=== PATIENT | female | born 1960 | race Caucasian/White ===

== ENCOUNTER 2016-08-04 17:02 | Emergency (ER) | payer MEDICARE ==
--- NOTE | 2016-08-04 18:10 | ED ---
Complex/Multi-Sys Presentation - HPI Summary HPI Summary: Pt PERRI for fall from height. Was standing on a short step ladder painting her [employer] &[employer] when she lost her balance trying to overreach and fell over the side of the railing. The railing is 2' high and deck base is 3' high - she hit the railing on the way down and hurt her Rt arm trying to catch herself - believes her face hit the deck floor and she then landed on her head in gravel beneath the deck, avoiding the concrete. 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 Has facial soreness and Rt sided ear discomfort. Had nausea during ride over but receivd medication and this has dissipated. Posterior neck pain which radiates into her shoulders - wearing a cervical collar. She has Rt wrist pain as well - worse w/ palpation and movement although she is in an UE splint. She denies chest pain at rest, with palpation or w/ UE movements and deep breathes. Also denies ab pain, pelvic pain. She was able to stand and ambulate after the injury and is moving her LE' s well now w/o pain or difficulty. She had a Lt hip replacement which seems to be okay despite this fall. Denies numbness, tingling, weakness into extremities. Took an ibuprofen around 16:30 prior to coming here in an effort to stay ahead of the inflammation. She has RA and takes enbril, ibuprofen and 1/2 of 5/325mg of norco only on really bad days to take the edge off. Also takes something for hypertension. Former smoker. No known osteoporosis. No reported ETOH abuse. - History Of Current Complaint Chief Complaint: EDTraumaMultiple Time Seen by Provider: 08/04/16 17:40 Hx Obtained From: Patient - Allergies/Home Medications Allergies/Adverse Reactions: Allergies Allergy/AdvReac Type Severity Reaction Status Date / Time No Known Allergies Allergy Verified 12/18/14 12:19 PMH/Surg Hx/FS Hx/Imm Hx Previously Healthy: Yes Endocrine/Hematology History: Reports: Autoimmune Disease - RA Denies: Hx Anticoagulant Therapy, Hx Blood Disorders Cardiovascular History: Reports: Hx Hypertension GI History: Reports: Hx Gall Bladder Disease - s/p cholecystectomy Musculoskeletal History: Reports: Hx Arthritis - RA, Other Musculoskeletal History - Lt THR - no complications Psychiatric History: Denies: Hx Substance Abuse - Cancer History Hx Chemotherapy: No Hx Radiation Therapy: No Infectious Disease History: No Infectious Disease History: Denies: Traveled Outside the [place] in Last 30 Days - Family History Known Family History: Positive: None - Social History 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 Negative: Dental Pain, Nasal Discharge Negative: Palpitations, Chest Pain Negative: Shortness Of Breath, Cough Positive: Nausea - see HPI. Negative: Abdominal Pain, Vomiting, Diarrhea Positive: no symptoms reported Musculoskeletal: Other - see HPI Skin: Other - facial abrasions - last tetanus vaccine in 2012 Positive: Headache - see HPI. Negative: Weakness, Paresthesia, Numbness, Slurred Speech Psychological: Normal All Other Systems Reviewed And Are Negative: Yes Physical Exam Triage Information Reviewed: Yes Vital Signs On Initial Exam: Initial Vitals Temp Pulse Resp BP Pulse Ox 99.4 F 71 16 127/83 93 08/04/16 17:21 08/04/16 17:21 08/04/16 17:21 08/04/16 17:21 08/04/16 17:21 Vital Signs Reviewed: Yes Appearance: Positive: Well-Appearing, Well-Nourished, Pain Distress - mild to moderate Skin: Positive: Warm - superficial abrasion over bridge of nose and even more superficial areas over forehead, cheeks (Rt > Lt) Head/Face: Positive: Normal Head/Face Inspection Eyes: Positive: Normal, EOMI, JAVIER, Conjunctiva Clear. Negative: Conjunctiva Inflammed, Discharge ENT: Positive: Normal ENT inspection, Hearing grossly normal, Pharynx normal, TMs normal - no hemotympanum. Negative: Nasal congestion, Nasal drainage Dental: Positive: Other - maxillary region is edendutlous. Negative: Dental Fracture @ Neck: Positive: Other: - will evaluate after CT scan Respiratory/Lung Sounds: Positive: Clear to Auscultation, Breath Sounds Present. Negative: Rales, Rhonchi, Subcutaneous Emphysema, Stridor, Tracheal Deviation, Wheezes Cardiovascular: Positive: Normal, RRR, Pulses are Symmetrical in both Upper and Lower Extremities. Negative: Leg Edema Left, Leg Edema Right Abdomen Description: Positive: Nontender, No Organomegaly, Soft Bowel Sounds: Positive: Present Musculoskeletal: Positive: Strength/ROM Intact - B/L LE's and Lt UE; Rt shoulder w/ FROM and NTTP however elbow and wrist movments are limited w/ splint in place - moving fingers well but has pain in wrist w/ gripping, MC trigger wrist pain, forearm pain Neurological: Positive: Normal, Sensory/Motor Intact, Alert, Oriented to Person Place, Time, CN Intact II-III Psychiatric: Positive: Normal - Jyoti Coma Scale Coma Scale Total: 15 Procedures - Procedure Summary Procedure Summary: superficial wounds on face cleansed and triple antibiotic applied - pt tolerated well - Splinting Location: Rt wrist Hand-Made Type: fiberglass Splint: sugar-tong Pre-Proc Neuro Vasc Exam: normal Post-Proc Neuro Vasc Exam: normal Diagnostics - Vital Signs Vital Signs Temp Pulse Resp BP Pulse Ox 08/04/16 17:30 77 129/91 95 08/04/16 17:24 76 127/83 93 08/04/16 17:23 78 94 08/04/16 17:21 99.4 F 71 16 127/83 93 - Laboratory Lab Statement: Any lab studies that have been ordered have been reviewed, and results considered in the medical decision making process. Complex Multi-Symp Course/Dx - Diagnoses Provider Diagnoses: Cervical strain, acute, Concussion, Closed fracture of distal end of right radius, Facial abrasion Discharge - Discharge Plan Condition: Stable Disposition: HOME Patient Education Materials: Cervical Strain (ED), Wrist Fracture in Adults (ED ), Concussion (ED), Splint Care (ED), Abrasion (ED) Referrals: Josh Khalil MD [Primary Care Provider] - Jair Simental MD [Medical Doctor] - Additional Instructions: You have a concussion. It is important that you rest both cognitively and physically until cleared by your PCP to do so. Follow-up this Wednesday for a neurological recheck. Call tomorrow to schedule an appointment. You also have a right wrist fracture. You may rest, ice and elevate this arm while in splint. You may take ibuprofen and acetaminophen as needed for pain. A short course of muscle relaxers (flexeril) have been provided for home use as needed for muscle spasm - take 1 tab by mouth every 8 hours as needed but do not take if you have neurological deficits (see below). Keep splint in place until seen by orthopedic surgeon. Call tomorrow to schedule an appointment for follow-up. Contact information provided below (Dr. Simental). *If you develop severe headache, vomiting, confusion, syncope, weakness, return to ED
--- NOTE | 2016-08-04 18:54 | RAD ---
indication: Loss of consciousness and neck pain after falling off a ladder. COMPARISON: None A CT scan of the brain and c-spine was performed without intravenous contrast enhancement. Contiguous axial sections were obtained from the lung apices through the vertex. BRAIN: The ventricles, cisterns and sulci are within normal limits. No significant focal abnormality or mass effect is seen. The singh-white differentiation is adequately maintained. There is no evidence for intracranial hemorrhage. No significant bony abnormality is present. The mastoid air cells are appropriately aerated. The visualized paranasal sinuses are clear. C-SPINE: On the sagittal view images the vertebral bodies and bilateral facet joints are correctly aligned. The dens is intact and the atlantoaxial interval is not widened. The intervertebral body heights are maintained. Mild degenerative changes include loss of intervertebral disc height. There is no hyperdense material in the cervical canal to indicate hemorrhage. The visualized musculature and soft tissues are normal. There is no gross lymphadenopathy visualized. The visualized portion of the lung apices are clear. IMPRESSION: 1. No calvarial fracture or acute intracranial hemorrhage. 2. No fracture or dislocation of the cervical spine.
[2016-08-04] MEDS ORDERED: Ketorolac INJ* 30 MG/ML 1 ML VIAL IV PUSH ONE (19:25)
[2016-08-04] MEDS ORDERED: Acetaminophen TAB* 325 MG PO ONE (19:26)
--- NOTE | 2016-08-04 19:26 | RAD ---
INDICATION: Right wrist pain after a fall from 6 feet. COMPARISON: Right hand radiograph dated February 19, 2016 TECHNIQUE: 4 views right wrist. REPORT: There is a nondisplaced fracture through the radial aspect distal right radius with the fracture line communicating with the articulating surface of the distal radius. The remaining visualized bones are intact and properly aligned. There is no pathologic right elbow effusion. IMPRESSION: Nondisplaced fracture involving the distal lateral aspect right radius.
[2016-08-04] MEDS ORDERED: Cyclobenzaprine TAB* 10 MG PO ONE (20:03)
[2016-08-04 21:29] VITALS: BP 126/73
== END 2016-08-04 21:29 | disposition home or self-care (01) ==
LOC: ED 17:02
DX: S52.501A Unspecified fracture of the lower end of right radius, initial encounter for closed fracture (principal); S16.1XXA Strain of muscle, fascia and tendon at neck level, initial encounter; S06.0X9A Concussion with loss of consciousness of unspecified duration, initial encounter; S00.81XA Abrasion of other part of head, initial encounter; W11.XXXA Fall on and from ladder, initial encounter; Y93.H9 Activity, other involving exterior property and land maintenance, building and construction; Y92.9 Unspecified place or not applicable; M06.9 Rheumatoid arthritis, unspecified
CPT/HCPCS: 29125; 70450; 72125; 96374; 99282; A9270-GY; J1885

== ENCOUNTER 2018-04-28 08:16 | Inpatient (IN) | payer MEDICARE ==
--- NOTE | 2018-04-13 16:55 | HP ---
HISTORY AND PHYSICAL: DATE OF ADMISSION/SURGERY: 04/28/18 DATE OF OFFICE VISIT: 04/13/18 SURGEON: Kirstin Blum MD * (DICTATED BY SHANE BERUMEN) PROCEDURE: Right total knee arthroplasty. CHIEF COMPLAINT: Right knee pain. HISTORY OF PRESENT ILLNESS: Ms. Kimble is a 57-year-old female with end- stage osteoarthritis of the right knee. She has failed conservative treatment and elected to proceed with a right total knee arthroplasty. PAST MEDICAL HISTORY: Rheumatoid arthritis, asthma, hypertension, and high cholesterol. PAST SURGICAL HISTORY: Left total hip arthroplasty, tonsillectomy, cholecystectomy, and left shoulder rotator cuff repair. CURRENT MEDICATIONS: 1. Lisinopril 2.5 mg daily. 2. Methotrexate 2.5 mg 3 tabs every week. 3. ProAir HFA. 4. Omeprazole 20 mg daily. 5. Atorvastatin calcium 20 mg daily. 6. Cyclobenzaprine 5 mg. 7. Ibuprofen 600 as needed. 8. [place]. 9. Folic acid. 10. Enbrel SureClick. 11. Aspirin 81 mg daily. ALLERGIES: No known drug allergies. FAMILY HISTORY: Diabetes and cancer. 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 She does not smoke. She quit this past December. She denies use of drugs. Uses occasional alcohol. REVIEW OF SYSTEMS: A complete 14-point review of systems was reviewed with the patient. Positive for history of a DVT in the right lower extremity approximately 15 to 20 years ago, also positive for asthma. She denies history of hepatitis, HIV, or anesthesia problems. PHYSICAL EXAMINATION GENERAL: She is well developed, well nourished, in no acute distress. VITAL SIGNS: She stands 5 feet tall, weighs 138 pounds. Her blood pressure is 129/82 and her heart rate is 80. HEENT: Normocephalic, atraumatic. NECK: Supple. No palpable lymph nodes. PULMONARY: The lungs are clear to auscultation bilaterally. CARDIO: Regular rate and rhythm. Strong S1, S2. ABDOMEN: Soft, nontender, nondistended. MUSCULOSKELETAL: Right lower extremity: The skin is intact. There are no open wounds or abrasions. There is a moderate joint effusion of the right knee. Range of motion is 10 to 120 degrees of flexion. She has varus deformity of the knee, 2+ dorsalis pedis pulse, and intact sensation. ASSESSMENT AND PLAN: Ms. Kimble is a 57-year-old female with end-stage osteoarthritis of the right knee. She has failed conservative treatment and elected to proceed with a right total knee arthroplasty. Her surgery is scheduled for 04/28/[address] Blum discussed the risks and benefits of the surgery at today's visit and all of her questions were answered. She will follow up with Dr. Blum 2 weeks after the surgery. No TXA will be used on this patient. She will be placed on Eliquis twice daily for DVT prophylaxis postoperatively. SHANE BERUMEN [id number]/[facility] #: [id number] MTDD
[~2018-04-28 08:16] MED LIST: Acetaminophen IV 1GM/100ML * 1,000 MG/100 ML VIAL IVPB ONE; Dexamethasone IV* 4 MG/ML 1 ML (4 MG) IV SLOW PU ONE; Gabapentin CAP(*) 300 MG PO ONE; Lactated Ringers 1000 ML Bag* 1,000 ML IV SCH; Tranexamic Acid 1,000 MG in NS 0.9% 50 ML* (outpatient use) IV SCH; celeCOXIB CAP* 200 MG PO ONE
--- OUTSIDE RECORDS SUMMARY | 2018-04-28 08:20 | XMS REPORT | Continuity of Care Document ---
:1960 External Reference #:[id number] Author Name Nury Adams Care Team Providers Name Role Phone Alexys Hernandez MD Primary Care Physician Unavailable Payers Type Date Identification Numbers Payment Provider Subscriber Policy Number: [id number] Medicare Ayse Kimble PayID: [id number] [address] [place] [address] Expires: 2015 Policy Number: [id number] Medicaid Ayse Kimble Group Name: 1 1 [address] PayID: [id number] [place] [address] Expires: 2008 Policy Number: [id number] Medicaid Ayse Kimble Group Name: 1 1 [address] PayID: [id number] [place] [address] Advance Directives Description No Information Available Problems Date Description Provider Status Onset: 11/26/2009 Lymphadenopathy Chasity Mack PA Active Onset: 11/26/2009 Extrinsic asthma without status Chasity Mack PA Active asthmaticus Onset: 11/26/2009 Gastroesophageal reflux disease Chasity Mack PA Active Onset: 11/26/2009 Insomnia Rolo Kang M.D.,FACP Onset: 11/26/2009 Gastrointestinal hemorrhage Chasity Mack PA Active Onset: 11/26/2009 Mixed hyperlipidemia Alexys Hernandez M.D. Active Onset: 03/04/2017 Adult health examination Alexys Hernandez M.D. Active Onset: 03/04/2017 Essential hypertension Alexys Hernandez M.D. Active Onset: 02/04/2018 Rheumatoid arthritis Kirstin Blum M.D. Active Onset: 02/04/2018 Localized, primary osteoarthritis Kirstin Blum M.D. 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 - My Note Cigarette Use Pack Years - 25 Tobacco Use Start: Unknown End: Former Cigarette Smoker Smoking Status Reviewed: 04/13/18 Former Cigarette Smoker ETOH Use consumes 1-2 glasses of wine per week ETOH Use Occasionally consumes alcohol Recreational Drug Use Denies Drug Use Tobacco Use Start: Unknown End: Patient is a former Unknown smoker Exercise Type/Frequency Exercises regularly Allergies, Adverse Reactions, Alerts Description No Known Drug Allergies Medications Medication Date Status Form Strength Qnty SIG Indications Ordering Provider Lisinopril 08/04/19 Active Tablets 2.5mg 90tabs 1 by I10 Zsofia 18 mouth Moises, PHOTOGRAPH EDITOR every day Methotrexate 05/04/19 Active Tablets 2.5mg 36tabs 3 tbs by M06.09 Zsofia 18 mouth Moises, PHOTOGRAPH EDITOR every week Z79.899 Proair HFA 01/26/2017 Active Aerosol 108(90Base) 8.5units 2 puffs Zsofia mcg/Act by mouth Moises, every 4 PHOTOGRAPH EDITOR hours as needed Atorvastatin 01/26/2017 Active Tablets 20mg 90tabs take one E Zsofia Calcium tablet by 7 Moises, mouth 8 PHOTOGRAPH EDITOR every day . 5 Omeprazole 01/26/2017 Active Capsules 20mg 90caps Take One K Zsofia DR Capsule 2 Moises, By Mouth 1 PHOTOGRAPH EDITOR Every Day . 9 Cyclobenzaprine 12/15/2016 Active Tablets 5mg 30tabs take one [place] HCL tablet by Ignacio mathis at a, M.D. bedtime as needed for back pain Ibu 06/30/2016 Active Tablets 600mg 60tabs take one M Zsofia tablet by 0 Moises, mouth 6 PHOTOGRAPH EDITOR twice a . day as 0 needed 9 only Hydrocodone-Aceta 11/20/2015 Active Tablets 5-325mg 30tabs take one Z Zsofia minophen tablet by 7 Moises, mouth 9 PHOTOGRAPH EDITOR daily as . needed 8 for pain 9 1 M54.5 Folic Acid 10/23/2015 Active Tablets 1mg 90tabs take one M06.09 Zsofia capsule/tablet Moises, PHOTOGRAPH EDITOR daily by mouth Z79.899 Enbrel 10/16/2015 Active Solution 50mg/ml 3.92units Inject Z79.899 James Judie Auto-Inject 50MG John, Under M.D. The Skin Every Week M06.09 Aspir-Low Active Tablets DR 81mg 1 by mouth Unknown every day Mucinex 01/27/2018 - Hx Tablets ER 600mg 14t 1 by mouth Zsofia 04/12/2018 12HR abs twice a day Moises, PHOTOGRAPH EDITOR Benzonatate 01/27/2018 - Hx Capsules 100mg 14c take 1 tab Zsofia 04/12/2018 aps by mouth two Moises, times a day PHOTOGRAPH EDITOR as needed for cough Azithromycin 12/21/2017 - Hx Tablets 250mg 6ta 2 tab today J02 [place] 04/12/2018 bs and then .8 David, 1tab daily M.DSandip Cipro 10/12/2017 - Hx Tablets 500mg 20t twice a day Alexys 10/22/2017 abs Gareth Hernandez Fluticasone 05/04/2017 - Hx Suspension 50mcg/A 16g 1 act each J30 Zsofia Propionate 04/12/2018 ct m nostril .9 Moises, twice daily PHOTOGRAPH EDITOR Lisinopril 07/02/2016 - Hx Tablets 5mg 90t take 1/2 I10 [place] 08/03/2017 abs tablet by delfina Hernandez every M.D. day Tizanidine HCL 05/12/2016 - Hx Tablets 2mg 30t take one tab Zsofia 03/04/2017 abs at bedtime Moises, every day, PHOTOGRAPH EDITOR may increase to 2 tabs at bedtime as needed Tizanidine HCL 05/08/2016 - Hx Capsules 2mg 30c take one tab Zsofia 05/12/2016 aps at bedtime Moises, every day, PHOTOGRAPH EDITOR may increase to 2 tabs at bedtime as needed Skelaxin 05/07/2016 - Hx Tablets 800mg 30t take 1 tab Zsofia 05/08/2016 abs by mouth tid Moises, as needed PHOTOGRAPH EDITOR for back pain Medrol 10/23/2015 - Hx TBPK 4mg 21u take as James 11/07/2015 nit directed ernst Lopez M.D. finished as a medrol dose pack Methotrexate 10/23/2015 - Hx Tablets 2.5mg 48t take 4 M06 Zsofia 05/04/2017 abs tablets by .09 Moises, mouth once PHOTOGRAPH EDITOR weekly on Z79.899 Hydrocodone 10/16/2015 Hx Tablets 5-300mg 60tabs take one M06.09 James Bitartrate/Acetaminophen - capsule/tablet John, 10/16/2015 by mouth twice M.D. daily as needed for pain Naproxen 10/16/2015 Hx Tablets 500mg 180tabs take one M06.09 Zsofia - capsule/tablet Moises, 06/30/2016 daily by mouth PHOTOGRAPH EDITOR as needed for severe pain, avoid with other nsaids (not taking) M17.0 Hydrocodone-Acetaminophen 10/16/2015 Hx Tablets 5-325mg 60tabs take one M06.09 James - capsule/tablet John, 10/17/2015 by mouth twice M.D. daily as needed for pain Naprosyn 01/09/2010 Hx Tablets 375mg 60tabs 1 po bid Alexys Pierre 10/16/2015 G[facility] g[facility]rola [facility] Omeprazole 11/26/2009 Hx Tablets 20mg 60tabs 1 cap bid 530.81 Alexys Pierre 10/16/2015 Gareth gurrola Tricor 11/26/2009 Hx Tablets 145mg 30tabs once at hs 272.2 Alexys Pierre 10/16/2015 Gareth gurrola Hydrocodone-Acetaminophen 11/26/2009 Hx Tablets 5/500mg 30tabs 1 tab po q 6h 714.0 Alexys Pierre 10/16/2015 Gareth gurrola Cephalexin 04/03/2008 Hx Capsules 500mg 30caps 1 tid Ran Lofton 10/09/2009 Gareth Lopez,FAC P Ambien 07/04/2007 Hx Tablets 10mg 30tabs take one half 780.52 [facility]2015 hs prn insomnia Gareth gurrola Omeprazole 06/27/2007 Hx CPDR 20mg 60units take 1 tablet 2 Blake-Ramila - times daily l D. 10/16/2015 Roz Lopez.,FAC P Albuterol Hx Aers 90mcg/Ac 1units inhale 2 puffs [place] - t by mouth four Pachikar 01/26/2017 times a day if Gareth gurrola needed Escitalopram Oxalate Hx Tablets 20mg 1 by mouth Unknown - every day 10/26/2016 Ibuprofen Hx Tablets 600mg 1 by mouth M06.09 Unknown - three times a 10/16/2015 day as needed Ibuprofen Hx Tablets 600mg 30tabs 1 tab by mouth Zsofia - every 4 to 6 Moises, 10/06/2016 hours as needed PHOTOGRAPH EDITOR for pain Brenda-Watson Plus Cold & Hx Capsules 5-2-10-3 Unknown Cough - 25mg 04/12/2018 Nyquil Severe Cold/Flu Hx Liquid 5-6.25-1 Unknown - 0-325mg/ 04/12/2018 15ML Immunizations CPT Code Status Date Vaccine Reaction Lot # [id number] Given 04/12/2018 Influenza Virus Vaccine, no immediate reaction [id number] Quadrivalent, Split, noted Preservative Free 30369 Given 01/04/2018 Pneumococcal Conjugate no immediate reaction [id number] Vaccine 13 Valent For noted Intramuscular Use 90010 Given 01/26/2017 Influenza Virus Vaccine, [id number] Quadrivalent, Split, Preservative Free 73514 Given 03/10/2016 Influenza Virus Vaccine, [id number] Quadrivalent, Split Virus, [place] Use [address] Given 10/16/2015 Pneumonia Vaccine No reaction noted [id number] 34909 Given 02/26/2009 Influenza Virus Vaccine, [id number] Pandemic Formulation Vital Signs Date Vital Result Comment 04/13/2018 8:21am Height 60 inches 5'0" Weight 138.00 lb Heart Rate 80 /min BP Systolic 120 mmHg BP Diastolic 82 mmHg BMI (Body Mass Index) 26.9 kg/m2 04/12/2018 9:57am Height 60 inches 5'0" Weight 135.00 lb Heart Rate 90 /min BP Systolic Sitting 128 mmHg BP Diastolic Sitting 80 mmHg Body Temperature 98.3 F O2 % BldC Oximetry 97 % BMI (Body Mass Index) 26.4 kg/m2 04/12/2018 9:07am Height 60 inches 5'0" Weight 135.25 lb Heart Rate 93 /min BP Systolic 118 mmHg BP Diastolic 84 mmHg Pain Level 7 O2 % BldC Oximetry 98 % BMI (Body Mass Index) 26.4 kg/m2 02/04/2018 11:01am Height 60 inches 5'0" Weight 126.00 lb Heart Rate 69 /min Respiratory Rate 16 /min Pain Level 8 BMI (Body Mass Index) 24.6 kg/m2 01/04/2018 12:53pm Height 60 inches 5'0" Weight 131.25 lb Heart Rate 85 /min BP Systolic Sitting 128 mmHg BP Diastolic Sitting 98 mmHg Pain Level 5 O2 % BldC Oximetry 97 % BMI (Body Mass Index) 25.6 kg/m2 12/21/2017 10:42am Height 60 inches 5'0" Weight 130.00 lb Heart Rate 100 /min BP Systolic 126 mmHg sitting right arm BP Diastolic 100 mmHg sitting right arm Body Temperature 98.5 F O2 % BldC Oximetry 97 % BMI (Body Mass Index) 25.4 kg/m2 08/03/2017 12:58pm Height 60 inches 5'0" Weight 136.50 lb Heart Rate 95 /min BP Systolic Sitting 118 mmHg BP Diastolic Sitting 80 mmHg Pain Level 6 O2 % BldC Oximetry 97 % BMI (Body Mass Index) 26.7 kg/m2 05/04/2017 1:05pm Height 60 inches 5'0" Weight 138.56 lb Heart Rate 88 /min BP Systolic Sitting 120 mmHg BP Diastolic Sitting 80 mmHg Respiratory Rate 14 /min Pain Level 5 BMI (Body Mass Index) 27.1 kg/m2 03/04/2017 2:27pm Height 60 inches 5'0" Weight 132.00 lb Heart Rate 87 /min BP Systolic Sitting 120 mmHg BP Diastolic Sitting 95 mmHg Body Temperature 96.7 F O2 % BldC Oximetry 96 % BMI (Body Mass Index) 25.8 kg/m2 01/26/2017 12:41pm Height 60 inches 5'0" Weight 131.00 lb w/ shoes Heart Rate 88 /min reg BP Systolic Sitting 144 mmHg Rue, reg cuff BP Diastolic Sitting 102 mmHg Rue, reg cuff Respiratory Rate 16 /min Pain Level 2 body BMI (Body Mass Index) 25.6 kg/m2 10/06/2016 12:45pm Height 60 inches 5'0" Weight 135.00 lb Heart Rate 84 /min BP Systolic Sitting 118 mmHg BP Diastolic Sitting 80 mmHg Respiratory Rate 14 /min Pain Level 5 BMI (Body Mass Index) 26.4 kg/m2 06/30/2016 1:48pm BP Systolic 180 mmHg BP Diastolic 116 mmHg 06/30/2016 1:00pm Height 60 inches 5'0" Weight 138.00 lb Heart Rate 92 /min BP Systolic Sitting 174 mmHg BP Diastolic Sitting 123 mmHg Respiratory Rate 14 /min Pain Level 7 BMI (Body Mass Index) 26.9 kg/m2 03/10/2016 12:48pm Height 60 inches 5'0" Weight 128.00 lb Heart Rate 84 /min BP Systolic Sitting 120 mmHg BP Diastolic Sitting 80 mmHg Body Temperature 97.9 F Pain Level 4 BMI (Body Mass Index) 25.0 kg/m2 01/06/2016 12:51pm Height 60 inches 5'0" Weight 123.00 lb Heart Rate 84 /min BP Systolic Sitting 160 mmHg BP Diastolic Sitting 100 mmHg Respiratory Rate 14 /min Body Temperature 98.9 F Pain Level 5 BMI (Body Mass Index) 24.0 kg/m2 11/07/2015 1:11pm Height 60 inches 5'0" Weight 130.38 lb Heart Rate 80 /min BP Systolic Sitting 128 mmHg BP Diastolic Sitting 84 mmHg Respiratory Rate 14 /min Body Temperature 98.2 F BMI (Body Mass Index) 25.5 kg/m2 11/07/2015 12:46pm Height 60 inches 5'0" Weight 130.38 lb Heart Rate 80 /min BP Systolic Sitting 126 mmHg BP Diastolic Sitting 88 mmHg Respiratory Rate 14 /min Body Temperature 98.3 F Pain Level 6 BMI (Body Mass Index) 25.5 kg/m2 10/16/2015 12:54pm Height 60 inches 5'0" Weight 130.00 lb Heart Rate 72 /min BP Systolic Sitting 150 mmHg BP Diastolic Sitting 80 mmHg Respiratory Rate 14 /min Body Temperature 99.1 F Pain Level 10 BMI (Body Mass Index) 25.4 kg/m2 11/26/2009 9:21am Weight 124.00 lb Heart Rate 72 /min BP Systolic Sitting 122 mmHg BP Diastolic Sitting 80 mmHg 04/02/2008 10:56am Height 59.5 inches 4'11.50" Weight 124.00 lb Heart Rate 56 /min BP Systolic Sitting 100 mmHg BP Diastolic Sitting 60 mmHg BMI (Body Mass Index) 24.6 kg/m2 03/21/2008 1:01pm Height 59.5 inches 4'11.50" Weight 124.00 lb Heart Rate 64 /min BP Systolic Sitting 118 mmHg BP Diastolic Sitting 62 mmHg BMI (Body Mass Index) 24.6 kg/m2 07/04/2007 2:36pm Height 59.5 inches 4'11.50" Weight 131.00 lb Heart Rate 78 /min BP Systolic Sitting 128 mmHg BP Diastolic Sitting 72 mmHg Respiratory Rate 20 /min Body Temperature 98.3 F BMI (Body Mass Index) 26.0 kg/m2 Results Test Date Facility Test Result H/L Range Note Laboratory test 04/13/2018 [facility] C Reactive 5.87 mg/L N < 8.01 1, [address] [place] [address] [phone] Erythrocyte Sed Rate 18 mm/Hr N 0-30 3 CBC Auto Diff 04/13/2018 [facility] White Blood 6.9 10^3/uL N 3.5-10.[address] [place] [address] [phone] Red Blood Count 4.10 10^6/uL N 4.00-5.40 Hemoglobin 13.2 g/dL N 12.0-16.0 Hematocrit 39 % N 35-47 Mean Corpuscular Volume 96 fL N 80-97 Mean Corpuscular Hemoglobin 32 pg High 27-31 Mean Corpuscular HGB Conc 34 g/dL N 31-36 Red Cell Distribution Width 14 % N 10.5-15 Platelet Count 292 10^3/uL N 150-450 Mean Platelet Volume 9.0 fL N 7.4-10.4 Abs Neutrophils 3.9 10^3/uL N 1.5-7.7 Abs Lymphocytes 2.4 10^3/uL N 1.0-4.8 Abs Monocytes 0.5 10^3/uL N 0-0.8 Abs Eosinophils 0.1 10^3/uL N 0-0.6 Abs Basophils 0 10^3/uL N 0-0.2 Abs Nucleated RBC 0 10^3/uL Granulocyte % 55.8 % Lymphocyte % 34.3 % Monocyte % 7.3 % Eosinophil % 1.9 % Basophil % 0.7 % Nucleated Red Blood Cells % 0 Inr/Protime 04/13/2018 [facility] Inr 0.98 N 0.77-1.[address] [place] [address] [phone] Laboratory test 04/13/2018 [facility] Partial 28.2 seconds N 26.0-36.3 4 finding 101 [facility] [place] [address] PTT [phone] Comp Metabolic 04/13/2018 [facility] Sodium 139 mmol/L N 135- 145 Panel [address] [place] [address] [phone] Potassium 4.6 mmol/L N 3.5-5.0 Chloride 106 mmol/L N 101-111 Co2 Carbon Dioxide 23 mmol/L N 22-32 Anion Gap 10 mmol/L N 2-11 Glucose 99 mg/dL N 70-100 Blood Urea Nitrogen 15 mg/dL N 6-24 Creatinine 0.51 mg/dL N 0.51-0.95 BUN/Creatinine Ratio 29.4 High 8-20 Calcium 9.8 mg/dL N 8.6-10.3 Total Protein 7.3 g/dL N 6.4-8.9 Albumin 4.4 g/dL N 3.2-5.2 Globulin 2.9 g/dL N 2-4 Albumin/Globulin Ratio 1.5 N 1-3 Total Bilirubin 0.50 mg/dL N 0.2-1.0 Alkaline Phosphatase 78 U/L N 34-104 Alt 20 U/L N 7-52 Ast 19 U/L N 13-39 Egfr Non- 124.7 >60 Egfr 150.9 >60 5 Type & Screen 04/13/2018 [facility] Patient Blood Type A Positive [address] [place] [address] [phone] Antibody Screen NEGATIVE Urinalysis Profile 04/13/2018 [facility] Urine Color Straw [address] [place] [address] [phone] Urine Appearance Clear Urine Specific [place] 1.005 Low 1.010-1.030 Urine pH 6.0 N 5-9 Urine Urobilinogen Negative Negative Urine Ketones Negative Negative Urine Protein Negative Negative Urine Leukocytes Negative Negative Urine Blood 1+ Abnormal Negative Urine Nitrite Negative Negative Urine Bilirubin Negative Negative Urine Glucose Negative Negative Urine White Blood Cell Trace(0-5/hpf) Absent Urine Red Blood Cell Trace(0-2/hpf) Absent Urine Bacteria Absent Absent Urine Squamous Epithelial Cell Present Abnormal Absent Laboratory 01/04/2018 [facility] TSH (Thyroid Stim 1.96 N 0.34 -5.[address] Horm) mcIU/[place] [address] [phone] Lipid Profile 01/04/2018 [facility] Triglycerides 311 mg/dL 6 (Trig/Chol/HDL DRIVE ) [place] [address] [phone] Cholesterol 207 mg/dL 7 HDL Cholesterol 43.4 mg/dL 8 LDL Cholesterol 101 mg/dL 9 Comp Metabolic Panel 01/04/2018 [facility] Sodium 137 mmol/L N 135-[address] [place] [address] [phone] Potassium 4.8 mmol/L N 3.5-5.0 Chloride 107 mmol/L N 101-111 Co2 Carbon Dioxide 23 mmol/L N 22-32 Anion Gap 7 mmol/L N 2-11 Glucose 103 mg/dL High 70-100 Blood Urea Nitrogen 17 mg/dL N 6-24 Creatinine 0.53 mg/dL N 0.51-0.95 BUN/Creatinine Ratio 32.1 High 8-20 Calcium 9.8 mg/dL N 8.6-10.3 Total Protein 7.7 g/dL N 6.4-8.9 Albumin 4.5 g/dL N 3.2-5.2 Globulin 3.2 g/dL N 2-4 Albumin/Globulin Ratio 1.4 N 1-3 Total Bilirubin 0.50 mg/dL N 0.2-1.0 Alkaline Phosphatase 96 U/L N 34-104 Alt 20 U/L N 7-52 Ast 20 U/L N 13-39 Egfr Non- 119.3 >60 Egfr 144.4 >60 10 Laboratory test 01/04/2018 [facility] C Reactive 8.64 mg/L High <8.[address] [place] [address] [phone] CBC Auto Diff 01/04/2018 [facility] White Blood 7.4 N 3.5- 10.8 DRIVE Count 10^3/[place] [address] [phone] Red Blood Count 4.09 10^6/uL N 4.00-5.40 Hemoglobin 13.4 g/dL N 12.0-16.0 Hematocrit 40 % N 35-47 Mean Corpuscular Volume 97 fL N 80-97 Mean Corpuscular Hemoglobin 33 pg High 27-31 Mean Corpuscular HGB Conc 34 g/dL N 31-36 Red Cell Distribution Width 14 % N 10.5-15 Platelet Count 297 10^3/uL N 150-450 Mean Platelet Volume 9.0 um3 N 7.4-10.4 Abs Neutrophils 4.7 10^3/uL N 1.5-7.7 Abs Lymphocytes 2.0 10^3/uL N 1.0-4.8 Abs Monocytes 0.5 10^3/uL N 0-0.8 Abs Eosinophils 0.2 10^3/uL N 0-0.6 Abs Basophils 0 10^3/uL N 0-0.2 Abs Nucleated RBC 0 10^3/uL Granulocyte % 63.7 % N 38-83 Lymphocyte % 26.4 % N 25-47 Monocyte % 7.0 % N 0-7 Eosinophil % 2.4 % N 0-6 Basophil % 0.5 % N 0-2 Nucleated Red Blood Cells % 0.1 Laboratory test 01/04/2018 [facility] Erythrocyte Sed 31 mm/Hr High 0-[address] [place] [address] [phone] Basic Metabolic 10/12/2017 [facility] Sodium 139 N 135-[address] mmol/[place] [address] [phone] Potassium 4.3 mmol/L N 3.5-5.0 Chloride 104 mmol/L N 101-111 Co2 Carbon Dioxide 24 mmol/L N 22-32 Anion Gap 11 mmol/L N 2-11 Glucose 85 mg/dL N 70-100 Blood Urea Nitrogen 11 mg/dL N 6-24 Creatinine 0.57 mg/dL N 0.51-0.95 BUN/Creatinine Ratio 19.3 N 8-20 Calcium 9.7 mg/dL N 8.6-10.3 Egfr Non- 109.7 >60 Egfr 141.1 >60 11 CBC Auto Diff 10/07/2017 [facility] White Blood 7.2 10^3/uL N 3.5-10.[address] [place] [address] [phone] Red Blood Count 4.21 10^6/uL N 4.00-5.40 Hemoglobin 13.8 g/dL N 12.0-16.0 Hematocrit 40 % N 35-47 Mean Corpuscular Volume 95 fL N 80-97 Mean Corpuscular Hemoglobin 33 pg High 27-31 Mean Corpuscular HGB Conc 35 g/dL N 31-36 Red Cell Distribution Width 15 % N 10.5-15 Platelet Count 278 10^3/uL N 150-450 Mean Platelet Volume 8.9 um3 N 7.4-10.4 Abs Neutrophils 4.5 10^3/uL N 1.5-7.7 Abs Lymphocytes 1.8 10^3/uL N 1.0-4.8 Abs Monocytes 0.7 10^3/uL N 0-0.8 Abs Eosinophils 0.2 10^3/uL N 0-0.6 Abs Basophils 0 10^3/uL N 0-0.2 Abs Nucleated RBC 0 10^3/uL Granulocyte % 61.8 % N 38-83 Lymphocyte % 24.8 % Low 25-47 Monocyte % 10.2 % High 0-7 Eosinophil % 2.8 % N 0-6 Basophil % 0.4 % N 0-2 Nucleated Red Blood Cells % 0.1 Comp Metabolic Panel 10/07/2017 [facility] Sodium 136 mmol/L Low 139-[address] [place] [address] [phone] Potassium 4.1 mmol/L N 3.5-5.0 Chloride 103 mmol/L N 101-111 Co2 Carbon Dioxide 23 mmol/L N 22-32 Anion Gap 10 mmol/L N 2-11 Glucose 102 mg/dL High 70-100 Blood Urea Nitrogen 15 mg/dL N 6-24 Creatinine 0.58 mg/dL N 0.51-0.95 BUN/Creatinine Ratio 25.9 High 8-20 Calcium 9.7 mg/dL N 8.6-10.3 Total Protein 7.5 g/dL N 6.4-8.9 Albumin 4.4 g/dL N 3.2-5.2 Globulin 3.1 g/dL N 2-4 Albumin/Globulin Ratio 1.4 N 1-3 Total Bilirubin 0.40 mg/dL N 0.2-1.0 Alkaline Phosphatase 102 U/L N 34-104 Alt 22 U/L N 7-52 Ast 22 U/L N 13-39 Egfr Non- 107.5 >60 Egfr 138.3 >60 13 Laboratory test 10/07/2017 [facility] C Reactive 30.96 mg/L High < 5.00 [address] [place] [address] [phone] Erythrocyte Sed Rate 34 mm/Hr High 0-30 15 Laboratory test 10/07/2017 [facility] Stool Culture SEE RESULT 16, [address] [place] [address] [phone] Salmonella Confirmation [facility] SEE RESULT BELOW 18 Lipid Profile 07/31/2017 [facility] Triglycerides 213 mg/dL 19, 20 (Trig/Chol/HDL) [address] [place] [address] [phone] Cholesterol 180 mg/dL 21 HDL Cholesterol 50.7 mg/dL 22 LDL Cholesterol 87 mg/dL 23 Comp Metabolic Panel 07/31/2017 [facility] Sodium 138 mmol/L Low 139-[address] [place] [address] [phone] Potassium 4.2 mmol/L N 3.5-5.0 Chloride 105 mmol/L N 101-111 Co2 Carbon Dioxide 18 mmol/L Low 22-32 Anion Gap 15 mmol/L High 2-11 Glucose 94 mg/dL N 70-100 Blood Urea Nitrogen 18 mg/dL N 6-24 Creatinine 0.58 mg/dL N 0.51-0.95 BUN/Creatinine Ratio 31.0 High 8-20 Calcium 9.9 mg/dL N 8.6-10.3 Total Protein 7.9 g/dL N 6.4-8.9 Albumin 4.8 g/dL N 3.2-5.2 Globulin 3.1 g/dL N 2-4 Albumin/Globulin Ratio 1.5 N 1-3 Total Bilirubin 0.60 mg/dL N 0.2-1.0 Alkaline Phosphatase 91 U/L N 34-104 Alt 20 U/L N 7-52 Ast 20 U/L N 13-39 Egfr Non- 107.5 >60 Egfr 138.3 >60 24 Laboratory test 07/31/2017 [facility] C Reactive 2.19 mg/L N < 5.00 [address] [place] [address] [phone] TSH (Thyroid Stim Horm) 2.09 mcIU/mL N 0.34-5.60 26 CBC Auto Diff 05/04/2017 [facility] White Blood 8.0 10^3/uL N 3.5-10.[address] [place] [address] [phone] Red Blood Count 4.01 10^6/uL N 4.0-5.4 Hemoglobin 13.5 g/dL N 12.0-16.0 Hematocrit 39 % N 35-47 Mean Corpuscular Volume 98 fL High 80-97 Mean Corpuscular Hemoglobin 34 pg High 27-31 Mean Corpuscular HGB Conc 35 g/dL N 31-36 Red Cell Distribution Width 14 % N 10.5-15 Platelet Count 302 10^3/uL N 150-450 Mean Platelet Volume 9 um3 N 7.4-10.4 Abs Neutrophils 5.4 10^3/uL N 1.5-7.7 Abs Lymphocytes 1.8 10^3/uL N 1.0-4.8 Abs Monocytes 0.6 10^3/uL N 0-0.8 Abs Eosinophils 0.2 10^3/uL N 0-0.6 Abs Basophils 0 10^3/uL N 0-0.2 Abs Nucleated RBC 0 10^3/uL Granulocyte % 66.8 % N 38-83 Lymphocyte % 23.0 % Low 25-47 Monocyte % 7.5 % N 1-9 Eosinophil % 2.3 % N 0-6 Basophil % 0.4 % N 0-2 Nucleated Red Blood Cells % 0.1 Comp Metabolic Panel 05/04/2017 [facility] Sodium 135 mmol/L N 133-[address] [place] [address] [phone] Potassium 4.3 mmol/L N 3.5-5.0 Chloride 103 mmol/L N 101-111 Co2 Carbon Dioxide 24 mmol/L N 22-32 Anion Gap 8 mmol/L N 2-11 Glucose 96 mg/dL N 70-100 Blood Urea Nitrogen 18 mg/dL N 6-24 Creatinine 0.53 mg/dL N 0.51-0.95 BUN/Creatinine Ratio 34.0 High 8-20 Calcium 9.4 mg/dL N 8.6-10.3 Total Protein 7.6 g/dL N 6.4-8.9 Albumin 4.4 g/dL N 3.2-5.2 Globulin 3.2 g/dL N 2-4 Albumin/Globulin Ratio 1.4 N 1-3 Total Bilirubin 0.50 mg/dL N 0.2-1.0 Alkaline Phosphatase 86 U/L N 34-104 Alt 16 U/L N 7-52 Ast 16 U/L N 13-39 Egfr Non- 119.3 >60 Egfr 153.5 >60 27 Laboratory test 05/04/2017 [facility] C Reactive 12.39 mg/L High < 5.00 28 finding [address] [place] [address] [phone] Erythrocyte Sed Rate 29 mm/Hr N 0-30 29 Comp Metabolic Panel 01/26/2017 [facility] Sodium 136 mmol/L N 133-[address] [place] [address] [phone] Potassium 4.0 mmol/L N 3.5-5.0 Chloride 104 mmol/L N 101-111 Co2 Carbon Dioxide 21 mmol/L Low 22-32 Anion Gap 11 mmol/L N 2-11 Glucose 107 mg/dL High 70-100 Blood Urea Nitrogen 16 mg/dL N 6-24 Creatinine 0.59 mg/dL N 0.51-0.95 BUN/Creatinine Ratio 27.1 High 8-20 Calcium 9.9 mg/dL N 8.6-10.3 Total Protein 8.1 g/dL N 6.4-8.9 Albumin 4.8 g/dL N 3.2-5.2 Globulin 3.3 g/dL N 2-4 Albumin/Globulin Ratio 1.5 N 1-3 Total Bilirubin 0.50 mg/dL N 0.2-1.0 Alkaline Phosphatase 75 U/L N 34-104 Alt 20 U/L N 7-52 Ast 20 U/L N 13-39 Egfr Non- 105.8 N >60 Egfr 136.1 N >60 30 Laboratory test 01/26/2017 [facility] C Reactive 3.24 mg/L N < 5.00 31 finding [address] [place] [address] [phone] CBC Auto Diff 01/26/2017 [facility] White Blood 8.3 N 3.5- 10.[address] Count 10^3/[place] [address] [phone] Red Blood Count 4.29 10^6/uL N 4.0-5.4 Hemoglobin 14.7 g/dL N 12.0-16.0 Hematocrit 43 % N 35-47 Mean Corpuscular Volume 100 fL High 80-97 Mean Corpuscular Hemoglobin 34 pg High 27-31 Mean Corpuscular HGB Conc 34 g/dL N 31-36 Red Cell Distribution Width 15 % N 10.5-15 Platelet Count 314 10^3/uL N 150-450 Mean Platelet Volume 9 um3 N 7.4-10.4 Abs Neutrophils 4.7 10^3/uL N 1.5-7.7 Abs Lymphocytes 2.9 10^3/uL N 1.0-4.8 Abs Monocytes 0.5 10^3/uL N 0-0.8 Abs Eosinophils 0.1 10^3/uL N 0-0.6 Abs Basophils 0 10^3/uL N 0-0.2 Abs Nucleated RBC 0.01 10^3/uL N Granulocyte % 56.7 % N 38-83 Lymphocyte % 35.0 % N 25-47 Monocyte % 6.3 % N 1-9 Eosinophil % 1.5 % N 0-6 Basophil % 0.5 % N 0-2 Nucleated Red Blood Cells % 0.1 N Laboratory test 01/26/2017 [facility] Erythrocyte Sed 19 mm/Hr N 0-[address] [place] [address] [phone] CBC Auto Diff 11/16/2016 [facility] White Blood 6.1 N 3.5- 10.[address] Count 10^3/[place] [address] [phone] Red Blood Count 4.33 10^6/uL N 4.0-5.4 Hemoglobin 14.6 g/dL N 12.0-16.0 Hematocrit 44 % N 35-47 Mean Corpuscular Volume 100 fL High 80-97 Mean Corpuscular Hemoglobin 34 pg High 27-31 Mean Corpuscular HGB Conc 34 g/dL N 31-36 Red Cell Distribution Width 14 % N 10.5-15 Platelet Count 279 10^3/uL N 150-450 Mean Platelet Volume 10 um3 N 7.4-10.4 Abs Neutrophils 3.2 10^3/uL N 1.5-7.7 Abs Lymphocytes 2.4 10^3/uL N 1.0-4.8 Abs Monocytes 0.3 10^3/uL N 0-0.8 Abs Eosinophils 0.2 10^3/uL N 0-0.6 Abs Basophils 0 10^3/uL N 0-0.2 Abs Nucleated RBC 0 10^3/uL N Granulocyte % 52.8 % N 38-83 Lymphocyte % 38.7 % N 25-47 Monocyte % 5.6 % N 1-9 Eosinophil % 2.5 % N 0-6 Basophil % 0.4 % N 0-2 Nucleated Red Blood Cells % 0 N Comp Metabolic Panel 11/16/2016 [facility] Sodium 135 mmol/L N 133-[address] [place] [address] [phone] Potassium 4.3 mmol/L N 3.5-5.0 Chloride 105 mmol/L N 101-111 Co2 Carbon Dioxide 23 mmol/L N 22-32 Anion Gap 7 mmol/L N 2-11 Glucose 90 mg/dL N 70-100 Blood Urea Nitrogen 14 mg/dL N 6-24 Creatinine 0.53 mg/dL N 0.51-0.95 BUN/Creatinine Ratio 26.4 High 8-20 Calcium 9.2 mg/dL N 8.6-10.3 Total Protein 7.4 g/dL N 6.4-8.9 Albumin 4.3 g/dL N 3.2-5.2 Globulin 3.1 g/dL N 2-4 Albumin/Globulin Ratio 1.4 N 1-3 Total Bilirubin 0.50 mg/dL N 0.2-1.0 Alkaline Phosphatase 75 U/L N 34-104 Alt 34 U/L N 7-52 Ast 28 U/L N 13-39 Egfr Non- 119.8 N >60 Egfr 154.0 N >60 32 Laboratory test 11/16/2016 [facility] C Reactive 4.63 mg/L N < 5.00 [address] [place] [address] [phone] Erythrocyte Sed Rate 17 mm/Hr N 0-30 Lipid Profile 11/16/2016 [facility] Triglycerides 370 mg/dL N 34 (Trig/Chol/HDL) [address] [place] [address] [phone] Cholesterol 253 mg/dL N 35 HDL Cholesterol 41.7 mg/dL N 36 LDL Cholesterol 137 mg/dL N 37 CBC Auto Diff 06/23/2016 [facility] White Blood 8.4 10^3/uL N 3.5-10.[address] [place] [address] [phone] Red Blood Count 4.49 10^6/uL N 4.0-5.4 Hemoglobin 14.1 g/dL N 12.0-16.0 Hematocrit 43 % N 35-47 Mean Corpuscular Volume 95 fL N 80-97 Mean Corpuscular Hemoglobin 32 pg High 27-31 Mean Corpuscular HGB Conc 33 g/dL N 31-36 Red Cell Distribution Width 14 % N 10.5-15 Platelet Count 264 10^3/uL N 150-450 Mean Platelet Volume 10 um3 N 7.4-10.4 Abs Neutrophils 4.5 10^3/uL N 1.5-7.7 Abs Lymphocytes 3.1 10^3/uL N 1.0-4.8 Abs Monocytes 0.5 10^3/uL N 0-0.8 Abs Eosinophils 0.2 10^3/uL N 0-0.6 Abs Basophils 0.1 10^3/uL N 0-0.2 Abs Nucleated RBC 0 10^3/uL N Granulocyte % 53.0 % N 38-83 Lymphocyte % 36.9 % N 25-47 Monocyte % 6.5 % N 1-9 Eosinophil % 2.7 % N 0-6 Basophil % 0.9 % N 0-2 Nucleated Red Blood Cells % 0 N Laboratory test 06/23/2016 [facility] Erythrocyte Sed 15 mm/Hr N 0-30 [address] [place] [address] [phone] Comp Metabolic 06/23/2016 [facility] Sodium 137 mmol/L N 133- [address] [place] [address] [phone] Chloride 104 mmol/L N 101-111 Co2 Carbon Dioxide 24 mmol/L N 22-32 Glucose 99 mg/dL N 70-100 Blood Urea Nitrogen 15 mg/dL N 6-24 Creatinine 0.65 mg/dL N 0.51-0.95 BUN/Creatinine Ratio 23.1 High 8-20 Calcium 10.0 mg/dL N 8.6-10.3 Total Protein 7.6 g/dL N 6.4-8.9 Albumin 4.4 g/dL N 3.2-5.2 Globulin 3.2 g/dL N 2-4 Albumin/Globulin Ratio 1.4 N 1-3 Total Bilirubin 0.40 mg/dL N 0.2-1.0 Alkaline Phosphatase 68 U/L N 34-104 Alt 27 U/L N 7-52 Egfr Non- 94.6 N >60 Egfr 121.7 N >60 39 Potassium 5.0 mmol/L N 3.5-5.0 Anion Gap 9 mmol/L N 2-11 Ast 24 U/L N 13-39 Laboratory test 06/23/2016 [facility] C Reactive 2.55 mg/L N < 5.00 [address] [place] [address] [phone] Laboratory test 02/19/2016 [facility] C Reactive 2.91 mg/L N < 5.00 [address] [place] [address] [phone] Erythrocyte Sed Rate 14 mm/Hr N 0-30 42 Comp Metabolic Panel 02/19/2016 [facility] Sodium 137 mmol/L N 133-[address] [place] [address] [phone] Potassium 4.3 mmol/L N 3.5-5.0 Chloride 103 mmol/L N 101-111 Co2 Carbon Dioxide 23 mmol/L N 22-32 Anion Gap 11 mmol/L N 2-11 Glucose 90 mg/dL N 70-100 Blood Urea Nitrogen 16 mg/dL N 6-24 Creatinine 0.50 mg/dL Low 0.51-0.95 BUN/Creatinine Ratio 32.0 High 8-20 Calcium 10.4 mg/dL High 8.6-10.3 Total Protein 8.2 g/dL N 6.4-8.9 Albumin 4.8 g/dL N 3.2-5.2 Globulin 3.4 g/dL N 2-4 Albumin/Globulin Ratio 1.4 N 1-3 Total Bilirubin 0.40 mg/dL N 0.2-1.0 Alkaline Phosphatase 82 U/L N 34-104 Alt 19 U/L N 7-52 Ast 21 U/L N 13-39 Egfr Non- 128.6 N >60 Egfr 165.4 N >60 43 CBC Auto Diff 02/19/2016 [facility] White Blood 8.3 10^3/uL N 3.5-10.[address] [place] [address] [phone] Red Blood Count 4.37 10^6/uL N 4.0-5.4 Hemoglobin 14.7 g/dL N 12.0-16.0 Hematocrit 44 % N 35-47 Mean Corpuscular Volume 100 fL High 80-97 Mean Corpuscular Hemoglobin 34 pg High 27-31 Mean Corpuscular HGB Conc 34 g/dL N 31-36 Red Cell Distribution Width 15 % N 10.5-15 Platelet Count 299 10^3/uL N 150-450 Mean Platelet Volume 10 um3 N 7.4-10.4 Abs Neutrophils 4.3 10^3/uL N 1.5-7.7 Abs Lymphocytes 3.2 10^3/uL N 1.0-4.8 Abs Monocytes 0.5 10^3/uL N 0-0.8 Abs Eosinophils 0.2 10^3/uL N 0-0.6 Abs Basophils 0.1 10^3/uL N 0-0.2 Abs Nucleated RBC 0.01 10^3/uL N Granulocyte % 52.4 % N 38-83 Lymphocyte % 39.0 % N 25-47 Monocyte % 5.5 % N 1-9 Eosinophil % 2.0 % N 0-6 Basophil % 1.1 % N 0-2 Nucleated Red Blood Cells % 0.1 N Comp Metabolic Panel 11/20/2015 [facility] Sodium 136 mmol/L N 133-[address] [place] [address] [phone] Potassium 4.3 mmol/L N 3.5-5.0 Chloride 105 mmol/L N 101-111 Co2 Carbon Dioxide 22 mmol/L N 22-32 Anion Gap 9 mmol/L N 2-11 Glucose 97 mg/dL N 70-100 Blood Urea Nitrogen 18 mg/dL N 6-24 Creatinine 0.53 mg/dL N 0.51-0.95 BUN/Creatinine Ratio 34.0 High 8-20 Calcium 9.2 mg/dL N 8.6-10.3 Total Protein 6.7 g/dL N 6.4-8.9 Albumin 4.0 g/dL N 3.2-5.2 Globulin 2.7 g/dL N 2-4 Albumin/Globulin Ratio 1.5 N 1-3 Total Bilirubin 0.30 mg/dL N 0.2-1.0 Alkaline Phosphatase 89 U/L N 34-104 Alt 11 U/L N 7-52 Ast 14 U/L N 13-39 Egfr Non- 120.2 N >60 Egfr 154.6 N >60 44 CBC Auto Diff 11/20/2015 [facility] White Blood 7.8 10^3/uL N 3.5-10.[address] [place] [address] [phone] Red Blood Count 4.02 10^6/uL N 4.0-5.4 Hemoglobin 13.2 g/dL N 12.0-16.0 Hematocrit 39 % N 35-47 Mean Corpuscular Volume 98 fL High 80-97 Mean Corpuscular Hemoglobin 33 pg High 27-31 Mean Corpuscular HGB Conc 34 g/dL N 31-36 Red Cell Distribution Width 16 % High 10.5-15 Platelet Count 282 10^3/uL N 150-450 Mean Platelet Volume 10 um3 N 7.4-10.4 Abs Neutrophils 4.3 10^3/uL N 1.5-7.7 Abs Lymphocytes 2.7 10^3/uL N 1.0-4.8 Abs Monocytes 0.5 10^3/uL N 0-0.8 Abs Eosinophils 0.2 10^3/uL N 0-0.6 Abs Basophils 0 10^3/uL N 0-0.2 Abs Nucleated RBC 0 10^3/uL N Granulocyte % 55.9 % N 38-83 Lymphocyte % 34.2 % N 25-47 Monocyte % 6.7 % N 1-9 Eosinophil % 2.6 % N 0-6 Basophil % 0.6 % N 0-2 Nucleated Red Blood Cells % 0.1 N Laboratory test 11/20/2015 [facility] C Reactive 5.22 mg/L High < 5.00 [address] [place] [address] [phone] Erythrocyte Sed Rate 17 mm/Hr N 0-30 46 Quantiferon Gold 11/20/2015 [facility] M tuberculosis Negative N Negative [address] [place] [place] [address] [phone] TB Ag minus Nil Result 0 IU/mL N TB Mitogen minus Nil Result > 10.00 IU/mL N TB Nil Result 0.04 IU/mL N 48 Liver Function 11/20/2015 [facility] Total Protein 6.7 g/dL N 6.4-8.[address] [place] [address] [phone] Albumin 3.9 g/dL N 3.2-5.2 Globulin 2.8 g/dL N 2-4 Albumin/Globulin Ratio 1.4 N 1-3 Total Bilirubin 0.30 mg/dL N 0.2-1.0 Direct Bilirubin 0.10 mg/dL N 0.03-0.18 Indirect Bilirubin 0.2 mg/dL Low 0.3-1.0 Alkaline Phosphatase 84 U/L N 34-104 Alt 11 U/L N 7-52 Ast 15 U/L N 13-39 CMP Panel 10/25/2015 [facility] Sodium 140 mmol/L N 133-[address] [place] [address] [phone] Potassium 4.8 mmol/L N 3.5-5.0 Chloride 103 mmol/L N 101-111 Co2 Carbon Dioxide 26 mmol/L N 22-32 Anion Gap 11 mmol/L N 2-11 Glucose 87 mg/dL N 70-100 Blood Urea Nitrogen 10 mg/dL N 6-24 Creatinine 0.67 mg/dL N 0.51-0.95 BUN/Creatinine Ratio 14.9 N 8-20 Calcium 10.0 mg/dL N 8.6-10.3 Total Protein 7.4 g/dL N 6.4-8.9 Albumin 4.3 g/dL N 3.2-5.2 Globulin 3.1 g/dL N 2-4 Albumin/Globulin Ratio 1.4 N 1-3 Total Bilirubin 0.60 mg/dL N 0.2-1.0 Alkaline Phosphatase 87 U/L N 34-104 Alt 14 U/L N 7-52 Ast 21 U/L N 13-39 Egfr Non- 91.7 N >60 Egfr 118.0 N >60 50 Quantiferon Gold 10/22/2015 [facility] M tuberculosis Positive N Negative [address] [place] [address] [phone] TB Ag minus Nil Result 0.65 IU/mL N TB Mitogen minus Nil Result 13.27 IU/mL N TB Nil Result 0.04 IU/mL N 52 Laboratory test 10/22/2015 [facility] C Reactive 8.51 mg/L High < 5.00 [address] [place] [address] [phone] Cyclic Citrullinated Pep Igg <15.6 U N 54 Erythrocyte Sed Rate 18 mm/Hr N 0-30 55 Rheumatoid Factor <15 IU/mL N <15 56 CBC Auto Diff 10/22/2015 [facility] White Blood 8.5 10^3/uL N 3.5-10.[address] [place] [address] [phone] Red Blood Count 4.22 10^6/uL N 4.0-5.4 Hemoglobin 13.4 g/dL N 12.0-16.0 Hematocrit 40 % N 35-47 Mean Corpuscular Volume 95 fL N 80-97 Mean Corpuscular Hemoglobin 32 pg High 27-31 Mean Corpuscular HGB Conc 33 g/dL N 31-36 Red Cell Distribution Width 15 % N 10.5-15 Platelet Count 368 10^3/uL N 150-450 Mean Platelet Volume 9 um3 N 7.4-10.4 Abs Neutrophils 5.4 10^3/uL N 1.5-7.7 Abs Lymphocytes 2.2 10^3/uL N 1.0-4.8 Abs Monocytes 0.5 10^3/uL N 0-0.8 Abs Eosinophils 0.3 10^3/uL N 0-0.6 Abs Basophils 0.1 10^3/uL N 0-0.2 Abs Nucleated RBC 0.01 10^3/uL N Granulocyte % 63.3 % N 38-83 Lymphocyte % 26.4 % N 25-47 Monocyte % 6.1 % N 1-9 Eosinophil % 3.1 % N 0-6 Basophil % 1.1 % N 0-2 Nucleated Red Blood Cells % 0.1 N Laboratory test 10/22/2015 [facility] Anti Nuclear 0.9 U N [address] [place] [address] [phone] Laboratory test 11/26/2009 [facility] [employer] [facility] Hemoglobin A1c 5.7 5-7 finding Lipid Profile 11/22/2009 [facility] Triglyceride 426 High 40- 20 (Trig/Chol/HDL) [address] mg/dL 0 [place] [address] [phone] Cholesterol 251 mg/dL High Less Than 200 58 High Density Lipoprotein 36 mg/dL Low 40-60 59 Cholesterol/HDL Ratio 6.97 AVERAGE High 1-4.44 Low Density Lipoprotein (SEE NOTE) mg/dL Less Than 100 60 Basic Metabolic Panel 11/22/2009 [facility] Sodium 139 mmol/L 135-[address] [place] [address] [phone] Potassium 4.5 mmol/L 3.5-5.0 Chloride 106 mmol/L 101-111 Co2 (Carbon Dioxide) 25.0 mmol/L 22-32 Anion Gap 8.0 mmol/L 2-11 61 Glucose 106 mg/dL High 70-100 62 BUN 9 mg/dL 6-24 Creatinine 0.60 mg/dL 0.50-1.40 One Over Creatinine 1.60 BUN/Creatinine Ratio 15.0 8-20 Calcium 9.4 mg/dL 8.1-9.9 63 eGFR Non- 113.4 > 60 eGFR 137.2 > 60 64 Laboratory test 11/16/2007 [facility] Erythrocyte Sed 1 MM/HR 0-[address] [place] [address] [phone] CBC With 11/16/2007 [facility] White Blood 9.1 CUMM 4.8-10.8 Electronic Diff [address] [place] [address] [phone] Red Cell Count 3.82 CUMM Low 4.2-5.4 Hemoglobin 13.1 g/dL 12.0-16.0 Hematocrit 37 % 35-47 Mean Corpuscular Volume 97 um3 79-97 Mean Corpuscular Hemoglob 34 pg High 27-31 Mean Corpuscular HGB Cone 35 g/dL 32-36 Redcell Distribution WDTH 15 % 10.5-15 Platelet Count 350 CUMM 150-450 Mean Platelet Volume 8.4 um3 7.4-10.4 Gran % 58.2 % 38-83 Lymph % 35.4 % 20-45 Mononuclear % 4.3 % 1-9 Eosinophil % 1.9 % 0-6 Basophil % 0.2 % 0-2 Abs Lymphs 3.2 1.0-4.8 Abs Mononuclear 0.4 0-0.8 Absolute Neutrophil Count 5.3 1.5-7.7 Abs Eosinophils 0.2 0-0.6 Abs Basophils 0 0-0.2 Laboratory test 10/10/2007 [facility] Erythrocyte Sed 10 MM/HR 0-[address] [place] [address] [phone] CBC With 10/10/2007 [facility] White Blood 8.3 CUMM 4.8-10.8 Electronic Diff [address] [place] [address] [phone] Red Cell Count 3.87 CUMM Low 4.2-5.4 Hemoglobin 13.1 g/dL 12.0-16.0 Hematocrit 38 % 35-47 Mean Corpuscular Volume 97 um3 79-97 Mean Corpuscular Hemoglob 34 pg High 27-31 Mean Corpuscular HGB Cone 35 g/dL 32-36 Redcell Distribution WDTH 15 % 10.5-15 Platelet Count 326 CUMM 150-450 Mean Platelet Volume 9.2 um3 7.4-10.4 Gran % 53.7 % 38-83 Lymph % 36.0 % 20-45 Mononuclear % 8.2 % 1-9 Eosinophil % 1.8 % 0-6 Basophil % 0.3 % 0-2 Abs Lymphs 3.0 1.0-4.8 Abs Mononuclear 0.7 0-0.8 Absolute Neutrophil Count 4.4 1.5-7.7 Abs Eosinophils 0.2 0-0.6 Abs Basophils 0 0-0.2 Laboratory test 10/10/2007 [facility] C Reactive < 0.5 mg/dL Less Than finding [address] Protein 0.5 [place] [address] [phone] Liver Function 10/10/2007 [facility] Total Protein 7.2 GM/DL 6.2-8.[address] [place] [address] [phone] Albumin 4.2 GM/DL 3.6-5.4 Globulin 3.0 GM/DL 2-4 Albumin/Globulin Ratio 1.4 1-3 Bilirubin Total 0.5 mg/dL 0.4-1.5 Bilirubin Direct 0.1 mg/dL 0.1-0.5 Indirect Bilirubin 0.4 mg/dL 0.1-0.75 Alkaline Phosphatase 55 U/L 30-110 Alt (SGPT) 25 U/L 14-54 Ast (Sgot) 25 U/L 12-42 Basic Metabolic Panel 10/10/2007 [facility] Sodium 139 mmol/L 135-145 [address] [place] [address] [phone] Potassium 4.1 mmol/L 3.5-5.0 Chloride 108 mmol/L 101-111 Co2 (Carbon Dioxide) 26.0 mmol/L 22-32 Anion Gap 5.0 mmol/L 2-11 65 Glucose 105 mg/dL 70-105 BUN 14 mg/dL 6-24 Creatinine 0.7 mg/dL 0.5-1.4 One Over Creatinine 1.42 BUN/Creatinine Ratio 20.0 8-20 Calcium 9.6 mg/dL 8.1-9.9 66 Basic Metabolic Panel 09/09/2007 [facility] Sodium 141 mmol/L 135-145 [address] [place] [address] [phone] Potassium 3.8 mmol/L 3.5-5.0 Chloride 108 mmol/L 101-111 Co2 (Carbon Dioxide) 25.0 mmol/L 22-32 Anion Gap 8.0 mmol/L 2-11 67 Glucose 107 mg/dL High 70-105 BUN 10 mg/dL 6-24 Creatinine 0.7 mg/dL 0.5-1.4 One Over Creatinine 1.42 BUN/Creatinine Ratio 14.3 8-20 Calcium 9.4 mg/dL 8.7-10.2 Liver Function 09/09/2007 [facility] Total Protein 7.1 GM/DL 6.2-8.1 Panel [address] [place] [address] [phone] Albumin 4.2 GM/DL 3.6-5.4 Globulin 2.9 GM/DL 2-4 Albumin/Globulin Ratio 1.4 1-3 Bilirubin Total 0.5 mg/dL 0.4-1.5 Bilirubin Direct < 0.1 mg/dL Low 0.1-0.5 Alkaline Phosphatase 61 U/L 30-110 Alt (SGPT) 17 U/L 14-54 Ast (Sgot) 20 U/L 12-42 Laboratory test 09/09/2007 [facility] C Reactive < 0.5 Less Than finding [address] Protein mg/dL 0.5 [place] [address] [phone] CBC With 09/09/2007 [facility] White Blood 11.6 CUMM High 4.8- 10.8 Electronic Diff [address] [place] [address] [phone] Red Cell Count 4.00 CUMM Low 4.2-5.4 Hemoglobin 13.6 g/dL 12.0-16.0 Hematocrit 39 % 35-47 Mean Corpuscular Volume 98 um3 High 79-97 Mean Corpuscular Hemoglob 34 pg High 27-31 Mean Corpuscular HGB Cone 35 g/dL 32-36 Redcell Distribution WDTH 15 % 10.5-15 Platelet Count 309 CUMM 150-450 Mean Platelet Volume 9.5 um3 7.4-10.4 Gran % 63.8 % 38-83 Lymph % 30.0 % 20-45 Mononuclear % 4.9 % 1-9 Eosinophil % 1.1 % 0-6 Basophil % 0.2 % 0-2 Abs Lymphs 3.5 1.0-4.8 Abs Mononuclear 0.6 0-0.8 Absolute Neutrophil Count 7.4 1.5-7.7 Abs Eosinophils 0.1 0-0.6 Abs Basophils 0 0-0.2 Laboratory test 09/09/2007 [facility] Erythrocyte Sed 8 MM/HR 0-[address] [place] [address] [phone] Laboratory test 07/25/2007 [facility] TSH 1.88 0.34-5.[address] MIU/[place] [address] [phone] Free Thyroxine 1.01 NG/ML 0.61-1.24 68 Lipid Profile 07/25/2007 [facility] Cholesterol/HDL 5.56 High 1-4.44 (Trig/Chol/HDL) [address] [address] [phone] Cholesterol 228 mg/dL High Less Than 200 69 Triglyceride 307 mg/dL High 40-200 High Density Lipoprotein 41 mg/dL 40-60 70 Low Density Lipoprotein 126 mg/dL High Less Than 100 71 Laboratory test 07/25/2007 [facility] C Reactive < 0.5 Less Than finding [address] Protein mg/dL 0.5 [place] [address] [phone] Comp Metabolic 07/25/2007 [facility] One Over 1.[address] [address] [phone] Anion Gap 5.0 mmol/L 2-11 72 Albumin/Globulin Ratio 1.3 1-3 Albumin 4.1 GM/DL 3.6-5.4 Alkaline Phosphatase 62 U/L 30-110 Alt (SGPT) 20 U/L 14-54 Ast (Sgot) 22 U/L 12-42 BUN 10 mg/dL 6-24 Calcium 9.1 mg/dL 8.7-10.2 Chloride 105 mmol/L 101-111 Co2 (Carbon Dioxide) 25.0 mmol/L 22-32 Globulin 3.2 GM/DL 2-4 Glucose 96 mg/dL 70-105 Potassium 4.8 mmol/L 3.5-5.0 Sodium 135 mmol/L 135-145 Bilirubin Total 0.8 mg/dL 0.4-1.5 Total Protein 7.3 GM/DL 6.2-8.1 BUN/Creatinine Ratio 14.3 8-20 Creatinine 0.7 mg/dL 0.5-1.4 Liver Function 07/25/2007 [facility] Bilirubin Direct 0.1 mg/dL 0.1-0.[address] [place] [address] [phone] Indirect Bilirubin 0.7 mg/dL 0.1-0.75 CBC With Manual Diff 07/25/2007 [facility] RBC Morphology NORMAL [address] [place] [address] [phone] White Blood Count 7.8 CUMM 4.8-10.8 Absolute Neutrophil Count 4.2 Atypical Lymph 3 % 0-6 Band Neutrophil 1 % 0-8 Hematocrit 41 % 35-47 Hemoglobin 14.4 g/dL 12.0-16.0 Lymphocyte 36 % 5-47 Mean Corpuscular HGB Cone 35 g/dL 32-36 Mean Corpuscular Hemoglob 34 pg High 27-31 Mean Corpuscular Volume 96 um3 79-97 Monocyte 7 % 0-13 Mean Platelet Volume 9.2 um3 7.4-10.4 Platelet Count 321 CUMM 150-450 Polysegmented Neutrophil 53 % 38-83 Red Cell Count 4.28 CUMM 4.2-5.4 Redcell Distribution WDTH 15 % 10.5-15 Iron & Iron Binding 07/25/2007 [facility] Iron Total 91 g/dL 28-[address] [place] [address] [phone] Unsaturated Iron Binding 312 g/dL Total Iron Binding Capacity 403 g/dL 250-450 % Iron Saturation 23 % 15-55 Laboratory test 07/25/2007 [facility] Ferritin 53 NG/ML 11.0- [address] [place] [address] [phone] Erythrocyte Sed Rate 12 MM/HR 0-15 Vitamin B12 And 07/25/2007 [facility] Vitamin B12 604 pg/mL 180-[address] [place] [address] [phone] Folic Acid 9.2 NG/ML 2-16 Laboratory 07/04/2007 [facility] Cytology [address] <SEE NOTE> [place] [address] [phone] Stool For 07/04/2007 [employer] [facility] Misc Negative Blood Laboratory 06/17/2007 [facility] Erythrocyte Sed 15 MM/HR 0- [address] 5 [place] [address] [phone] CBC With 06/17/2007 [facility] White Blood 7.5 CUMM 4.[address] Count -10 [place] [address] .8 [phone] Abs Basophils 0 0-0.2 Abs Eosinophils 0.2 0-0.6 Absolute Neutrophil Count 4.3 1.5-7.7 Abs Lymphs 2.6 1.0-4.8 Abs Mononuclear 0.4 0-0.8 Basophil % 0.4 % 0-2 Hematocrit 40 % 35-47 Hemoglobin 13.7 g/dL 12.0-16.0 Eosinophil % 2.6 % 0-6 Gran % 56.7 % 38-83 Lymph % 35.0 % 20-45 Mean Corpuscular HGB Cone 34 g/dL 32-36 Mean Corpuscular Hemoglob 33 pg High 27-31 Mean Corpuscular Volume 96 um3 79-97 Mean Platelet Volume 9.1 um3 7.4-10.4 Mononuclear % 5.3 % 1-9 Platelet Count 365 CUMM 150-450 Red Cell Count 4.16 CUMM Low 4.2-5.4 Redcell Distribution WDTH 15 % 10.5-15 Liver Function 06/17/2007 [facility] Albumin/Globulin Ratio 1.3 1-[address] [place] [address] [phone] Albumin 4.0 GM/DL 3.6-5.4 Alkaline Phosphatase 59 U/L 30-110 Alt (SGPT) 14 U/L 14-54 Ast (Sgot) 20 U/L 12-42 Bilirubin Direct < 0.1 mg/dL Low 0.1-0.5 Globulin 3.2 GM/DL 2-4 Bilirubin Total 0.6 mg/dL 0.4-1.5 Total Protein 7.2 GM/DL 6.2-8.1 Basic Metabolic 06/17/2007 [facility] One Over Creatinine 1.[address] [place] [address] [phone] Anion Gap 5.0 mmol/L 2-11 74 BUN 8 mg/dL 6-24 Calcium 9.4 mg/dL 8.7-10.2 Chloride 108 mmol/L 101-111 Co2 (Carbon Dioxide) 26.0 mmol/L 22-32 Glucose 91 mg/dL 70-105 Potassium 4.8 mmol/L 3.5-5.0 Sodium 139 mmol/L 135-145 BUN/Creatinine Ratio 13.3 8-20 Creatinine 0.6 mg/dL 0.5-1.4 Laboratory test 06/17/2007 [facility] C Reactive < 0.5 mg/dL Less Than finding [address] Protein 0.5 [place] [address] [phone] 1 AA 05/25 2 AA 05/25 3 AA 05/25 4 AA 05/25 5 Because ethnic data is not always readily available, this report includes an eGFR for both -Americans and non- Americans. The National Kidney Disease Education Program (NKDEP) does not endorse the use of the MDRD equation for patients that are not between the ages of 18 and 70, are , have extremes of body size, muscle mass, or nutritional status, or are non- or non-. According to the [employer], irrespective of diagnosis, the stage of the disease is based on the level of kidney function: Stage Description GFR(mL/min/1.73 m(2)) 1 Kidney damage with normal or decreased GFR 90 2 Kidney damage with mild decrease in GFR 60-89 3 Moderate decrease in GFR 30-59 4 Severe decrease in GFR 15-29 5 Kidney failure <15 (or dialysis) 6 Desirable: <150 Borderline High: 150-199 High: 200-499 Very High: >500 7 Desirable: <200 Borderline High: 200-239 High: >239 8 Low: <40 Desirable: 40-60 High: >60 9 Desirable: <100 Near Optimal: 100-129 Borderline High: 130-159 High: 160-189 Very High: >189 10 Because ethnic data is not always readily available, this report includes an eGFR for both -Americans and non- Americans. The National Kidney Disease Education Program (NKDEP) does not endorse the use of the MDRD equation for patients that are not between the ages of 18 and 70, are , have extremes of body size, muscle mass, or nutritional status, or are non- or non-. According to the National Kid[employer], irrespective of diagnosis, the stage of the disease is based on the level of kidney function: Stage Description GFR(mL/min/1.73 m(2)) 1 Kidney damage with normal or decreased GFR 90 2 Kidney damage with mild decrease in GFR 60-89 3 Moderate decrease in GFR 30-59 4 Severe decrease in GFR 15-29 5 Kidney failure <15 (or dialysis) 11 Because ethnic data is not always readily available, this report includes an eGFR for both -Americans and non- Americans. The National Kidney Disease Education Program (NKDEP) does not endorse the use of the MDRD equation for patients that are not between the ages of 18 and 70, are , have extremes of body size, muscle mass, or nutritional status, or are non- or non-. According to the National [employer], irrespective of diagnosis, the stage of the disease is based on the level of kidney function: Stage Description GFR(mL/min/1.73 m(2)) 1 Kidney damage with normal or decreased GFR 90 2 Kidney damage with mild decrease in GFR 60-89 3 Moderate decrease in GFR 30-59 4 Severe decrease in GFR 15-29 5 Kidney failure <15 (or dialysis) 12 positive stool culture for Salmonella 13 Because ethnic data is not always readily available, this report includes an eGFR for both -Americans and non- Americans. The National Kidney Disease Education Program (NKDEP) does not endorse the use of the MDRD equation for patients that are not between the ages of 18 and 70, are , have extremes of body size, muscle mass, or nutritional status, or are non- or non-. According to the National Kidney Foundation, irrespective of diagnosis, the stage of the disease is based on the level of kidney function: Stage Description GFR(mL/min/1.73 m(2)) 1 Kidney damage with normal or decreased GFR 90 2 Kidney damage with mild decrease in GFR 60-89 3 Moderate decrease in GFR 30-59 4 Severe decrease in GFR 15-29 5 Kidney failure <15 (or dialysis) 14 Acute inflammation: >10.00 15 standing order 16 NO PLAIN CUP 17 SEE RESULT BELOW Name: AYSE KIMBLE : [address]: Nehemiah De Leon NP Acct: [id number] Unit: [id number] AGE: 57 Location: LAB Re10/07/17 SEX: F Status: REG REF SPEC: [id number] SPENCER: 10/07/17-1249 [facility] DR: Alexys Hernandez MD REQ: [id number] RECD: 10/07/17 STATUS: COMP _ SOURCE: STOOL SPDESC: ORDERED: Stool Culture COMMENTS: NO PLAIN CUP Verbal to FLORENTIN Noriega by [id number] at 1400 on 10/08/17. Results read back accurately. Submitted to [facility] via [employer] system by [id number] at 1457 on 10/08/17. Procedure Result Reported Site Stool Culture Final 10/09/17- 1418 ML Organism 1 SALMONELLA SPECIES Result No additional pathogens isolated Testing for Salmonella, Shigella, Aeromonas, Plesiomonas, Yersinia and Campylobacter are included in a Stool Culture. Vibrio spp not routinely tested for in a stool culture. If testing is desired, please request specifically when placing test order. Sensitivities not routinely performed on stool isolates, as antibiotics may prolong the carriage rate of bacteria. Please contact the microbiology lab if sensitivities are required. Shiga Toxin 1 2 Final 10/08/17- 1100 ML Organism 1 Negative Shiga Toxin 1 2 CONTINUED ON NEXT PAGE DEPARTMENT OF PATHOLOGY, [address] [place] [address] Sergio Flores M.D. Director [facility] # [id number] Patient: AYSE KIMBLE [id number] (Continued) Specimen: [id number] Collected: 10/07/17-1249 Received: 10/07/17-1255 (Continued) Procedure Result Reported Site Shiga Toxin 1 2 Final (continued) 10/08/17- 1100 Immunochromatographic Assay * - Main Lab . END OF REPORT DEPARTMENT OF PATHOLOGY, [address] [place] [address] eSrgio Flores M.D. Director [facility] # [id number] 18 SEE RESULT BELOW Name: AYSE KIMBLE : [address]: Nehemiah De Leon NP Acct: [id number] Unit: [id number] AGE: 57 Location: LAB Re10/07/17 SEX: F Status: REG REF SPEC: [id number] SPENCER: 10/07/17-[address]: Alexys Hernandez MD REQ: [id number] RECD: 10/07/17-1255 STATUS: COMP _ SOURCE: STOOL SPDESC: ORDERED: Salmonella [place] Procedure Result Reported Site Salmonella Confirmation [facility] Final 10/22/17- 927 ML FINAL IDENTIFICATION Salmonella Non-Typhi 10/21/2017 Major Tests Performed Culture and biochemical analysis: Salmonella Non-Typhi Please continue to submit isolates as required by Laboratory Reporting of Communicable Diseases guidelines. Test Performed by: [address] [address] * ML - Main Lab . END OF REPORT DEPARTMENT OF PATHOLOGY, [address] [place] [address] Sergio Flores M.D. Director [facility] # [id number] 19 FASTING 20 Desirable: <150 Borderline High: 150-199 High: 200-499 Very High: >500 21 Desirable: <200 Borderline High: 200-239 High: >239 22 Low: <40 Desirable: 40-60 High: >60 23 Desirable: <100 Near Optimal: 100-129 Borderline High: 130-159 High: 160-189 Very High: >189 24 Because ethnic data is not always readily available, this report includes an eGFR for both -Americans and non- Americans. The National Kidney Disease Education Program (NKDEP) does not endorse the use of the MDRD equation for patients that are not between the ages of 18 and 70, are , have extremes of body size, muscle mass, or nutritional status, or are non- or non-. According to the National Kidney Foundation, irrespective of diagnosis, the stage of the disease is based on the level of kidney function: Stage Description GFR(mL/min/1.73 m(2)) 1 Kidney damage with normal or decreased GFR 90 2 Kidney damage with mild decrease in GFR 60-89 3 Moderate decrease in GFR 30-59 4 Severe decrease in GFR 15-29 5 Kidney failure <15 (or dialysis) 25 Acute inflammation: >10.00 26 FASTING 27 Because ethnic data is not always readily available, this report includes an eGFR for both -Americans and non- Americans. The National Kidney Disease Education Program (NKDEP) does not endorse the use of the MDRD equation for patients that are not between the ages of 18 and 70, are , have extremes of body size, muscle mass, or nutritional status, or are non- or non-. According to the National Kidney Foundation, irrespective of diagnosis, the stage of the disease is based on the level of kidney function: Stage Description GFR(mL/min/1.73 m(2)) 1 Kidney damage with normal or decreased GFR 90 2 Kidney damage with mild decrease in GFR 60-89 3 Moderate decrease in GFR 30-59 4 Severe decrease in GFR 15-29 5 Kidney failure <15 (or dialysis) 28 Acute inflammation: >10.00 29 STANDING ORDER ENTERED 02/04/17 EXPIRES 07/27/17 NON-FASTING Q 8 WEEKS OR DIRECTED 30 Because ethnic data is not always readily available, this report includes an eGFR for both -Americans and non- Americans. The National Kidney Disease Education Program (NKDEP) does not endorse the use of the MDRD equation for patients that are not between the ages of 18 and 70, are , have extremes of body size, muscle mass, or nutritional status, or are non- or non-. According to the National Kidney Foundation, irrespective of diagnosis, the stage of the disease is based on the level of kidney function: Stage Description GFR(mL/min/1.73 m(2)) 1 Kidney damage with normal or decreased GFR 90 2 Kidney damage with mild decrease in GFR 60-89 3 Moderate decrease in GFR 30-59 4 Severe decrease in GFR 15-29 5 Kidney failure <15 (or dialysis) 31 Acute inflammation: >10.00 32 Because ethnic data is not always readily available, this report includes an eGFR for both -Americans and non- Americans. The National Kidney Disease Education Program (NKDEP) does not endorse the use of the MDRD equation for patients that are not between the ages of 18 and 70, are , have extremes of body size, muscle mass, or nutritional status, or are non- or non-. According to the National Kidney Foundation, irrespective of diagnosis, the stage of the disease is based on the level of kidney function: Stage Description GFR(mL/min/1.73 m(2)) 1 Kidney damage with normal or decreased GFR 90 2 Kidney damage with mild decrease in GFR 60-89 3 Moderate decrease in GFR 30-59 4 Severe decrease in GFR 15-29 5 Kidney failure <15 (or dialysis) 33 Acute inflammation: >10.00 34 Desirable <150 Borderline high 150-199 High 200-499 Very High >500 35 Desirable <200 Borderline high 200-239 High >239 36 Low <40 Desirable: 40-60 High: >60 37 Desirable: <100 mg/dL Near Optimal: 100-129 mg/dL Borderline High: 130-159 mg/dL High: 160-189 mg/dL Very High: >189 mg/dL 38 S/O ENTERED ON 02/20/2016 EXPIRES 08/20/2016 39 Because ethnic data is not always readily available, this report includes an eGFR for both -Americans and non- Americans. The National Kidney Disease Education Program (NKDEP) does not endorse the use of the MDRD equation for patients that are not between the ages of 18 and 70, are , have extremes of body size, muscle mass, or nutritional status, or are non- or non-. According to the National Kidney Foundation, irrespective of diagnosis, the stage of the disease is based on the level of kidney function: Stage Description GFR(mL/min/1.73 m(2)) 1 Kidney damage with normal or decreased GFR 90 2 Kidney damage with mild decrease in GFR 60-89 3 Moderate decrease in GFR 30-59 4 Severe decrease in GFR 15-29 5 Kidney failure <15 (or dialysis) 40 Acute inflammation: >10.00 41 Acute inflammation: >10.00 42 Standing labs every 2 months 43 Because ethnic data is not always readily available, this report includes an eGFR for both -Americans and non- Americans. The National Kidney Disease Education Program (NKDEP) does not endorse the use of the MDRD equation for patients that are not between the ages of 18 and 70, are , have extremes of body size, muscle mass, or nutritional status, or are non- or non-. According to the National Kidney Foundation, irrespective of diagnosis, the stage of the disease is based on the level of kidney function: Stage Description GFR(mL/min/1.73 m(2)) 1 Kidney damage with normal or decreased GFR 90 2 Kidney damage with mild decrease in GFR 60-89 3 Moderate decrease in GFR 30-59 4 Severe decrease in GFR 15-29 5 Kidney failure <15 (or dialysis) 44 Because ethnic data is not always readily available, this report includes an eGFR for both -Americans and non- Americans. The National Kidney Disease Education Program (NKDEP) does not endorse the use of the MDRD equation for patients that are not between the ages of 18 and 70, are , have extremes of body size, muscle mass, or nutritional status, or are non- or non-. According to the National Kidney Foundation, irrespective of diagnosis, the stage of the disease is based on the level of kidney function: Stage Description GFR(mL/min/1.73 m(2)) 1 Kidney damage with normal or decreased GFR 90 2 Kidney damage with mild decrease in GFR 60-89 3 Moderate decrease in GFR 30-59 4 Severe decrease in GFR 15-29 5 Kidney failure <15 (or dialysis) 45 Acute inflammation: >10.00 46 Please check this week 47 No interferon-gamma response to M. tuberculosis antigens was detected. Infection with M. tuberculosis is unlikely. A negative result alone does not exclude infection with M. tuberculosis. For detailed information regarding test interpretation see: www.[employer]/test-catalog/ Clinical+and+Interpretive/10303 48 Test Performed by: [facility] [address] [address] Glazing Superintendent: Claus Morrow II, M.D., Ph.D. 49 [facility] [id number] 50 Because ethnic data is not always readily available, this report includes an eGFR for both -Americans and non- Americans. The National Kidney Disease Education Program (NKDEP) does not endorse the use of the MDRD equation for patients that are not between the ages of 18 and 70, are , have extremes of body size, muscle mass, or nutritional status, or are non- or non-. According to the National Kidney Foundation, irrespective of diagnosis, the stage of the disease is based on the level of kidney function: Stage Description GFR(mL/min/1.73 m(2)) 1 Kidney damage with normal or decreased GFR 90 2 Kidney damage with mild decrease in GFR 60-89 3 Moderate decrease in GFR 30-59 4 Severe decrease in GFR 15-29 5 Kidney failure <15 (or dialysis) 51 Interferon-gamma response to M. tuberculosis antigens detected, suggesting infection with M. tuberculosis. TB Ag minus Nil results between 0.35 and 1.11 IU/mL in patients at low-risk for tuberculosis should be interpreted with caution and repeat testing on a new sample should be considered. False positive results may occur in patients with prior infection with M. marinum, M. szulgai or M. kansasii. For detailed information regarding test interpretation see: www.[employer]/test-catalog/ Clinical+and+Interpretive/42385 52 Test Performed by: [facility] [employer] - [address] [address] Glazing Superintendent: Claus Morrow II, M.D., Ph.D. 53 Acute inflammation: >10.00 54 REFERENCE VALUE <20.0 (Negative) Test Performed by: [place] [address] Glazing Superintendent: Claus Morrow II, M.D., Ph.D. 55 Please check this week please 56 Test Performed by: [place] [address] Glazing Superintendent: Claus Morrow II, M.D., Ph.D. 57 REFERENCE VALUE <=1.0 (Negative) Test Performed by: [place] [address] Glazing Superintendent: Claus Morrow II, M.D., Ph.D. 58 CHOLESTEROL INTERPRETATION: Desirable: Less than 200 MG/DL Borderline-High Risk: 200-239 MG/DL High-Risk: 240 MG/DL and over 59 HDL INTERPRETATION: Undesirable: High Risk: Less than 40 MG/DL Desirable: Low Risk: Greater than 60 MG/DL 60 UNABLE TO CALCULATE LDL TRIGLYCERIDE IS > 400 61 Anion gap measurement may be of limited value in the presence of any alkalosis, especially in a combined acid base disorder. . 62 Note change in reference range as of 12/15/07. The change was based on recommendations from the [place] [employer]. 63 Please note change in reference range effective 07 . 64 Because ethnic data is not always readily available, this report includes an eGFR for both -Americans and non- Americans. The National Kidney Disease Education Program (NKDEP) does not endorse the use of the MDRD equation for patients that are not between the ages of 18 and 70, are , have extremes of body size, muscle mass, or nutritional status, or are non- or non-. According to the National Kidney Foundation, irrespective of diagnosis, the stage of the disease is based on the level of kidney function: Stage Description GFR(mL/min/1.73 m(2)) 1 Kidney damage with normal or decreased GFR 90 2 Kidney damage with mild decrease in GFR 60-89 3 Moderate decrease in GFR 30-59 4 Severe decrease in GFR 15-29 5 Kidney failure <15 (or dialysis) 65 Anion gap measurement may be of limited value in the presence of any alkalosis, especially in a combined acid base disorder. . 66 Please note change in reference range effective 07 . 67 Anion gap measurement may be of limited value in the presence of any alkalosis, especially in a combined acid base disorder. . 68 PLEASE NOTE NEW REFERENCE RANGES. 69 CHOLESTEROL INTERPRETATION: Desirable: Less than 200 MG/DL Borderline-High Risk: 200-239 MG/DL High-Risk: 240 MG/DL and over 70 HDL INTERPRETATION: Undesirable: High Risk: Less than 40 MG/DL Desirable: Low Risk: Greater than 60 MG/DL 71 LDL INTERPRETATION: Low Risk Optimal Level: LDL Less than 100 MG/DL Near or Above Optimal: LDL 100-129 MG/DL Borderline High Risk: LDL 130-159 MG/DL High Risk: LDL 160-189 MG/DL Very High Risk: LDL Greater than 189 MG/DL 72 Anion gap measurement may be of limited value in the presence of any alkalosis, especially in a combined acid base disorder. . 73 ---- RUN DATE: 07/07/07 [facility] NMI LIVE PAGE 1 RUN TIME: 1253 Specimen Inquiry RUN USER: INTERFACE [id number] AYSE KIMBLE 47/F <REG REF 07/03> ([id number]) RSP Chasity Frederick -- Specimen: [id number] SOUT Spec Date: 07/04/[address]: Chasity LYNN Spec Type: CYTOLOGY Received: 07/06/07-1129 Copies to: SOURCE ECTOCERVICAL/ENDOCERVICAL Thin Prep with Reflex HPV Test PATIENT INFORMATION ACTUAL COLLECTION DATE: 07/04/07 ADEQUACY OF SPECIMEN Satisfactory for evaluation * Transformation zone component identified * DIAGNOSIS NEGATIVE FOR INTRAEPITHELIAL LESION OR MALIGNANCY * This Pap test was evaluated with the assistance of the ThinPrep Pap Test Imaging System. However, due to technical or cytologic issues, the imaging could not be completed. Comprehensive manual rescreening by a Land Acquisition Analyst was performed. The Pap Smear is a screening test designed to aid in the detection of premalign ant and malignant conditions of the uterine cervix. It is not a diagnostic procedure a nd should not be used as the sole means of detecting cervical cancer. Both false- positive and false-negative reports do occur. Depending on your risk status, a Pap smear thania uld be obtained and evaluated every one to three years. Final Interpretation electronically signed by: Becky HOSKINS(ASCP) 07/07/07 1253 -- -- DEPARTMENT OF PATHOLOGY, [address] [place] [id number] [facility] Permit #[id number] Sergio Flores M.D. Director of Laboratories -- 74 Anion gap measurement may be of limited value in the presence of any alkalosis, especially in a combined acid base disorder. . 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 due to other [address] specified organisms E78.2 Mixed hyperlipidemia Z12.31 Encntr screen mammogram for malignant neoplasm of breast K21.9 Gastro-esophageal reflux disease without esophagitis Office Visit 08/03/2017 1:30p Rheumatology Zsofia M06.09 [facility] arthritis w/o rheumatoid factor, multiple sites I10 Essential (primary) hypertension E78.2 Mixed hyperlipidemia F17.210 Nicotine dependence, cigarettes, uncomplicated Z79.899 Other termite control representative (current) drug therapy K21.9 Gastro-esophageal reflux disease without esophagitis Z79.891 terminal clerk (current) use of opiate analgesic Office Visit 05/04/2017 1:00p Rheumatology Zsofia M06.09 [facility] arthritis w/o rheumatoid factor, multiple sites J30.9 Allergic rhinitis, unspecified F17.210 Nicotine dependence, cigarettes, uncomplicated Z79.899 Other termite control representative (current) drug therapy H02.826 Cysts of left eye, unspecified eyelid H92.03 Otalgia, bilateral Office Visit 03/04/2017 [facility] Alexys E78.2 Mixed hyperlipidemia 2:00p Hugo Hernandez M.D. [address] Z00.01 Encounter for general adult medical exam w abnormal findings I10 Essential (primary) hypertension M54.2 Cervicalgia Office Visit 01/26/2017 1:00p Rheumatology Zsofia M06.09 [facility] arthritis w/o rheumatoid factor, multiple sites I10 Essential (primary) hypertension E78.5 Hyperlipidemia, unspecified F17.210 Nicotine dependence, cigarettes, uncomplicated K21.9 Gastro-esophageal reflux disease without esophagitis Z79.899 Other assisted (current) drug therapy Z23 Encounter for immunization Office Visit 10/06/2016 1:00p Rheumatology Zsofia M06.09 [facility] arthritis w/o rheumatoid factor, multiple sites F17.210 Nicotine dependence, cigarettes, uncomplicated I10 Essential (primary) hypertension Z13.220 Encounter for screening for lipoid disorders M54.2 Cervicalgia F11.90 Opioid use, unspecified, uncomplicated Z79.899 Other termite control representative (current) drug therapy Office Visit 06/30/2016 1:00p Rheumatology Zsofia M06.09 [facility] arthritis w/o rheumatoid factor, multiple sites M54.2 Cervicalgia Z79.899 Other assisted (current) drug therapy F17.210 Nicotine dependence, cigarettes, uncomplicated R03.0 Elevated blood-pressure reading, w/o diagnosis of htn Office Visit 03/10/2016 1:00p Rheumatology Zsofiizabela M06.09 Rheumatoid [facility] Of MALI[facility] Mcneil arthritis w/o rheumatoid factor, multiple sites Z79.899 Other termite control representative (current) drug therapy F17.210 Nicotine dependence, cigarettes, uncomplicated Z23 Encounter for immunization M17.0 Bilateral primary osteoarthritis of knee Office Visit 01/06/2016 1:00p Rheumatology James M06.09 Rheumatoid Services Of Faiza Lopez M.D. arthritis w/o rheumatoid factor, multiple sites Z79.899 Other assisted (current) drug therapy M25.561 Pain in right knee M25.562 Pain in left knee M25.571 Pain in right ankle and joints of right foot M25.572 Pain in left ankle and joints of left foot F17.210 Nicotine dependence, cigarettes, uncomplicated M79.1 Myalgia M17.0 Bilateral primary osteoarthritis of knee Z78.0 Asymptomatic menopausal state Office Visit 11/07/2015 [facility] Tk Lofton R76.12 Nonspec reaction 1:20p Infectious Gareth Olivares to gamma intrfrn Diseases respns w/o actv tubrclosis Office Visit 11/07/2015 Rheumatology James Lopez M06.09 Rheumatoid 1:00p Services Of Faiza Servin arthritis w/o rheumatoid factor, multiple sites Z79.899 Other termite control representative (current) drug therapy M79.1 Myalgia M17.0 Bilateral primary osteoarthritis of knee Z78.0 Asymptomatic menopausal state F17.210 Nicotine dependence, cigarettes, uncomplicated M25.551 Pain in right hip Office Visit 10/16/2015 1:00p Rheumatology James M06.Jordan Rheumatoid [facility] Of Faiza Lopez M.D. arthritis w/o rheumatoid factor, multiple sites Z79.899 Other termite control representative (current) drug therapy M79.1 Myalgia M17.0 Bilateral primary osteoarthritis of knee Z23 Encounter for immunization F17.210 Nicotine dependence, cigarettes, uncomplicated Office Visit 11/26/2009 DO Not Use Operator [employer] Alexys 272.2 Hyperlipidemia Mixed 9:00a AT Ermelinda Hernandez M.D. V70.0 Examination General Medical Routine AT [facility] Care [facility] 493.00 Asthma Extrinsic Unspecified 530.81 Esophageal Reflux 780.52 Insomnia Unspecified 790.6 Abnormal Blood Chemistry Other V76.9 Screening Malignant Neoplasm Unspec 555.2 Enteritis Small Intestine W/ Large Intestine 305.1 Tobacco Use Disorder 714.0 Rheumatoid Arthritis Office Visit 04/02/2008 11:00a DO Not Use Operator [employer] Chasity Mack PA 785.6 Lymph Nodes AT [facility] Enlargement Office Visit 03/21/2008 1:00p DO Not Use Operator [employer] Chasity Mack PA 959.5 Injury Finger AT [facility] Other & Unspec 719.45 Pain Joint Pelvic Region & Thigh 493.00 Asthma Extrinsic Unspecified 530.81 Esophageal Reflux 309.0 Adjustment Disorder With Depression Office Visit 07/04/2007 3:00p DO Not Use Operator [employer] Chasity Mack PA 780.52 Insomnia AT [facility] Unspecified 578.9 Hemorrhage Gastrointestinal Tract Unspec 780.79 Malaise And Fatigue Other V78.1 Screening Deficiency Anemia Other & Unspec V77.91 Screening For Lipoid Disorders 620.2 Ovarian Cyst Other & Unspec 493.00 Asthma Extrinsic Unspecified V76.2 Screening Malignant Neoplasm Cervix 787.91 Diarrhea Plan of Treatment Future Appointment(s):05/13/2018 1:15 pm - Kirstin Blum M.D. at [facility]07/12/2018 1:00 pm - MALIHA Araujo at [facility]umatology [facility]04/28/2018 11:30 am - Kirstin Blum M.D. at [facility].A.06/14/2018 1:00 pm - MALIHA Araujo at [facility]04/13/2018 - Kirstin Blum M.D.M25.561 Pain in right kneeFollow up:Follow up : 2 weeks after lcrlwgyK60.461 Effusion, right kneeM17.11 Unilateral primary osteoarthritis, right knee
--- OUTSIDE RECORDS SUMMARY | 2018-04-28 08:21 | XMS REPORT | Continuity of Care Document ---
:1960 External Reference #:[id number] Author Name Jannie Thapa Care Team Providers Name Role Phone Alexys Hernandez MD Primary Care Physician Unavailable Payers Type Date Identification Numbers Payment Provider Subscriber Policy Number: [id number] Medicare Ayse Kimble PayID: [id number] [address] [place] [address] Expires: 2015 Policy Number: [id number] Medicaid Ayse Kimble Group Name: 1 1 [address] PayID: [id number] [place] [address] Expires: 2008 Policy Number: [id number] Medicaid Ayse Kimble Group Name: 1 1 [address] PayID: [id number] [place] [address] Advance Directives Description No Information Available Problems [...] Date Description Comments Sex Unknown 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 - My Note Cigarette Use Pack Years [...] 1 by I10 Zsofia 18 mouth Moises, [employer]IST every day Methotrexate 05/04/19 Active Tablets 2.5mg 36tabs 3 tbs by M06.09 Zsofia 18 mouth Moises, [employer]IST every week Z79.899 Proair HFA 01/26/2017 Active Aerosol 108(90Base) 8.5units 2 puffs Zsofia mcg/Act by mouth Moises, every 4 [employer]IST hours as needed Atorvastatin 01/26/2017 Active Tablets 20mg 90tabs take one E Zsofia Calcium tablet by 7 Moises, mouth 8 [employer] every day . 5 Omeprazole 01/26/2017 Active Capsules 20mg 90caps Take One K Zsofia DR Capsule 2 Moises, By Mouth 1 [employer]IST Every Day . 9 Cyclobenzaprine 12/15/2016 Active Tablets 5mg 30tabs take one [place] HCL tablet by Pacharmin mouth at a, M.D. bedtime as needed for back pain Ibu 06/30/2016 Active Tablets 600mg 60tabs take one M Zsofia tablet by 0 Moises, mouth 6 [employer] twice a . day as 0 needed 9 only Hydrocodone-Aceta 11/20/2015 Active Tablets 5-325mg 30tabs take one Z Zsofia minophen tablet by 7 Moises, mouth 9 [employer] daily as . needed 8 for pain 9 1 M54.5 Folic Acid 10/23/2015 Active Tablets 1mg 90tabs take one M06.09 Zsofia capsule/tablet Moises, [employer]IST daily by mouth Z79.899 Enbrel 10/16/2015 Active Solution 50mg/ml 3.92units Inject Z79.899 James Judie Auto-Inject 50MG John, Under M.D. The Skin Every Week M06.09 Aspir-Low Active Tablets DR 81mg 1 by mouth Unknown every day Mucinex 01/27/2018 - Hx Tablets ER 600mg 14t 1 by mouth Zsofia 04/12/2018 12HR abs twice a day Moises, [employer]IST Benzonatate 01/27/2018 - Hx Capsules 100mg 14c take 1 tab Zsofia 04/12/2018 aps by mouth two Moises, times a day [employer] as needed for cough Azithromycin 12/21/2017 - Hx Tablets 250mg 6ta 2 tab today J02 Alexys 04/12/2018 bs and then .8 David, 1tab daily M.DSandip Cipro 10/12/2017 - Hx Tablets 500mg 20t twice a day Alexys 10/22/2017 abs Gareth Hernandez Fluticasone 05/04/2017 - Hx Suspension 50mcg/A 16g 1 act each J30 Zsofia Propionate 04/12/2018 ct m nostril .9 Moises, twice daily [employer] Lisinopril 07/02/2016 - Hx Tablets 5mg 90t take 1/2 I10 [place] 08/03/2017 abs tablet by delfina Hernandez every M.D. day Tizanidine HCL 05/12/2016 - Hx Tablets 2mg 30t take one tab Zsofia 03/04/2017 abs at bedtime Moises, every day, [employer]IST may increase to 2 tabs at bedtime as needed Tizanidine HCL 05/08/2016 - Hx Capsules 2mg 30c take one tab Zsofia 05/12/2016 aps at bedtime Moises, every day, [employer]IST may increase to 2 tabs at bedtime as needed Skelaxin 05/07/2016 - Hx Tablets 800mg 30t take 1 tab Zsofia 05/08/2016 abs by mouth tid Moises, as needed [employer] for back pain Medrol 10/23/2015 - Hx TBPK 4mg 21u take as James 11/07/2015 nit directed ernst Lopez M.D. finished as a medrol dose pack Methotrexate 10/23/2015 - Hx Tablets 2.5mg 48t take 4 M06 Zsofia 05/04/2017 abs tablets by .09 Moises, mouth once [employer]IST weekly on Z79.899 Hydrocodone 10/16/2015 Hx Tablets 5-300mg 60tabs take one M06.09 James Bitartrate/Acetaminophen - capsule/tablet John, 10/16/2015 by mouth twice M.D. daily as needed for pain Naproxen 10/16/2015 Hx Tablets 500mg 180tabs take one M06.09 Zsofia - capsule/tablet Moises, 06/30/2016 daily by mouth [employer]IST as needed for severe pain, avoid with [...] 780.52 [facility]ys [facility]/16/2015 hs prn insomnia Gareth gurrola Omeprazole 06/27/2007 Hx CPDR 20mg 60units take 1 tablet 2 Blake-Ramila - times daily l D. 10/16/2015 Roz Lopez.,FAC P Albuterol Hx Aers 90mcg/Ac 1units inhale 2 puffs [place] - t by mouth four Pachikar 01/26/2017 times a day if Roz gurrola. needed Escitalopram Oxalate Hx Tablets 20mg 1 by mouth Unknown - every day 10/26/2016 Ibuprofen Hx Tablets 600mg 1 by mouth M06.09 Unknown - three times a 10/16/2015 day as needed Ibuprofen Hx Tablets 600mg 30tabs 1 tab by mouth Zsofia - every 4 to 6 Moises, 10/06/2016 hours as needed [employer]IST for pain Brenda-Chelsea Plus Cold & Hx Capsules 5-2-10-3 Unknown Cough - 25mg 04/12/2018 Nyquil Severe Cold/Flu Hx Liquid 5-6.25-1 Unknown - 0-325mg/ 04/12/2018 15ML Immunizations CPT Code Status Date Vaccine Reaction Lot # [id number] Given 04/12/2018 Influenza Virus Vaccine, no immediate reaction [id number] Quadrivalent, Split, noted Preservative Free [id number] Given 01/04/2018 Pneumococcal Conjugate no immediate reaction [id number] Vaccine 13 Valent For noted Intramuscular Use 33932 Given 01/26/2017 Influenza Virus Vaccine, [id number] Quadrivalent, Split, Preservative Free 76325 Given 03/10/2016 Influenza Virus Vaccine, [id number] Quadrivalent, Split Virus, Im Use 79312 Given 10/16/2015 Pneumonia Vaccine No reaction noted [id number] 58245 Given 02/26/2009 Influenza Virus Vaccine, [id number] Pandemic Formulation Vital Signs Date Vital Result [...] Test Result H/L Range Note Laboratory test [facility] TSH (Thyroid Stim 1.96 N 0.34-5.[address] Horm) mcIU/[place] [address] [phone] Lipid Profile [facility] Triglycerides 311 mg/dL 1 (Trig/Chol/HDL) [address] [place] [address] [phone] Cholesterol 207 mg/dL 2 HDL Cholesterol 43.4 mg/dL 3 LDL Cholesterol 101 mg/dL 4 Comp Metabolic Panel 01/04/2018 [facility] Sodium 137 mmol/L N 135-[address] [place] [address] [phone] Potassium 4.8 mmol/L N 3.5-5.0 Chloride 107 [...] Egfr Non- 119.3 >60 Egfr 144.4 >60 5 Laboratory test 01/04/2018 [facility] C Reactive 8.64 mg/L High <8.[address] [place] [address] [phone] CBC Auto Diff 01/04/2018 [facility] White Blood 7.4 N 3.5- 10.[address] Count 10^3/[place] [address] [phone] Red Blood Count 4.09 10^6/uL N 4.00-5.40 [...] Blood Cells % 0.1 Laboratory test 01/04/2018 [facility] Erythrocyte Sed 31 mm/Hr High 0-[address] [place] [address] [phone] Basic Metabolic 10/12/2017 [facility] Sodium 139 N 135-[address] mmol/[place] [address] [phone] Potassium 4.3 mmol/L N 3.5-5.0 Chloride 104 mmol/L N 101-111 Co2 Carbon Dioxide 24 mmol/L N 22-32 Anion Gap 11 mmol/L N 2-11 Glucose 85 mg/dL N 70-100 Blood Urea Nitrogen 11 mg/dL N 6-24 Creatinine 0.57 mg/dL N 0.51-0.95 BUN/Creatinine Ratio 19.3 N 8-20 Calcium 9.7 mg/dL N 8.6-10.3 Egfr Non- 109.7 >60 Egfr 141.1 >60 6 CBC Auto Diff 10/07/2017 [facility] White Blood 7.2 10^3/uL N 3.5-10.[address] [place] [address] [phone] Red Blood Count 4.21 10^6/uL N 4.00-5.40 [...] Cells % 0.1 Comp Metabolic Panel 10/07/2017 [facility] Sodium 136 mmol/L Low 139-[address] [place] [address] [phone] Potassium 4.1 mmol/L N 3.5-5.0 Chloride 103 [...] Egfr Non- 107.5 >60 Egfr 138.3 >60 8 Laboratory test 10/07/2017 [facility] C Reactive 30.96 mg/L High < 5.00 [address] [place] [address] [phone] Erythrocyte Sed Rate 34 mm/Hr High 0-30 10 Laboratory test 10/07/2017 [facility] Stool Culture SEE RESULT 11, [address] [place] [address] [phone] Sal[facility] Confirmation [facility] SEE RESULT BELOW 13 Lipid Profile 07/31/2017 [facility] Triglycerides 213 mg/dL 14, 15 (Trig/Chol/HDL) [address] [place], [place] [phone] Cholesterol 180 mg/dL 16 HDL Cholesterol 50.7 mg/dL 17 LDL Cholesterol 87 mg/dL 18 Comp Metabolic Panel 07/31/2017 [facility] Sodium 138 mmol/L Low 139-[address] [place] [address] [phone] Potassium 4.2 mmol/L N 3.5-5.0 Chloride 105 [...] Egfr Non- 107.5 >60 Egfr 138.3 >60 19 Laboratory test 07/31/2017 [facility] C Reactive 2.19 mg/L N < 5.00 [address] [place] [address] [phone] TSH (Thyroid Stim Horm) 2.09 mcIU/mL N 0.34-5.60 21 CBC Auto Diff 05/04/2017 [facility] White Blood 8.0 10^3/uL N 3.5-10.[address] [place] [address] [phone] Red Blood Count 4.01 10^6/uL N 4.0-5.4 [...] Cells % 0.1 Comp Metabolic Panel 05/04/2017 [facility] Sodium 135 mmol/L N 133-145 [address] [place] [address] [phone] Potassium 4.3 mmol/L N 3.5-5.0 Chloride 103 [...] Egfr Non- 119.3 >60 Egfr 153.5 >60 22 Laboratory test 05/04/2017 [facility] C Reactive 12.39 mg/L High < 5.00 23 finding [address] [place] [address] [phone] Erythrocyte Sed Rate 29 mm/Hr N 0-30 24 Comp Metabolic Panel 01/26/2017 [facility] Sodium 136 mmol/L N 133-145 [address] [place] [address] [phone] Potassium 4.0 mmol/L N 3.5-5.0 Chloride 104 [...] 105.8 N >60 Egfr 136.1 N >60 25 Laboratory test 01/26/2017 [facility] C Reactive 3.24 mg/L N < 5.00 [address] [place] [address] [phone] CBC Auto Diff 01/26/2017 [facility] White Blood 8.3 N 3.5- 10.[address] Count 10^3/[place] [address] [phone] Red Blood Count 4.29 10^6/uL N 4.0-5.4 [...] Cells % 0.1 N Laboratory test 01/26/2017 [facility] Erythrocyte Sed 19 mm/Hr N 0-[address] [place] [address] [phone] CBC Auto Diff 11/16/2016 [facility] White Blood 6.1 N 3.5- 10.[address] Count 10^3/[place] [address] [phone] Red Blood Count 4.33 10^6/uL N 4.0-5.4 [...] % 0 N Comp Metabolic Panel 11/16/2016 [facility] Sodium 135 mmol/L N 133-[address] [place] [address] [phone] Potassium 4.3 mmol/L N 3.5-5.0 Chloride 105 [...] 119.8 N >60 Egfr 154.0 N >60 27 Laboratory test 11/16/2016 [facility] C Reactive 4.63 mg/L N < 5.00 [address] [place] [address] [phone] Erythrocyte Sed Rate 17 mm/Hr N 0-30 Lipid Profile 11/16/2016 [facility] Triglycerides 370 mg/dL N 29 (Trig/Chol/HDL) [address] [place] [address] [phone] Cholesterol 253 mg/dL N 30 HDL Cholesterol 41.7 mg/dL N 31 LDL Cholesterol 137 mg/dL N 32 CBC Auto Diff 06/23/2016 [facility] White Blood 8.4 10^3/uL N 3.5-10.[address] [place] [address] [phone] Red Blood Count 4.49 10^6/uL N 4.0-5.4 [...] Cells % 0 N Laboratory test 06/23/2016 [facility] Erythrocyte Sed 15 mm/Hr N 0-[address] [place] [address] [phone] Comp Metabolic 06/23/2016 [facility] Sodium 137 mmol/L N 133- [address] [place] [address] [phone] Chloride 104 mmol/L N 101-111 Co2 Carbon [...] 94.6 N >60 Egfr 121.7 N >60 34 Potassium 5.0 mmol/L N 3.5-5.0 Anion Gap 9 mmol/L N 2-11 Ast 24 U/L N 13-39 Laboratory test 06/23/2016 [facility] C Reactive 2.55 mg/L N < 5.[address] [place] [address] [phone] Laboratory test 02/19/2016 [facility] C Reactive 2.91 mg/L N < 5.[address] [place] [address] [phone] Erythrocyte Sed Rate 14 mm/Hr N 0-30 37 Comp Metabolic Panel 02/19/2016 [facility] Sodium 137 mmol/L N 133-[address] [place] [address] [phone] Potassium 4.3 mmol/L N 3.5-5.0 Chloride 103 [...] 128.6 N >60 Egfr 165.4 N >60 38 CBC Auto Diff 02/19/2016 [facility] White Blood 8.3 10^3/uL N 3.5-10.[address] [place] [address] [phone] Red Blood Count 4.37 10^6/uL N 4.0-5.4 [...] Nucleated Red Blood Cells % 0.1 N Liver Function 11/20/2015 [facility] Total Protein 6.7 g/dL N 6.4-8.[address] [place] [address] [phone] Albumin 3.9 g/dL N 3.2-5.2 Globulin 2.8 g/dL N 2-4 Albumin/Globulin Ratio 1.4 N 1-3 Total Bilirubin 0.30 mg/dL N 0.2-1.0 Direct Bilirubin 0.10 mg/dL N 0.03-0.18 Indirect Bilirubin 0.2 mg/dL Low 0.3-1.0 Alkaline Phosphatase 84 U/L N 34-104 Alt 11 U/L N 7-52 Ast 15 U/L N 13-39 Quantiferon Gold 11/20/2015 [facility] M tuberculosis Negative N Negative [address] [place] [address] [phone] TB Ag minus Nil Result 0 IU/mL N TB Mitogen minus Nil Result > 10.00 IU/mL N TB Nil Result 0.04 IU/mL N 40 Laboratory test 11/20/2015 [facility] C Reactive 5.22 mg/L High < 5.00 [address] [place] [address] [phone] Erythrocyte Sed Rate 17 mm/Hr N 0-30 42 CBC Auto Diff 11/20/2015 [facility] White Blood 7.8 10^3/uL N 3.5-10.[address] [place] [address] [phone] Red Blood Count 4.02 10^6/uL N 4.0-5.4 [...] % 0.1 N Comp Metabolic Panel 11/20/2015 [facility] Sodium 136 mmol/L N 133-145 [address] [place] [address] [phone] Potassium 4.3 mmol/L N 3.5-5.0 Chloride 105 [...] 120.2 N >60 Egfr 154.6 N >60 43 CMP Panel 10/25/2015 [facility] Sodium 140 mmol/L N 133-[address] [place] [address] [phone] Potassium 4.8 mmol/L N 3.5-5.0 Chloride 103 [...] 91.7 N >60 Egfr 118.0 N >60 45 Quantiferon Gold 10/22/2015 [facility] M tuberculosis Positive N Negative [address] [place] [address] [phone] TB Ag minus Nil Result 0.65 IU/mL N TB Mitogen minus Nil Result 13.27 IU/mL N TB Nil Result 0.04 IU/mL N 47 Laboratory test 10/22/2015 [facility] C Reactive 8.51 mg/L High < 5.00 [address] [place] [address] [phone] Cyclic Citrullinated Pep Igg <15.6 U N 49 Erythrocyte Sed Rate 18 mm/Hr N 0-30 50 Rheumatoid Factor <15 IU/mL N <15 51 CBC Auto Diff 10/22/2015 [facility] White Blood 8.5 10^3/uL N 3.5-10.[address] [place] [address] [phone] Red Blood Count 4.22 10^6/uL N 4.0-5.4 [...] Cells % 0.1 N Laboratory test 10/22/2015 [facility] Anti Nuclear 0.9 U N [address] [place] [address] [phone] Laboratory test 11/26/2009 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 Hemoglobin A1c 5.7 5-7 finding Lipid Profile 11/22/2009 [facility] Triglyceride 426 High 40- 20 (Trig/Chol/HDL) [address] mg/dL 0 [place] [address] [phone] Cholesterol 251 mg/dL High Less Than 200 53 High Density Lipoprotein 36 mg/dL Low 40-60 54 Cholesterol/HDL Ratio 6.97 AVERAGE High 1-4.44 Low Density Lipoprotein (SEE NOTE) mg/dL Less Than 100 55 Basic Metabolic Panel 11/22/2009 [facility] Sodium 139 mmol/L 135-[address] [place] [address] [phone] Potassium 4.5 mmol/L 3.5-5.0 Chloride 106 mmol/L 101-111 Co2 (Carbon Dioxide) 25.0 mmol/L 22-32 Anion Gap 8.0 mmol/L 2-11 56 Glucose 106 mg/dL High 70-100 57 BUN 9 mg/dL 6-24 Creatinine 0.60 mg/dL 0.50-1.40 One Over Creatinine 1.60 BUN/Creatinine Ratio 15.0 8-20 Calcium 9.4 mg/dL 8.1-9.9 58 eGFR Non- 113.4 > 60 eGFR 137.2 > 60 59 Laboratory test 11/16/2007 [facility] Erythrocyte Sed 1 MM/HR 0-[address] [place] [address] [phone] CBC With 11/16/2007 [facility] White Blood 9.1 CUMM 4.8-10.8 Electronic Diff [address] [place] [address] [phone] Red Cell Count 3.82 CUMM Low 4.2-5.4 [...] Eosinophils 0.2 0-0.6 Abs Basophils 0 0-0.2 Basic Metabolic Panel 10/10/2007 [facility] Sodium 139 mmol/L 135-[address] [place] [address] [phone] Potassium 4.1 mmol/L 3.5-5.0 Chloride 108 mmol/L 101-111 Co2 (Carbon Dioxide) 26.0 mmol/L 22-32 Anion Gap 5.0 mmol/L 2-11 60 Glucose 105 mg/dL 70-105 BUN 14 mg/dL 6-24 Creatinine 0.7 mg/dL 0.5-1.4 One Over Creatinine 1.42 BUN/Creatinine Ratio 20.0 8-20 Calcium 9.6 mg/dL 8.1-9.9 61 Liver Function 10/10/2007 [facility] Total Protein 7.2 GM/DL 6.2-8.[address] [place] [address] [phone] Albumin 4.2 GM/DL 3.6-5.4 Globulin 3.0 GM/DL 2-4 Albumin/Globulin Ratio 1.4 1-3 Bilirubin Total 0.5 mg/dL 0.4-1.5 Bilirubin Direct 0.1 mg/dL 0.1-0.5 Indirect Bilirubin 0.4 mg/dL 0.1-0.75 Alkaline Phosphatase 55 U/L 30-110 Alt (SGPT) 25 U/L 14-54 Ast (Sgot) 25 U/L 12-42 Laboratory test 10/10/2007 [facility] C Reactive < 0.5 mg/dL Less Than finding [address] Protein 0.5 [place], [place] [phone] CBC With 10/10/2007 [facility] White Blood 8.3 CUMM 4.8-10.8 Electronic Diff [address] [place] [address] [phone] Red Cell Count 3.87 CUMM Low 4.2-5.4 [...] Abs Basophils 0 0-0.2 Laboratory test 10/10/2007 [facility] Erythrocyte Sed 10 MM/HR 0-[address] [place] [address] [phone] Basic Metabolic 09/09/2007 [facility] Sodium 141 mmol/L 135- [address] [place] [address] [phone] Potassium 3.8 mmol/L 3.5-5.0 Chloride 108 mmol/L 101-111 Co2 (Carbon Dioxide) 25.0 mmol/L 22-32 Anion Gap 8.0 mmol/L 2-11 62 Glucose 107 mg/dL High 70-105 BUN 10 mg/dL 6-24 Creatinine 0.7 mg/dL 0.5-1.4 One Over Creatinine 1.42 BUN/Creatinine Ratio 14.3 8-20 Calcium 9.4 mg/dL 8.7-10.2 Liver Function 09/09/2007 [facility] Total Protein 7.1 GM/DL 6.2-8.[address] [place] [address] [phone] Albumin 4.2 GM/DL 3.6-5.4 Globulin 2.9 GM/DL 2-4 Albumin/Globulin Ratio 1.4 1-3 Bilirubin Total 0.5 mg/dL 0.4-1.5 Bilirubin Direct < 0.1 mg/dL Low 0.1-0.5 Alkaline Phosphatase 61 U/L 30-110 Alt (SGPT) 17 U/L 14-54 Ast (Sgot) 20 U/L 12-42 Laboratory test 09/09/2007 [facility] C Reactive < 0.5 Less Than finding [address] Protein mg/dL 0.5 [place] [address] [phone] CBC With 09/09/2007 [facility] White Blood 11.6 CUMM High 4.8- 10.8 Electronic Diff [address] [place] [address] [phone] Red Cell Count 4.00 CUMM Low 4.2-5.4 [...] Abs Basophils 0 0-0.2 Laboratory test 09/09/2007 [facility] Erythrocyte Sed 8 MM/HR 0-[address] [place] [address] [phone] Iron & Iron 07/25/2007 [facility] Iron Total 91 g/dL 28- 170 Binding Capacity [address] [place] [address] [phone] Unsaturated Iron Binding 312 g/dL Total Iron Binding Capacity 403 g/dL 250-450 % Iron Saturation 23 % 15-55 CBC With Manual Diff 07/25/2007 [facility] RBC Morphology NORMAL [address] [place] [address] [phone] White Blood Count 7.8 CUMM 4.8-10.8 Absolute [...] 4.2-5.4 Redcell Distribution WDTH 15 % 10.5-15 Lipid Profile 07/25/2007 [facility] Cholesterol/HDL 5.56 High 1-4.44 (Trig/Chol/HDL) [address] [place] [address] [phone] Cholesterol 228 mg/dL High Less Than 200 63 Triglyceride 307 mg/dL High 40-200 High Density Lipoprotein 41 mg/dL 40-60 64 Low Density Lipoprotein 126 mg/dL High Less Than 100 65 Laboratory test 07/25/2007 [facility] C Reactive < 0.5 Less Than finding [address] Protein mg/dL 0.5 [place], [place] [phone] Comp Metabolic 07/25/2007 [facility] One Over 1.[address] [place] [address] [phone] Anion Gap 5.0 mmol/L 2-11 66 Albumin/Globulin Ratio 1.3 1-3 Albumin 4.1 GM/DL [...] Creatinine 0.7 mg/dL 0.5-1.4 Liver Function 07/25/2007 [facility] Bilirubin Direct 0.1 mg/dL 0.1-0.[address] [place] [address] [phone] Indirect Bilirubin 0.7 mg/dL 0.1-0.75 Laboratory test 07/25/2007 [facility] Ferritin 53 NG/ML 11.0- [address] [place] [address] [phone] Erythrocyte Sed Rate 12 MM/HR 0-15 Vitamin B12 And 07/25/2007 [facility] Vitamin B12 604 pg/mL 180-914 Folate Serum [address] [place] [address] [phone] Folic Acid 9.2 NG/ML 2-16 Laboratory test 07/25/2007 [facility] TSH 1.88 MIU/ML 0.34- 5.[address] [place] [phone] Free Thyroxine 1.01 NG/ML 0.61-1.24 67 Laboratory 07/04/2007 [facility] Cytology 68 test finding [address] [place] [address] <SEE NOTE> [place] [address] [phone] Stool For 07/04/2007 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 Misc Negative Blood Laboratory 06/17/2007 [facility] C Reactive < 0.5 mg/dL Less test finding [address] [place] [address] [place] [address] [phone] Basic 06/17/2007 [facility] One Over 1.[address] [place] [address] [phone] Anion Gap 5.0 mmol/L 2-11 69 BUN 8 mg/dL 6-24 Calcium 9.4 mg/dL 8.7-10.2 Chloride 108 mmol/L 101-111 Co2 (Carbon Dioxide) 26.0 mmol/L 22-32 Glucose 91 mg/dL 70-105 Potassium 4.8 mmol/L 3.5-5.0 Sodium 139 mmol/L 135-145 BUN/Creatinine Ratio 13.3 8-20 Creatinine 0.6 mg/dL 0.5-1.4 Liver Function 06/17/2007 [facility] Albumin/Globulin Ratio 1.3 1-[address] [place] [address] [phone] Albumin 4.0 GM/DL 3.6-5.4 Alkaline Phosphatase 59 U/L 30-110 Alt (SGPT) 14 U/L 14-54 Ast (Sgot) 20 U/L 12-42 Bilirubin Direct < 0.1 mg/dL Low 0.1-0.5 Globulin 3.2 GM/DL 2-4 Bilirubin Total 0.6 mg/dL 0.4-1.5 Total Protein 7.2 GM/DL 6.2-8.1 CBC With 06/17/2007 [facility] White Blood 7.5 CUMM 4.8-10.8 Electronic Diff [address] [place] [address] [phone] Abs Basophils 0 0-0.2 Abs Eosinophils 0.2 [...] 4.2-5.4 Redcell Distribution WDTH 15 % 10.5-15 Laboratory test 06/17/2007 [facility] Erythrocyte Sed 15 MM/HR 0-[address] [place] [address] [phone] Desirable: <150 Borderline High: 150-199 High: 200-499 Very High: >500 2 Desirable: <200 Borderline High: 200-239 High: >239 3 Low: <40 Desirable: 40-60 High: >60 4 Desirable: <100 Near Optimal: 100-129 Borderline High: 130-159 High: 160-189 Very High: >189 5 Because ethnic data is not always [...] 5 Kidney failure <15 (or dialysis) 6 Because ethnic data is not always readily [...] 15-29 5 Kidney failure <15 (or dialysis) 7 positive stool culture for Salmonella 8 Because ethnic data is not always readily [...] 15-29 5 Kidney failure <15 (or dialysis) 9 Acute inflammation: >10.00 10 standing order 11 NO PLAIN CUP 12 SEE RESULT BELOW Name: AYSE KIMBLE : [address]: Nehemiah De Leon NP Acct: [id number] Unit: [id number] AGE: 57 Location: LAB Re10/07/17 SEX: F Status: REG REF SPEC: [id number] SPENCER: 10/07/17-1249 [facility] DR: Alexys Hernandez MD REQ: [id number] RECD: 10/07/17 STATUS: COMP _ SOURCE: STOOL SPDESC: ORDERED: Stool Culture COMMENTS: NO PLAIN CUP Verbal to FLORENTIN Noriega by [email or web address] at 1400 on 10/08/17. Results read back accurately. Submitted to [facility] via [employer] system by [id number] at 1457 on 10/08/17. Procedure Result Reported [...] CONTINUED ON NEXT PAGE DEPARTMENT OF PATHOLOGY, [address] [place] [address] Sergio Flores M.D. Director [facility] # [id number] Patient: AYSE KIMBLE [id number] (Continued) Specimen: [id number] Collected: 10/07/17-1250 Received: 10/07/17-1256 (Continued) Procedure Result Reported Site Shiga Toxin 1 2 Final (continued) 10/08/17- 1099 Immunochromatographic Assay * ML - Main Lab . END OF REPORT DEPARTMENT OF PATHOLOGY, [address] [place] [address] Sergio Flores M.D. Director [facility] # [id number] SEE RESULT BELOW Name: AYSE KIMBLE : [address]: Nehemiah De eLon NP Acct: [id number] Unit: [id number] AGE: 57 Location: LAB Re10/07/17 SEX: F Status: REG REF SPEC: [id number] SPENCER: 10/07/17-[address]: Alexys Hernandez MD REQ: [id number] RECD: 10/07/17-1255 STATUS: COMP _ SOURCE: STOOL SPDESC: ORDERED: Salmonella [place] Procedure Result Reported Site Salmonella Confirmation [facility] Final 10/22/17- 0928 ML FINAL IDENTIFICATION Salmonella Non-Typhi 10/21/2017 Major Tests Performed Culture and biochemical analysis: Salmonella Non-Typhi Please continue to submit isolates as required by Laboratory Reporting of Communicable Diseases guidelines. Test Performed by: [facility] [address] [place] [address] * ML - Main Lab . END OF REPORT DEPARTMENT OF PATHOLOGY, [address] [place] [address] Sergio Flores M.D. Director [facility] # [id number] 14 FASTING 15 Desirable: <150 Borderline High: 150-199 High: 200-499 Very High: >500 16 Desirable: <200 Borderline High: 200-239 High: >239 17 Low: <40 Desirable: 40-60 High: >60 18 Desirable: <100 Near Optimal: 100-129 Borderline High: 130-159 High: 160-189 Very High: >189 19 Because ethnic data is not always readily [...] 15-29 5 Kidney failure <15 (or dialysis) 20 Acute inflammation: >10.00 21 FASTING 22 Because ethnic data is not always readily [...] 15-29 5 Kidney failure <15 (or dialysis) 23 Acute inflammation: >10.00 24 STANDING ORDER ENTERED 02/04/17 EXPIRES 07/27/17 NON-FASTING Q 8 WEEKS OR DIRECTED 25 Because ethnic data is not always readily [...] 15-29 5 Kidney failure <15 (or dialysis) 26 Acute inflammation: >10.00 27 Because ethnic data is not always [...] (or dialysis) 28 Acute inflammation: >10.00 29 Desirable <150 Borderline high 150-199 High 200-499 Very High >500 30 Desirable <200 Borderline high 200-239 High >239 31 Low <40 Desirable: 40-60 High: >60 32 Desirable: <100 mg/dL Near Optimal: 100-129 mg/dL Borderline High: 130-159 mg/dL High: 160-189 mg/dL Very High: >189 mg/dL 33 S/O ENTERED ON 02/20/2016 EXPIRES 08/20/2016 34 Because ethnic data is not always readily [...] 15-29 5 Kidney failure <15 (or dialysis) 35 Acute inflammation: >10.00 36 Acute inflammation: >10.00 37 Standing labs every 2 months 38 Because ethnic data is not always readily [...] 15-29 5 Kidney failure <15 (or dialysis) 39 No interferon-gamma response to M. tuberculosis antigens was detected. Infection with M. tuberculosis is unlikely. A negative result alone does not exclude infection with M. tuberculosis. For detailed information regarding test interpretation see: [email or web address] Clinical+[email or web address] 40 Test Performed by: [place] [address] Lion Hunter: Claus Morrow II, M.D., Ph.D. 41 Acute inflammation: >10.00 42 Please check this week 43 Because ethnic data is not always [...] 5 Kidney failure <15 (or dialysis) 44 [facility] [place] [id number] 45 Because ethnic data is not always readily [...] 15-29 5 Kidney failure <15 (or dialysis) 46 Interferon-gamma response to M. tuberculosis antigens detected, [...] For detailed information regarding test interpretation see: [email or web address] Clinical+[email or web address]+[email or web address] 47 Test Performed by: [place] [address] Lion Hunter: Claus Morrow II, M.D., Ph.D. 48 Acute inflammation: >10.00 49 REFERENCE VALUE <20.0 (Negative) Test Performed by: [place] [address] Lion Hunter: Claus Morrow II, M.D., Ph.D. 50 Please check this week please 51 Test Performed by: [place] [address] [employer] Hunter: Claus Morrow II, M.D., Ph.D. 52 REFERENCE VALUE <=1.0 (Negative) Test Performed by: [address] [address] [employer] Hunter: Claus Morrow II, M.D., Ph.D. 53 CHOLESTEROL INTERPRETATION: Desirable: Less than 200 MG/DL Borderline-High Risk: 200-239 MG/DL High-Risk: 240 MG/DL and over 54 HDL INTERPRETATION: Undesirable: High Risk: Less than 40 MG/DL Desirable: Low Risk: Greater than 60 MG/DL 55 UNABLE TO CALCULATE LDL TRIGLYCERIDE IS > 400 56 Anion gap measurement may be of limited value in the presence of any alkalosis, especially in a combined acid base disorder. . 57 Note change in reference range as of 12/15/07. The change was based on recommendations from the [employer]. 58 Please note change in reference range effective 07 . 59 Because ethnic data is not always readily [...] 15-29 5 Kidney failure <15 (or dialysis) 60 Anion gap measurement may be of limited value in the presence of any alkalosis, especially in a combined acid base disorder. . 61 Please note change in reference range effective 07 . 62 Anion gap measurement may be of limited value in the presence of any alkalosis, especially in a combined acid base disorder. . 63 CHOLESTEROL INTERPRETATION: Desirable: Less than 200 MG/DL Borderline-High Risk: 200-239 MG/DL High-Risk: 240 MG/DL and over 64 HDL INTERPRETATION: Undesirable: High Risk: Less than 40 MG/DL Desirable: Low Risk: Greater than 60 MG/DL 65 LDL INTERPRETATION: Low Risk Optimal Level: LDL Less than 100 MG/DL Near or Above Optimal: LDL 100-129 MG/DL Borderline High Risk: LDL 130-159 MG/DL High Risk: LDL 160-189 MG/DL Very High Risk: LDL Greater than 189 MG/DL 66 Anion gap measurement may be of limited value in the presence of any alkalosis, especially in a combined acid base disorder. . 67 PLEASE NOTE NEW REFERENCE RANGES. 68 ---- RUN DATE: 07/07/07 [facility] NMI LIVE PAGE 1 RUN TIME: 1253 Specimen Inquiry RUN USER: INTERFACE [id number] AYSE KIMBLE 47/F <REG REF 07/03> ([id number]) Chasity Rothman -- Specimen: [id number] SOUT Spec Date: 07/04/[address]: Chasity LYNN Spec Type: CYTOLOGY Received: 07/06/07-1129 Copies to: SOURCE ECTOCERVICAL/ENDOCERVICAL Thin Prep with Reflex HPV Test PATIENT INFORMATION ACTUAL COLLECTION DATE: 07/04/07 ADEQUACY OF SPECIMEN Satisfactory for evaluation * Transformation zone component identified * DIAGNOSIS NEGATIVE FOR INTRAEPITHELIAL LESION OR MALIGNANCY * This Pap test was evaluated with the assistance of the [employer] Pap Test Imaging System. However, due to technical or cytologic issues, the imaging could not be completed. Comprehensive manual rescreening by a Detail Drafter was performed. The Pap Smear is a [...] 07/07/07 1253 -- -- DEPARTMENT OF PATHOLOGY, [address] [place] [address] [facility] Permit #[id number] Sergio Flores M.D. Director of Laboratories -- 69 Anion gap measurement may be of limited value in the presence of any alkalosis, especially in a combined acid base disorder. . 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 K21.9 Gastro-esophageal reflux disease without esophagitis 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 [address] Z00.01 Encounter for general adult medical exam w abnormal findings I10 Essential (primary) hypertension M54.2 Cervicalgia Office Visit 01/26/2017 1:00p Rheumatology Zsofia M06.09 [facility] arthritis w/o rheumatoid factor, multiple sites I10 Essential (primary) hypertension E78.5 Hyperlipidemia, unspecified F17.210 Nicotine dependence, cigarettes, uncomplicated K21.9 Gastro-esophageal reflux disease without esophagitis Z79.899 Other prison (current) drug therapy Z23 Encounter for immunization Office Visit 10/06/2016 1:00p Rheumatology Zsofia M06.09 [facility] arthritis w/o rheumatoid factor, multiple sites F17.210 Nicotine dependence, cigarettes, uncomplicated I10 Essential (primary) hypertension Z13.220 Encounter for screening for lipoid disorders M54.2 Cervicalgia F11.90 Opioid use, unspecified, uncomplicated Z79.899 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 Office Visit 06/30/2016 1:00p Rheumatology Oscarofia M06.09 [facility] arthritis w/o rheumatoid factor, multiple sites M54.2 Cervicalgia Z79.899 Other prison (current) drug therapy F17.210 Nicotine dependence, cigarettes, uncomplicated R03.0 Elevated blood-pressure reading, w/o diagnosis of htn Office Visit 03/10/2016 1:00p Rheumatology Zsofia M06.09 [facility] 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 M25.561 Pain in right knee M25.562 Pain in left knee M25.571 Pain in right ankle and joints of right foot M25.572 Pain in left ankle and joints of left foot F17.210 Nicotine dependence, cigarettes, uncomplicated M79.1 Myalgia M17.0 Bilateral primary osteoarthritis of knee Z78.0 Asymptomatic menopausal state Office Visit 11[facility]07[facility] R76.12 Nonspec reaction 1:20p Infectious Gareth Olivares to gamma intrfrn Diseases respns w/o actv tubrclosis Office Visit 11/07/2015 Rheumatology James Lopez, M06.09 Rheumatoid 1:00p [facility] 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79 Malaise And Fatigue Other V78.1 Screening Deficiency Anemia Other & Unspec V77.91 Screening For Lipoid Disorders 620.2 Ovarian Cyst Other & Unspec 493.00 Asthma Extrinsic Unspecified V76.2 Screening Malignant Neoplasm Cervix 787.91 Diarrhea Plan of Treatment Future Appointment(s):05/13/2018 1:15 pm - Kirstin Blum M.D. at [facility]07/12/2018 1:00 pm - MALIHA Araujo at [facility]04/28/2018 11:30 am - Kirstin Blum M.D. at [facility]06/14/2018 1:00 pm - MALIHA Araujo at [facility]04/13/2018 - Kirstin Blum M.D.M25.561 Pain in right kneeFollow up:Follow up : 2 weeks after mffresjS47.461 Effusion, right kneeM17.11 Unilateral primary osteoarthritis, right knee
--- OUTSIDE RECORDS SUMMARY | 2018-04-28 08:21 | XMS REPORT | Continuity of Care Document ---
:1960 External Reference #:[id number] Author Name Nury Adams Care Team Providers Name Role Phone Alexys Hernandez MD Primary Care Physician Unavailable Payers Type Date Identification Numbers Payment Provider Subscriber Policy Number: [id number] Medicare Ayse Kimble PayID: [id number] [address] [place] [address] Expires: 2015 Policy Number: [id number] Medicaid Ayse Kimble Group Name: 1 1 [address] PayID: [id number] [place] [address] Expires: 2008 Policy Number: [id number] Medicaid Ayse Kimble Group Name: 1 1 [address] PayID: [id number] [place] [address] Advance Directives Description No Information Available Problems [...] Date Description Comments Sex Unknown 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 - My Note Tobacco Use Start: Unknown Currently smokes 1-5 Cigarettes Daily Cigarette Use Pack Years - 25 Tobacco Use Start: Unknown Patient is a current cigarette smoker, smokes some days Smoking Status Reviewed: 04/12/18 Patient is a current cigarette smoker, smokes some days ETOH Use consumes 1-2 glasses of wine per week ETOH Use Occasionally consumes alcohol Recreational Drug Use Denies Drug Use Tobacco Use Start: Unknown End: Patient is a former Unknown smoker Exercise Type/Frequency Exercises regularly Allergies, Adverse Reactions, Alerts Description No Known Drug Allergies Medications Medication Date Status Form Strength Qnty SIG Indications Ordering Provider Mucinex 01/27/ Active Tablets ER 600mg 14tabs 1 by Zsofia 2018 12HR mouth Moises, twice a [employer] day Lisinopril 08/03/ Active Tablets 2.5mg 90tabs 1 by I10 Zsofia 2018 mouth Moises, every day [employer] Fluticasone 05/04/ Active Suspension 50mcg/Act 16gm 1 act J30.9 Zsofia Propionate 2018 each Moises, nostril [employer] twice daily Methotrexate 05/04/ Active Tablets 2.5mg 36tabs 3 tbs by M06.09 Zsofia 2018 mouth Moises, every [employer] week Z79.899 Proair HFA 01/26/2017 Active Aerosol 108(90Base) 8.5units 2 puffs Zsofia mcg/Act by mouth Moises, every 4 [employer] hours as needed Atorvastatin 01/26/2017 Active Tablets 20mg 90tabs take one E Zsofia Calcium tablet by 7 Moises, mouth 8 [employer] every day . 5 Omeprazole 01/26/2017 Active Capsules 20mg 90caps Take One K Zsofia DR Capsule 2 Moises, By Mouth 1 [employer] Every Day . 9 Cyclobenzaprine 12/15/2016 Active Tablets 5mg 30tabs take one Alexys HCL tablet by Ignacio mouth at a, M.D. bedtime as needed for back pain Ibu 06/30/2016 Active Tablets 600mg 60tabs take one M Zsofia tablet by 0 Moises, mouth 6 [employer] twice a . day as 0 needed 9 only Hydrocodone-Aceta 11/20/2015 Active Tablets 5-325mg 30tabs take one Z Zsofia minophen tablet by 7 Moises, mouth 9 [employer] daily as . needed 8 for pain 9 1 M54.5 Folic Acid 10/23/2015 Active Tablets 1mg 90tabs take one M06.09 Zsofia capsule/tablet Moises, [employer] daily by mouth Z79.899 Enbrel 10/16/2015 Active Solution 50mg/ml 3.92units Inject Z79.899 James Dimas Auto-Inject 50MG John, Kitty M.DSandip The Skin Every Week M06.09 Aspir-Low Active Tablets DR 81mg 1 by mouth Unknown every day Brenda-[place] Active Capsules 5-2-10-3 Unknown Plus Cold & 25mg Cough Nyquil Severe Active Liquid 5-6.25-1 Unknown Cold/Flu 0-325mg/ 15ML Benzonatate 01/27/2018 - Hx Capsules 100mg 14ca take 1 tab Zsofia 04/12/2018 ps by mouth two Moises, times a day [employer] as needed for cough Azithromycin 12/21/2017 - Hx Tablets 250mg 6tab 2 tab today J02 Alexys 04/12/2018 s and then .8 David, 1tab daily M.DSandip Cipro 10/12/2017 - Hx Tablets 500mg 20ta twice a day Alexys 10/22/2017 bs Gareth Hernandez Lisinopril 07/02/2016 - Hx Tablets 5mg 90ta take 1/2 I10 Garland 08/03/2017 bs tablet by David mouth every M.D. day Tizanidine HCL 05/12/2016 - Hx Tablets 2mg 30ta take one tab Zsofia 03/04/2017 bs at bedtime Moises, every day, [employer] may increase to 2 tabs at bedtime as needed Tizanidine HCL 05/08/2016 - Hx Capsules 2mg 30ca take one tab Zsofia 05/12/2016 ps at bedtime Moises, every day, [employer] may increase to 2 tabs at bedtime as needed Skelaxin 05/07/2016 - Hx Tablets 800mg 30ta take 1 tab Zsofia 05/08/2016 bs by mouth tid Moises, as needed [employer] for back pain Medrol 10/23/2015 - Hx TBPK 4mg 21un take as James 11/07/2015 its directed John, until M.D. finished as a medrol dose pack Methotrexate 10/23/2015 - Hx Tablets 2.5mg 48ta take 4 M06 Zsofia 05/04/2017 bs tablets by .09 Moises, mouth once [employer] weekly on Z79.899 Hydrocodone 10/16/2015 Hx Tablets 5-300mg 60tabs take one M06.09 James Bitartrate/Acetaminophen - capsule/tablet John, 10/16/2015 by mouth twice M.D. daily as needed for pain Naproxen 10/16/2015 Hx Tablets 500mg 180tabs take one M06.09 Zsofia - capsule/tablet Moises, 06/30/2016 daily by mouth [employer] as needed for severe pain, avoid with [...] Tablets 10mg 30tabs take one half 780.52 Garland - [facility]16/2015 hs prn insomnia Gareth gurrola Omeprazole 06/27/2007 Hx CPDR 20mg 60units take 1 tablet 2 Blake-Ramila - times daily l D. 10/16/2015 Gareth Lopez,FAC P Albuterol Hx Aers 90mcg/Ac 1units inhale 2 puffs Garland - t by mouth four Pachikar 01/26/2017 [...] to 6 Moises, 10/06/2016 hours as needed [employer] for pain Immunizations CPT Code Status Date Vaccine Reaction Lot # [id number] Given 04/12/2018 Influenza Virus Vaccine, no immediate reaction [id number] Quadrivalent, Split, noted Preservative Free 93073 Given 01/04/2018 Pneumococcal Conjugate no immediate reaction [id number] Vaccine 13 Valent For noted Intramuscular Use 50415 Given 01/26/2017 Influenza Virus Vaccine, [id number] Quadrivalent, Split, Preservative Free 54890 Given 03/10/2016 Influenza Virus Vaccine, [id number] Quadrivalent, Split Virus, Im Use 00079 Given 10/16/2015 Pneumonia Vaccine No reaction noted [id number] 96586 Given 02/26/2009 Influenza Virus Vaccine, [id number] Pandemic Formulation Vital Signs Date Vital Result Comment 04/12/2018 9:57am Height 60 inches 5'0" Weight [...] Test Result H/L Range Note Laboratory test [facility] TSH (Thyroid Stim 1.96 N 0.34-5.[address] Horm) mcIU/[place] [address] [phone] Lipid Profile [facility] Triglycerides 311 mg/dL 1 (Trig/Chol/HDL) [address] [place] [address] [phone] Cholesterol 207 mg/dL 2 HDL Cholesterol 43.4 mg/dL 3 LDL Cholesterol 101 mg/dL 4 Comp Metabolic Panel 01/04/2018 [facility] Sodium 137 mmol/L N 135-[address] [place] [address] [phone] Potassium 4.8 mmol/L N 3.5-5.0 Chloride 107 [...] Egfr 144.4 >60 5 Laboratory test 01/04/2018 [facility] C Reactive 8.64 mg/L High <8.[address] [place] [address] [phone] CBC Auto Diff 01/04/2018 [facility] White Blood 7.4 N 3.5- 10.[address] Count 10^3/[place] [address] [phone] Red Blood Count 4.09 10^6/uL N 4.00-5.40 [...] Blood Cells % 0.1 Laboratory test 01/04/2018 [facility] Erythrocyte Sed 31 mm/Hr High 0-[address] [place] [address] [phone] Basic Metabolic 10/12/2017 [facility] Sodium 139 N 135-[address] mmol/[place] [address] [phone] Potassium 4.3 mmol/L N 3.5-5.0 Chloride 104 mmol/L N 101-111 Co2 Carbon Dioxide 24 mmol/L N 22-32 Anion Gap 11 mmol/L N 2-11 Glucose 85 mg/dL N 70-100 Blood Urea Nitrogen 11 mg/dL N 6-24 Creatinine 0.57 mg/dL N 0.51-0.95 BUN/Creatinine Ratio 19.3 N 8-20 Calcium 9.7 mg/dL N 8.6-10.3 Egfr Non- 109.7 >60 Egfr 141.1 >60 6 CBC Auto Diff 10/07/2017 [facility] White Blood 7.2 10^3/uL N 3.5-10.[address] [place] [address] [phone] Red Blood Count 4.21 10^6/uL N 4.00-5.40 [...] Cells % 0.1 Comp Metabolic Panel 10/07/2017 [facility] Sodium 136 mmol/L Low 139-[address] [place], [place] [phone] Potassium 4.1 mmol/L N 3.5-5.0 Chloride 103 [...] Egfr 138.3 >60 8 Laboratory test 10/07/2017 [facility] C Reactive 30.96 mg/L High < 5.00 [address] [place] [address] [phone] Erythrocyte Sed Rate 34 mm/Hr High 0-30 10 Laboratory test 10/07/2017 [facility] Stool Culture SEE RESULT 11, [address] [place] [address] [phone] Salmonella Confirmation Nysdoh SEE RESULT BELOW 13 Lipid Profile 07/31/2017 [facility] Triglycerides 213 mg/dL 14, 15 (Trig/Chol/HDL) [address] [place] [address] [phone] Cholesterol 180 mg/dL 16 HDL Cholesterol 50.7 mg/dL 17 LDL Cholesterol 87 mg/dL 18 Comp Metabolic Panel 07/31/2017 [facility] Sodium 138 mmol/L Low 139-[address] [place] [address] [phone] Potassium 4.2 mmol/L N 3.5-5.0 Chloride 105 [...] Egfr 138.3 >60 19 Laboratory test 07/31/2017 [facility] C Reactive 2.19 mg/L N < 5.00 [address] [place] [address] [phone] TSH (Thyroid Stim Horm) 2.09 mcIU/mL N 0.34-5.60 21 CBC Auto Diff 05/04/2017 [facility] White Blood 8.0 10^3/uL N 3.5-10.[address] [place] [address] [phone] Red Blood Count 4.01 10^6/uL N 4.0-5.4 [...] Cells % 0.1 Comp Metabolic Panel 05/04/2017 [facility] Sodium 135 mmol/L N 133-[address] [place] [address] [phone] Potassium 4.3 mmol/L N 3.5-5.0 Chloride 103 [...] Egfr 153.5 >60 22 Laboratory test 05/04/2017 [facility] C Reactive 12.39 mg/L High < 5.00 [address] [place] [address] [phone] Erythrocyte Sed Rate 29 mm/Hr N 0-30 24 Comp Metabolic Panel 01/26/2017 [facility] Sodium 136 mmol/L N 133-[address] [place] [address] [phone] Potassium 4.0 mmol/L N 3.5-5.0 Chloride 104 [...] 136.1 N >60 25 Laboratory test 01/26/2017 [facility] C Reactive 3.24 mg/L N < 5.00 [address] [place] [address] [phone] CBC Auto Diff 01/26/2017 [facility] White Blood 8.3 N 3.5- 10.[address] Count 10^3/[place] [address] [phone] Red Blood Count 4.29 10^6/uL N 4.0-5.4 [...] Cells % 0.1 N Laboratory test 01/26/2017 [facility] Erythrocyte Sed 19 mm/Hr N 0-[address] [place] [address] [phone] CBC Auto Diff 11/16/2016 [facility] White Blood 6.1 N 3.5- 10.[address] Count 10^3/[place] [address] [phone] Red Blood Count 4.33 10^6/uL N 4.0-5.4 [...] % 0 N Comp Metabolic Panel 11/16/2016 [facility] Sodium 135 mmol/L N 133-[address] [place] [address] [phone] Potassium 4.3 mmol/L N 3.5-5.0 Chloride 105 [...] 154.0 N >60 27 Laboratory test 11/16/2016 [facility] C Reactive 4.63 mg/L N < 5.00 [address] [place] [address] [phone] Erythrocyte Sed Rate 17 mm/Hr N 0-30 Lipid Profile 11/16/2016 [facility] Triglycerides 370 mg/dL N 29 (Trig/Chol/HDL) [address] [place] [address] [phone] Cholesterol 253 mg/dL N 30 HDL Cholesterol 41.7 mg/dL N 31 LDL Cholesterol 137 mg/dL N 32 CBC Auto Diff 06/23/2016 [facility] White Blood 8.4 10^3/uL N 3.5-10.[address] [place] [address] [phone] Red Blood Count 4.49 10^6/uL N 4.0-5.4 [...] Cells % 0 N Laboratory test 06/23/2016 [facility] Erythrocyte Sed 15 mm/Hr N 0-30 [address] [place] [address] [phone] Comp Metabolic 06/23/2016 [facility] Sodium 137 mmol/L N 133- 145 Panel [address] [place] [address] [phone] Chloride 104 mmol/L N 101-111 Co2 Carbon [...] 24 U/L N 13-39 Laboratory test 06/23/2016 [facility] C Reactive 2.55 mg/L N < 5.[address] [place] [address] [phone] Laboratory test 02/19/2016 [facility] C Reactive 2.91 mg/L N < 5.00 36 finding [address] [place] [address] [phone] Erythrocyte Sed Rate 14 mm/Hr N 0-30 37 Comp Metabolic Panel 02/19/2016 [facility] Sodium 137 mmol/L N 133-145 [address] [place] [address] [phone] Potassium 4.3 mmol/L N 3.5-5.0 Chloride 103 [...] N >60 38 CBC Auto Diff 02/19/2016 [facility] White Blood 8.3 10^3/uL N 3.5-10.[address] [place] [address] [phone] Red Blood Count 4.37 10^6/uL N 4.0-5.4 [...] Cells % 0.1 N Liver Function 11/20/2015 [facility] Total Protein 6.7 g/dL N 6.4-8.[address] [place] [address] [phone] Albumin 3.9 g/dL N 3.2-5.2 Globulin 2.8 g/dL N 2-4 Albumin/Globulin Ratio 1.4 N 1-3 Total Bilirubin 0.30 mg/dL N 0.2-1.0 Direct Bilirubin 0.10 mg/dL N 0.03-0.18 Indirect Bilirubin 0.2 mg/dL Low 0.3-1.0 Alkaline Phosphatase 84 U/L N 34-104 Alt 11 U/L N 7-52 Ast 15 U/L N 13-39 Quantiferon Gold 11/20/2015 [facility] M tuberculosis Negative N Negative [address] [place] [place] [address] [phone] TB Ag minus Nil Result 0 IU/mL N TB Mitogen minus Nil Result > 10.00 IU/mL N TB Nil Result 0.04 IU/mL N 40 Laboratory test 11/20/2015 [facility] C Reactive 5.22 mg/L High < 5.00 [address] [place] [address] [phone] Erythrocyte Sed Rate 17 mm/Hr N 0-30 42 CBC Auto Diff 11/20/2015 [facility] White Blood 7.8 10^3/uL N 3.5-10.[address] [place] [address] [phone] Red Blood Count 4.02 10^6/uL N 4.0-5.4 [...] % 0.1 N Comp Metabolic Panel 11/20/2015 [facility] Sodium 136 mmol/L N 133-145 [address] [place] [address] [phone] Potassium 4.3 mmol/L N 3.5-5.0 Chloride 105 [...] 154.6 N >60 43 CMP Panel 10/25/2015 [facility] Sodium 140 mmol/L N 133-145 [address] [place] [address] [phone] Potassium 4.8 mmol/L N 3.5-5.0 Chloride 103 [...] 118.0 N >60 45 Quantiferon Gold 10/22/2015 [facility] M tuberculosis Positive N Negative [address] [place] [place] [address] [phone] TB Ag minus Nil Result 0.65 IU/mL N TB Mitogen minus Nil Result 13.27 IU/mL N TB Nil Result 0.04 IU/mL N 47 Laboratory test 10/22/2015 [facility] C Reactive 8.51 mg/L High < 5.00 [address] [place] [address] [phone] Cyclic Citrullinated Pep Igg <15.6 U N 49 Erythrocyte Sed Rate 18 mm/Hr N 0-30 50 Rheumatoid Factor <15 IU/mL N <15 51 CBC Auto Diff 10/22/2015 [facility] White Blood 8.5 10^3/uL N 3.5-10.[address] [place] [address] [phone] Red Blood Count 4.22 10^6/uL N 4.0-5.4 [...] Cells % 0.1 N Laboratory test 10/22/2015 [facility] Anti Nuclear 0.9 U N [address] [place] [address] [phone] Laboratory test 11/26/2009 General Ophthalmologist In House Hemoglobin A1c 5.7 5-7 finding Lipid Profile 11/22/2009 [facility] Triglyceride 426 High 40- 20 (Trig/Chol/HDL) [address] mg/dL 0 [place] [address] [phone] Cholesterol 251 mg/dL High Less Than 200 53 High Density Lipoprotein 36 mg/dL Low 40-60 54 Cholesterol/HDL Ratio 6.97 AVERAGE High 1-4.44 Low Density Lipoprotein (SEE NOTE) mg/dL Less Than 100 55 Basic Metabolic Panel 11/22/2009 [facility] Sodium 139 mmol/L 135-[address] [place] [address] [phone] Potassium 4.5 mmol/L 3.5-5.0 Chloride 106 mmol/L 101-111 Co2 (Carbon Dioxide) 25.0 mmol/L 22-32 Anion Gap 8.0 mmol/L 2-11 56 Glucose 106 mg/dL High 70-100 57 BUN 9 mg/dL 6-24 Creatinine 0.60 mg/dL 0.50-1.40 One Over Creatinine 1.60 BUN/Creatinine Ratio 15.0 8-20 Calcium 9.4 mg/dL 8.1-9.9 58 eGFR Non- 113.4 > 60 eGFR 137.2 > 60 59 Laboratory test 11/16/2007 [facility] Erythrocyte Sed 1 MM/HR 0-[address] [place] [address] [phone] CBC With 11/16/2007 [facility] White Blood 9.1 CUMM 4.8-10.8 Electronic Diff [address] [place] [address] [phone] Red Cell Count 3.82 CUMM Low 4.2-5.4 [...] Basophils 0 0-0.2 Basic Metabolic Panel 10/10/2007 [facility] Sodium 139 mmol/L 135-145 [address] [place] [address] [phone] Potassium 4.1 mmol/L 3.5-5.0 Chloride 108 mmol/L 101-111 Co2 (Carbon Dioxide) 26.0 mmol/L 22-32 Anion Gap 5.0 mmol/L 2-11 60 Glucose 105 mg/dL 70-105 BUN 14 mg/dL 6-24 Creatinine 0.7 mg/dL 0.5-1.4 One Over Creatinine 1.42 BUN/Creatinine Ratio 20.0 8-20 Calcium 9.6 mg/dL 8.1-9.9 61 Liver Function 10/10/2007 [facility] Total Protein 7.2 GM/DL 6.2-8.1 Panel [address] [place] [address] [phone] Albumin 4.2 GM/DL 3.6-5.4 Globulin 3.0 GM/DL 2-4 Albumin/Globulin Ratio 1.4 1-3 Bilirubin Total 0.5 mg/dL 0.4-1.5 Bilirubin Direct 0.1 mg/dL 0.1-0.5 Indirect Bilirubin 0.4 mg/dL 0.1-0.75 Alkaline Phosphatase 55 U/L 30-110 Alt (SGPT) 25 U/L 14-54 Ast (Sgot) 25 U/L 12-42 Laboratory test 10/10/2007 [facility] C Reactive < 0.5 mg/dL Less Than finding [address] Protein 0.5 [place], [place] [address] [phone] CBC With 10/10/2007 [facility] White Blood 8.3 CUMM 4.8-10.8 Electronic Diff [address] [place] [address] [phone] Red Cell Count 3.87 CUMM Low 4.2-5.4 [...] Abs Basophils 0 0-0.2 Laboratory test 10/10/2007 [facility] Erythrocyte Sed 10 MM/HR 0-[address] [place] [address] [phone] Basic Metabolic 09/09/2007 [facility] Sodium 141 mmol/L 135- [address] [place] [address] [phone] Potassium 3.8 mmol/L 3.5-5.0 Chloride 108 mmol/L 101-111 Co2 (Carbon Dioxide) 25.0 mmol/L 22-32 Anion Gap 8.0 mmol/L 2-11 62 Glucose 107 mg/dL High 70-105 BUN 10 mg/dL 6-24 Creatinine 0.7 mg/dL 0.5-1.4 One Over Creatinine 1.42 BUN/Creatinine Ratio 14.3 8-20 Calcium 9.4 mg/dL 8.7-10.2 Liver Function 09/09/2007 [facility] Total Protein 7.1 GM/DL 6.2-8.[address] [place] [address] [phone] Albumin 4.2 GM/DL 3.6-5.4 Globulin 2.9 GM/DL 2-4 Albumin/Globulin Ratio 1.4 1-3 Bilirubin Total 0.5 mg/dL 0.4-1.5 Bilirubin Direct < 0.1 mg/dL Low 0.1-0.5 Alkaline Phosphatase 61 U/L 30-110 Alt (SGPT) 17 U/L 14-54 Ast (Sgot) 20 U/L 12-42 Laboratory test 09/09/2007 [facility] C Reactive < 0.5 Less Than finding [address] Protein mg/dL 0.5 [place] [address] [phone] CBC With 09/09/2007 [facility] White Blood 11.6 CUMM High 4.8- 10.8 Electronic Diff [address] [place] [address] [phone] Red Cell Count 4.00 CUMM Low 4.2-5.4 [...] Abs Basophils 0 0-0.2 Laboratory test 09/09/2007 [facility] Erythrocyte Sed 8 MM/HR 0-[address] [place] [address] [phone] Iron & Iron 07/25/2007 [facility] Iron Total 91 g/dL 28- 170 Binding Capacity [address] [place] [address] [phone] Unsaturated Iron Binding 312 g/dL Total Iron Binding Capacity 403 g/dL 250-450 % Iron Saturation 23 % 15-55 CBC With Manual Diff 07/25/2007 [facility] RBC Morphology NORMAL [address] [place] [address] [phone] White Blood Count 7.8 CUMM 4.8-10.8 Absolute [...] WDTH 15 % 10.5-15 Lipid Profile 07/25/2007 [facility] Cholesterol/HDL 5.56 High 1-4.44 (Trig/Chol/HDL) [address] [place] [address] [phone] Cholesterol 228 mg/dL High Less Than 200 63 Triglyceride 307 mg/dL High 40-200 High Density Lipoprotein 41 mg/dL 40-60 64 Low Density Lipoprotein 126 mg/dL High Less Than 100 65 Laboratory test 07/25/2007 [facility] C Reactive < 0.5 Less Than finding [address] Protein mg/dL 0.5 [place] [address] [phone] Comp Metabolic 07/25/2007 [facility] One Over 1.[address] [place] [address] [phone] Anion Gap 5.0 mmol/L 2-11 66 Albumin/Globulin [...] Creatinine 0.7 mg/dL 0.5-1.4 Liver Function 07/25/2007 [facility] Bilirubin Direct 0.1 mg/dL 0.1-0.5 [place] [address] [phone] Indirect Bilirubin 0.7 mg/dL 0.1-0.75 Laboratory test 07/25/2007 [facility] Ferritin 53 NG/ML 11.0- 307 [place] [address] [phone] Erythrocyte Sed Rate 12 MM/HR 0-15 Vitamin B12 And 07/25/2007 [facility] Vitamin B12 604 pg/mL 180-914 [place] [address] [phone] Folic Acid 9.2 NG/ML 2-16 Laboratory test 07/25/2007 [facility] TSH 1.88 MIU/ML 0.34- 5.60 [place] [address] [phone] Free Thyroxine 1.01 NG/ML 0.61-1.24 67 Laboratory 07/04/2007 [facility] Cytology 68 test finding <SEE NOTE> [place] [address] [phone] Stool For 07/04/2007 General Ophthalmologist In House Misc Negative Blood Laboratory 06/17/2007 [facility] C Reactive < 0.5 mg/dL Less test finding [place] [address] [phone] [phone] Basic 06/17/2007 [facility] One Over 1.66 Met[place] [address] [phone] Anion Gap 5.0 mmol/L 2-11 69 BUN 8 mg/dL 6-24 Calcium 9.4 mg/dL 8.7-10.2 Chloride 108 mmol/L 101-111 Co2 (Carbon Dioxide) 26.0 mmol/L 22-32 Glucose 91 mg/dL 70-105 Potassium 4.8 mmol/L 3.5-5.0 Sodium 139 mmol/L 135-145 BUN/Creatinine Ratio 13.3 8-20 Creatinine 0.6 mg/dL 0.5-1.4 Liver Function 06/17/2007 [facility] Albumin/Globulin Ratio 1.3 1-[address] [place] [address] [phone] Albumin 4.0 GM/DL 3.6-5.4 Alkaline Phosphatase 59 U/L 30-110 Alt (SGPT) 14 U/L 14-54 Ast (Sgot) 20 U/L 12-42 Bilirubin Direct < 0.1 mg/dL Low 0.1-0.5 Globulin 3.2 GM/DL 2-4 Bilirubin Total 0.6 mg/dL 0.4-1.5 Total Protein 7.2 GM/DL 6.2-8.1 CBC With 06/17/2007 [facility] White Blood 7.5 CUMM 4.8-10.8 Electronic Diff [address] [place] [address] [phone] Abs Basophils 0 0-0.2 Abs Eosinophils 0.2 [...] WDTH 15 % 10.5-15 Laboratory test 06/17/2007 [facility] Erythrocyte Sed 15 MM/HR 0-[address] [place] [address] [phone] 1 Desirable: <150 Borderline High: 150-199 High: [...] Attend Dr: Nehemiah De Leon NP Acct: [id number] Unit: [id number] AGE: 57 Location: LAB Re10/07/17 SEX: F Status: REG REF SPEC: [id number] SPENCER: 10/07/17-[address]: Alexys Hernandez MD REQ: [id number] RECD: 10/07/17 STATUS: COMP _ SOURCE: STOOL SPDESC: ORDERED: Stool Culture COMMENTS: NO PLAIN CUP Verbal to FLORENTIN O by [email or web address] at 1400 on 10/08/17. Results read back accurately. Submitted to [facility] via [employer] system by [email or web address] at 1457 on 10/08/17. Procedure Result Reported [...] CONTINUED ON NEXT PAGE DEPARTMENT OF PATHOLOGY, [address] [place] [address] Sergio Flores M.D. Director [facility] # [id number] Patient: AYSE KIMBLE [id number] (Continued) Specimen: [id number] Collected: 10/07/17 Received: 10/07/17 (Continued) Procedure Result Reported Site Shiga Toxin 1 2 Final (continued) 10/08/17- 1099 Immunochromatographic Assay * ML - Main Lab . END OF REPORT DEPARTMENT OF PATHOLOGY, [address] [place] [address] Sergio Flores M.D. Director [facility] # [id number] 13 SEE RESULT BELOW Name: AYSE KIMBLE : [address]: Nehemiah De Leon NP Acct: [id number] Unit: [id number] AGE: 57 Location: LAB Re10/07/17 SEX: F Status: REG REF SPEC: [id number] SPENCER: 10/07/17-[address]: Alexys Hernandez MD REQ: [id number] RECD: 10/07/17 STATUS: COMP _ SOURCE: STOOL SPDESC: ORDERED: Salmonella [place] Procedure Result Reported Site Salmonella Confirmation [facility] Final 10/22/17- 0928 ML FINAL IDENTIFICATION Salmonella Non-Typhi 10/21/2017 Major Tests Performed Culture and biochemical analysis: Salmonella Non-Typhi Please continue to submit isolates as required by Laboratory Reporting of Communicable Diseases guidelines. Test Performed by: [facility] [address] [place] [address] * ML - Main Lab . END OF REPORT DEPARTMENT OF PATHOLOGY, [address] [place] [address] Sergio Flores M.D. Director [facility] # [id number] FASTING 15 Desirable: <150 Borderline High: [...] For detailed information regarding test interpretation see: [email or web address] Clinical+and+Interpretive/54433 40 Test Performed by: [place] [address] Sales Warehouse Driver: Claus Morrow II, M.D., Ph.D. 41 Acute [...] 5 Kidney failure <15 (or dialysis) 44 [facility] [place] [id number] 45 Because ethnic data is not always [...] For detailed information regarding test interpretation see: [email or web address]-catalog/ Clinical+and+Interpretive/33128 47 Test Performed by: [place] [address] Sales Warehouse Driver: Claus Morrow II, M.D., Ph.D. 48 Acute inflammation: >10.00 49 REFERENCE VALUE <20.0 (Negative) Test Performed by: [place] [address] Sales Warehouse Driver: Claus Morrow II, M.D., Ph.D. 50 Please check this week please 51 Test Performed by: [place] [address] Sales Warehouse Driver: Claus Morrow II, M.D., Ph.D. 52 REFERENCE VALUE <=1.0 (Negative) Test Performed by: [address], [place] [address] Sales Warehouse Driver: Claus Morrow II, M.D., Ph.D. 53 CHOLESTEROL [...] change was based on recommendations from the [employer]. 58 Please note change in [...] REFERENCE RANGES. 68 ---- RUN DATE: 07/07/07 [facility] NMI LIVE PAGE 1 RUN TIME: 1253 Specimen Inquiry RUN USER: INTERFACE [id number] AYSE KIMBLE 47/F <REG REF 07/03> ([id number]) Chasity Rothman -- Specimen: [id number] SOUT Spec Date: 07/04/[address]: Chasity LYNN Spec Type: CYTOLOGY Received: 07/06/07-1129 Copies to: SOURCE ECTOCERVICAL/ENDOCERVICAL Thin Prep with Reflex HPV Test PATIENT INFORMATION ACTUAL COLLECTION DATE: 07/04/07 ADEQUACY OF SPECIMEN Satisfactory for evaluation * Transformation zone component identified * DIAGNOSIS NEGATIVE FOR INTRAEPITHELIAL LESION OR MALIGNANCY * This Pap test was evaluated with the assistance of the Resource Data[employer] Pap Test Imaging System. However, due to technical or cytologic issues, the imaging could not be completed. Comprehensive manual rescreening by a Room Manager was performed. The Pap Smear is a [...] years. Final Interpretation electronically signed by: Becky HOSKINS([facility]) 07/07/07 1253 -- -- DEPARTMENT OF PATHOLOGY, [address] [place] [address] [facility] Permit #[id number] Sergio Flores M.D. Director of Laboratories -- 69 Anion gap measurement may be of limited value in the presence of any alkalosis, especially in a combined acid base disorder. . Procedures Date Code Description Status 01/06/2018 [id number] Mammogram Completed 09/24/2016 [id number] Colonoscopy Completed 02/19/2016 [id number] Bone Mineral Density Test Completed 11/28/2009 [id number] Mammogram Completed 11/26/2009 96557 Screening Vision Test Completed 04/03/2008 [id number] Mammogram Completed 06/17/2007 [id number] Mammogram Completed Encounters Type Date Location Provider Dx Diagnosis Office Visit 02/04/2018 Orthopedic Kirstin Blum, M25.561 Pain in right 10:30a [facility] knee M25.461 Effusion, right knee M17.11 Unilateral primary osteoarthritis, right knee M06.09 Rheumatoid arthritis w/o rheumatoid factor, multiple sites Office Visit 01/04/2018 1:00p Rheumatology ofi M06.09 Rheumatoid 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 due to other [address] specified organisms E78.2 Mixed hyperlipidemia Z12.31 Encntr screen mammogram for malignant neoplasm of breast K21.9 Gastro-esophageal reflux disease without esophagitis Office Visit 08/03/2017 1:30p Rheumatology Zsofia M06.09 [facility] arthritis w/o rheumatoid factor, multiple sites I10 Essential (primary) hypertension E78.2 Mixed hyperlipidemia F17.210 Nicotine dependence, cigarettes, uncomplicated Z79.899 Other custodial (current) drug therapy K21.9 Gastro-esophageal reflux disease without esophagitis Z79.891 FPC (current) use of opiate analgesic Office Visit 05/04/2017 1:00p Rheumatology Zsofia M06.09 [facility] arthritis w/o rheumatoid factor, multiple sites J30.9 Allergic rhinitis, unspecified F17.210 Nicotine dependence, cigarettes, uncomplicated Z79.899 Other superintendent [employer] (current) drug therapy H02.826 Cysts of left eye, unspecified eyelid H92.03 Otalgia, bilateral Office Visit 03/04/2017 [facility] Internal [place] E78.2 Mixed hyperlipidemia 2:00p Hugo Hernandez M.D. [address] Z00.01 Encounter for general adult medical exam w abnormal findings I10 Essential (primary) hypertension M54.2 Cervicalgia Office Visit 01/26/2017 1:00p Rheumatology Oscarofia M06.09 [facility] arthritis w/o rheumatoid factor, multiple sites I10 Essential (primary) hypertension E78.5 Hyperlipidemia, unspecified F17.210 Nicotine dependence, cigarettes, uncomplicated K21.9 Gastro-esophageal reflux disease without esophagitis Z79.899 Other custodial (current) drug therapy Z23 Encounter for immunization Office Visit 10/06/2016 1:00p Rheumatology Zsofia M06.09 [facility] arthritis w/o rheumatoid factor, multiple sites F17.210 Nicotine dependence, cigarettes, uncomplicated I10 Essential (primary) hypertension Z13.220 Encounter for screening for lipoid disorders M54.2 Cervicalgia F11.90 Opioid use, unspecified, uncomplicated Z79.899 Other superintendent [employer] (current) drug therapy Office Visit 06/30/2016 1:00p Rheumatology Oscarofiizabela M06.09 [facility] arthritis w/o rheumatoid factor, multiple sites M54.2 Cervicalgia Z79.899 Other custodial (current) drug therapy F17.210 Nicotine dependence, cigarettes, uncomplicated R03.0 Elevated blood-pressure reading, w/o diagnosis of htn Office Visit 03/10/2016 1:00p Rheumatology Oscarofiizabela M06.09 [facility] arthritis w/o rheumatoid factor, multiple sites Z79.899 Other custodial (current) drug therapy F17.210 Nicotine dependence, cigarettes, uncomplicated Z23 Encounter for immunization M17.0 Bilateral primary osteoarthritis of knee Office Visit 01/06/2016 1:00p Rheumatology James M06.09 Rhe[facility]oid [facility] Lopez M.D. arthritis w/o rheumatoid factor, multiple sites Z79.899 Other superintendent [employer] (current) drug therapy M25.561 Pain in right knee M25.562 Pain in left knee M25.571 Pain in right ankle and joints of right foot M25.572 Pain in left ankle and joints of left foot F17.210 Nicotine dependence, cigarettes, uncomplicated M79.1 Myalgia M17.0 Bilateral primary osteoarthritis of knee Z78.0 Asymptomatic menopausal state Office Visit 11/07/2015 [facility] Tk Lofton R76.12 Nonspec reaction 1:20p Infectious Gareth Olivares to gamma intrfrn Diseases respns w/o actv tubrclosis Office Visit 11/07/2015 Rheumatology James Lopez, M06.09 Rheumatoid 1:00p [facility] arthritis w/o rheumatoid factor, multiple sites Z79.899 Other custodial (current) drug therapy M79.1 Myalgia M17.0 Bilateral primary osteoarthritis of knee Z78.0 Asymptomatic menopausal state F17.210 Nicotine dependence, cigarettes, uncomplicated M25.551 Pain in right hip Office Visit 10/16/2015 1:00p Rheumatology James M06.09 Rhe[facility] Lopez M.D. arthritis w/o rheumatoid factor, multiple sites Z79.899 Other custodial (current) drug therapy M79.1 Myalgia M17.0 Bilateral primary osteoarthritis of knee Z23 Encounter for immunization F17.210 Nicotine dependence, cigarettes, uncomplicated Office Visit 11/26/2009 DO Not Use General Ophthalmologist Garland 272.2 Hyperlipidemia Mixed 9:00a AT [facility] Hernandez M.D. V70.0 Examination General Medical Routine AT [facility] 493.00 Asthma Extrinsic Unspecified 530.81 Esophageal Reflux 780.52 Insomnia Unspecified 790.6 Abnormal Blood Chemistry Other V76.9 Screening Malignant Neoplasm Unspec 555.2 Enteritis Small Intestine W/ Large Intestine 305.1 Tobacco Use Disorder 714.0 Rheumatoid Arthritis Office Visit 04/02/2008 11:00a DO Not Use General Ophthalmologist Chasity Mack PA 785.6 Lymph Nodes AT [facility] Enlargement Office Visit 03/21/2008 1:00p DO Not Use General Ophthalmologist Chasity Mack PA 959.5 Injury Finger AT [facility] Other & Unspec 719.45 Pain Joint Pelvic Region & Thigh 493.00 Asthma Extrinsic Unspecified 530.81 Esophageal Reflux 309.0 Adjustment Disorder With Depression Office Visit 07/04/2007 3:00p DO Not Use General Ophthalmologist Chasity Mack PA 780.52 Insomnia AT [facility] Unspecified 578.9 Hemorrhage Gastrointestinal Tract Unspec 780.79 Malaise And Fatigue Other V78.1 Screening Deficiency Anemia Other & Unspec V77.91 Screening For Lipoid Disorders 620.2 Ovarian Cyst Other & Unspec 493.00 Asthma Extrinsic Unspecified V76.2 Screening Malignant Neoplasm Cervix 787.91 Diarrhea Plan of Treatment Future Appointment(s):07/12/2018 1:00 pm - MALIHA Araujo at [facility]04/13/2018 8:30 am - Kirstin Blum M.D. at [facility].04/28/2018 11:30 am - Kirstin Blum M.D. at [facility].06/14/2018 1:00 pm - MALIHA Araujo at [facility] - PUJA AraujoPM06.09 Rheumatoid arthritis without rheumatoid factor, multiple sitesComments:Your arthritis seems to be clinically well controlled at this time.Please, continue on methotrexateof 3 tabs.Continue with Enbrel. Please call the office if you develop any sign or symptoms of infection or acute change in your health.Follow up:5 month Labs every 3 ilyraJ92.561 Pain in right kneeReferral:Kirstin Blum MD, Surgery,Ortho Adult CdghnZ83.5 Low back painZ79.899 Other superintendent [employer] (current) drug [id number] termination clerk (current) use of opiate [id number] Encounter for immunizationComments:This is your second vaccination for pneumonia and this will complete your vaccination requirement against pneumonia until age 65
[2018-04-28] MEDS ORDERED: Dexamethasone IV* 4 MG/ML 1 ML (4 MG) ONE (08:35)
[2018-04-28] MEDS ORDERED: Gabapentin CAP(*) 300 MG ONE (08:36)
[2018-04-28] MEDS ORDERED: celeCOXIB CAP* 100 MG ONE (08:36)
[2018-04-28] MEDS ORDERED: ceFAZolin 2 GM PREMIX in ORs 2 GM/50 ML BAG IVPB ONE (08:36)
[2018-04-28] MEDS ORDERED: Acetaminophen IV 1GM/100ML * 100 ML ONE (08:38)
[2018-04-28] MEDS: Buffered Lidocaine 0.9% SYRIN* 5 ML/SYR SYRINGE INTRADERM ONE ×2 (09:07→16:49)
[2018-04-28] MEDS ORDERED: ROPIVACAINE 5 MG/ML 30 ML BTL (0.5%) ONE (10:20)
[2018-04-28] MEDS ORDERED: Lidocaine 2% PF * 5 ML VIAL ONE (10:34)
[2018-04-28] MEDS ORDERED: Atracurium* 10 MG/ML 10 ML VIAL ONE (10:34)
[2018-04-28] MEDS ORDERED: fentaNYL* 50 MCG/ML 5 ML VIAL (250 MCG VIAL) ONE (10:34)
[2018-04-28] MEDS ORDERED: Propofol* 10 MG/ML 20 ML BTL ONE (10:34)
[2018-04-28] MEDS ORDERED: Ondansetron INJ* 2 MG/ML VIAL ONE (10:34)
[2018-04-28] MEDS ORDERED: Midazolam* 1 MG/ML 5 ML VIAL (5 MG) ONE (10:34)
[2018-04-28] MEDS ORDERED: EPHEDrine (Pressors)* 50 MG/ML VIAL ONE (10:35)
[2018-04-28] MEDS ORDERED: Bupivacaine 0.5%* 50 ML VIAL ONE (10:42)
[2018-04-28] MEDS ORDERED: fentaNYL* 50 MCG/ML 2 ML VIAL (100 MCG VIAL) ONE ×3 (12:18→14:20)
[2018-04-28] MEDS ORDERED: Metoprolol Tartrate IV* 1 MG/ML 5 ML VIAL ONE ×2 (12:25→14:40)
[2018-04-28] MEDS ORDERED: Bisacodyl SUPP* 10 MG SUPP PR PRN (13:58)
[2018-04-28] MEDS ORDERED: traMADol TAB* 50 MG PO PRN (13:58)
[2018-04-28] MEDS ORDERED: Cyclobenzaprine TAB* 10 MG PO PRN (13:58)
[2018-04-28] MEDS ORDERED: oxyCODONE/Acetamin 5/325 MG* TAB PO PRN (13:58)
[2018-04-28] MEDS ORDERED: Magnesium Hydroxide LIQ* 30 ML UDC PO PRN (13:58)
[2018-04-28] MEDS ORDERED: diPHENhydraMINE IV* 50 MG/ML 1 ml VIAL (BENADRYL) IV PRN (13:58)
[2018-04-28] MEDS ORDERED: Morphine VIAL* 4 MG/ML VIAL (1 ml vial) IV PRN (13:58)
[2018-04-28] MEDS ORDERED: Ondansetron TAB* 4 MG PO PRN (13:58)
[2018-04-28] MEDS ORDERED: Polyethylene Glycol 3350* 17 GM PACKET PO PRN (13:58)
[2018-04-28] MEDS ORDERED: Ondansetron INJ* 2 MG/ML VIAL IV PRN ×2 (13:58→14:18)
[2018-04-28] MEDS ORDERED: oxyCODONE TAB* 5 MG TAB PO PRN (13:58)
[2018-04-28] MEDS ORDERED: Albuterol HFA INHALER* 8 gm MDI INH PRN (14:07)
[2018-04-28] MEDS ORDERED: Naloxone* 0.4 MG/ML 1 ML VIAL IV PRN (14:18)
[2018-04-28] MEDS: Metoprolol Tartrate IV* 1 MG/ML 5 ML VIAL IV PRN ×3 (14:18→14:36)
[2018-04-28] MEDS ORDERED: DiMENhydriNATE IV* 50 MG/ML VIAL IV PUSH PRN (14:18)
[2018-04-28] MEDS ORDERED: HYDROmorphone INJ1* 1 MG/ML SYRINGE ONE (14:20)
[2018-04-28] MEDS: fentaNYL* 50 MCG/ML 2 ML VIAL (100 MCG VIAL) IV PRN ×2 (14:22→14:44)
[2018-04-28] MEDS: HYDROmorphone INJ1* 1 MG/ML SYRINGE IV PRN ×2 (14:48→15:43)
--- NOTE | 2018-04-28 14:48 | PN ---
Progress Note - Progress Note Date of Service: 04/28/18 Note: resting comfortably in recovery. pain controlled. denies SOB/ chest pain. able to dorsi flex/plantar flex, intact sensation, 2+ DP pulse
[2018-04-28] MEDS ORDERED: hydrALAZINE IV* 20 MG/ML VIAL IV SLOW PU ONE (16:30)
[2018-04-28] MEDS ORDERED: hydrALAZINE IV* 20 MG/ML VIAL ONE (16:32)
[2018-04-28] MEDS: Lactated Ringers 1000 ML Bag* 1,000 ML IV SCH (16:59)
[2018-04-28] MEDS: oxyCODONE/Acetamin 5/325 MG* TAB PO PRN (19:21)
[2018-04-28] MEDS: ceFAZolin 1 GM ADVAN(*) 1 GM in NS 0.9% 50 ML* 50 ML IVPB SCH (19:57)
[2018-04-28] MEDS: Docusate CAP* 100 MG PO SCH (19:57)
[2018-04-28] MEDS: Acetaminophen TAB* 325 MG PO SCH (20:01)
[2018-04-28] MEDS: Magnesium Hydroxide LIQ* 30 ML UDC PO SCH (20:01)
--- NOTE | 2018-04-28 22:47 | CONS ---
CC: Dr. Kirstin Blum; Dr. Hernandez; Dr. Diane Thomas * CONSULTATION REPORT: DATE OF ADMISSION: 04/28/18 DATE OF CONSULT: 04/28/18 PRIMARY CARE PROVIDER: Dr. Hernandez, but currently Dr. Thomas is filling in. PHYSICIAN REQUESTING CONSULTATION: Dr. Kirstin Blum. ATTENDING PHYSICIAN: Dr. Pari Chester (dictated by Devon Elias NP). REASON FOR CONSULT: Co-medical management in a patient with a history of rheumatoid arthritis, asthma, hypertension, and hyperlipidemia. HISTORY OF PRESENT ILLNESS: Ms. Kimble is a 58-year-old female with past medical history significant for rheumatoid arthritis, asthma, hypertension, hypercholesterolemia who has osteoarthritis of the right knee failing conservative treatment and elected to proceed with a right total knee arthroplasty. Leading up to her procedure today, Ms. Kimble has been in her usual state of health. Denies any fevers, chills, chest pain, shortness of breath, nausea, vomiting, diarrhea, or urinary symptoms. Today, Ms. Kimble underwent elective right total knee arthroplasty and the hospitalists have been asked to assist with co- medical management of the patient during her hospitalization. Postoperatively, the patient is doing well. Her pain is controlled. PAST MEDICAL HISTORY: 1. Rheumatoid arthritis. 2. Asthma. 3. Hypertension. 4. Hypercholesterolemia. PAST SURGICAL HISTORY: 1. Status post left total hip arthroplasty. 2. Status post tonsillectomy. 3. Status post cholecystectomy. 4. Status post left shoulder rotator cuff repair. HOME MEDICATIONS: Include: 1. Lisinopril 2.5 mg oral daily. 2. Methotrexate 7.5 mg oral weekly on Fridays. 3. ProAir HFA 1 puff inhalation every 4 hours as needed for shortness of breath or wheeze. 4. Omeprazole 20 mg oral daily. 5. Atorvastatin 20 mg oral daily. 6. Cyclobenzaprine 5 mg oral daily as needed at bedtime for muscle spasms. 7. Ibuprofen 600 mg oral twice daily as needed for pain. 8. [place] 5/325 one tablet oral every morning as needed for pain. 9. Folic acid 1 mg oral every morning. 10. Enbrel SureClick 50 mg subcutaneously weekly on Mondays. 11. Aspirin 81 mg oral daily. ALLERGIES: No known drug allergies. FAMILY HISTORY: The patient denies any family history of coronary artery disease. Maternal grandmother, mother, and brother with a history of diabetes mellitus. Mother with a history of breast cancer. SOCIAL HISTORY: The patient denies tobacco or recreational drug use. She is a former smoker, smoking 25 pack-years; she quit in December 2017. She occasionally drinks alcohol. She drinks 1 to 2 glasses of wine a week. The patient's surrogate decision maker will be her son, Lauro Cornelius, in the event she is unable to make decisions for herself. REVIEW OF SYSTEMS: I performed an 11-point review of systems. All the pertinent positives and negatives are mentioned in the history of present illness. The remaining review of systems are negative. PHYSICAL EXAMINATION: Vital Signs: Temperature 97.9, heart rate 87, respiratory rate 16, O2 sat 93% on room air, blood pressure 151/91. General Appearance: The patient is alert, pleasant, appears to be in no acute distress. HEENT: Normocephalic, atraumatic. Pupils are equal and reactive to light. Extraocular movements are intact. Neck: Supple. There is no lymphadenopathy noted. Respiratory: There is no accessory muscle use and the lungs are clear to auscultation bilaterally. Cardiovascular: Regular rate and rhythm. S1, S2 present. There are no murmurs, rubs, or gallops heard. Abdomen : Soft, nontender, nondistended. Bowel sounds present x4. Extremities: There is no lower extremity edema. DP and PT pulses are 2+ and symmetric. Musculoskeletal: There is no clubbing or cyanosis noted. The patient exhibits good strength in all extremities. Neurological: The patient is alert and oriented x4. Cranial nerves II through XII are grossly intact. Psychological: The patient is calm and cooperative. Skin: There are no rashes or abnormalities seen. She has a dressing to her right knee that is clean, dry, and intact. DIAGNOSTIC STUDIES/LAB DATA: Preoperative labs from 04/13/18: White blood cell count 6.9, hemoglobin 13.2, hematocrit 39, and platelet count 292. Sodium 139, potassium 4.6, chloride 106, CO2 of 23, BUN 15, creatinine 0.51, and glucose 99. Urinalysis significant for 1+ blood, specific gravity of 1.005, and squamous epithelial cells present. IMPRESSION: Ms. Kimble is a 58-year-old female with past medical history significant for rheumatoid arthritis, asthma, hypertension, hyperlipidemia, and osteoarthritis who is status post an elective right total knee arthroplasty with Dr. Kirstin Blum today. The hospitalist has been asked to assist with co- medical management of this patient during her hospitalization. ASSESSMENT/PLAN: 1. Right knee osteoarthritis. Status post right total knee arthroplasty, postop day. Management per Orthopedic Surgery. The patient will have her H and H trended. She will have her urinary catheter in place until the a.m., at which time it will be removed. She will have Physical Therapy and Occupational Therapy evaluations. She will be placed on a pain management regimen in addition to a bowel regimen. She will be on Eliquis per Orthopedics. 2. Hypertension. The patient was hypertensive in the recovery room with systolic blood pressures in the 150s to 180s. She received a dose of hydralazine. Blood pressures improved to the 150s. She had held her lisinopril today. Plan will be to resume her lisinopril in the morning. We will continue to monitor her blood pressures and may need to adjust her blood pressure medications. I suspect she is potentially hypertensive due to pain and not taking her blood pressure medicine today. 3. Hyperlipidemia. It appears that the patient is not currently on a statin. 4. Asthma. This is well controlled. She is not on any maintenance medication. She will be continued on albuterol inhaler as needed. 5. Rheumatoid arthritis. She follows with Dr. Lopez and Nehemiah De Leon NP. I am going to hold her methotrexate and Enbrel. These should be held for a month postoperatively per Dr. Lopez. 6. Right foot pain. The patient reports that when she had her initial injury to her knee approximately 6 months ago that she had the ladder fall on her right foot. She is now having increased pain in her right foot and is requesting x-rays. She feels that the pain has flared up today due to being off of her rheumatoid arthritis medications as it had not been bothering her previously. I have discussed this with Dr. Blum and will defer any management of this to Dr. Blum. 7. Fluids, electrolytes, and nutrition. She will be on a regular diet. 8. Code status. Full code. 9. DVT prophylaxis. She will be on Eliquis per Orthopedics. 10. Disposition. Per Orthopedic Surgery. TIME SPENT: Time for this consultation was approximately 60 minutes, greater than half of that was spent with the patient discussing medications, past medical history, the events leading up to her arrival today, and performing a physical examination. The case has been reviewed with the attending, Dr. Chester, who agrees with the plan of care. DEVON REDMAN, MANAGER CLIENT [id number]/CPS #: [id number] [place]
[2018-04-29] MEDS: Lactated Ringers 1000 ML Bag* 1,000 ML IV SCH (03:33)
[2018-04-29] MEDS: ceFAZolin 1 GM ADVAN(*) 1 GM in NS 0.9% 50 ML* 50 ML IVPB SCH ×2 (03:35→11:07)
[2018-04-29] MEDS: Acetaminophen TAB* 325 MG PO SCH ×2 (05:32→11:58)
[2018-04-29 06:13] LABS: Hematocrit 33 % (35-47); Hemoglobin 11.2 g/dl (12.0-16.0); Mean Platelet Volume 8.8 fL (7.4-10.4); Platelet Count 278 10^3/ul (150-450)
[2018-04-29 06:19] LABS: INR 1.05 (0.77-1.02)
[2018-04-29 06:31] LABS: BUN/Creatinine Ratio 22.8 (8-20); EGFR Non-African American 109.3 (>60); Potassium 4.1 mmol/L (3.5-5.0)
[2018-04-29] MEDS ORDERED: Omeprazole CAP (NF) 20 MG CAP.DR PO SCH (07:30)
[2018-04-29] MEDS: Docusate CAP* 100 MG PO SCH (08:03)
[2018-04-29] MEDS: Magnesium Hydroxide LIQ* 30 ML UDC PO SCH (08:04)
[2018-04-29] MEDS: oxyCODONE/Acetamin 5/325 MG* TAB PO PRN (08:04)
[2018-04-29] MEDS ORDERED: Apixaban* 2.5 MG TAB PO SCH (09:00)
[2018-04-29] MEDS ORDERED: Lisinopril TAB* 5 MG PO SCH (09:00)
--- NOTE | 2018-04-29 10:07 | OP ---
DATE OF OPERATION: 04/28/18 - ROOM 3343 DATE OF : 62. SURGEON: Kirstin Blum MD. HAULAGE ENGINE OPERATOR: SHANE Aguillon. Ms. Trivedi did help throughout the procedure with preparation of the leg, wound retraction, manipulation of the knee, and wound closure. ANESTHESIOLOGIST: Dr. Mahmood. ANESTHESIA: General. PRE-OP DIAGNOSIS: Severe endstage degenerative osteoarthritis of the right knee joint. POST-OP DIAGNOSIS: Severe endstage degenerative osteoarthritis of the right knee joint. OPERATIVE PROCEDURE: Right total knee arthroplasty. COMPLICATIONS: None. ESTIMATED BLOOD LOSS: 200 cc. SPECIMENS: Bone and cartilage from the right knee joint sent to Pathology. HARDWARE USED: This is cemented [employer] total knee arthroplasty hardware. Two packages of Simplex bone cement. For the femur, a right size 3 narrow Oxinium posterior stabilized Legion femoral component. For the tibia, a size 1 right Christina II tibial baseplate. For the insert, a 9-mm posterior stabilized articular insert size 1/2. For the patella, a 29-mm 3-peg all poly patella with 7.5 thickness. BRIEF HISTORY/INDICATIONS: Ms. Kimble is a 58-year-old female with history of rheumatoid arthritis and osteo-arthritis. She developed increasingly severe right knee pain and failed conservative treatment with antiinflammatories, pain medications, intraarticular injection, and physical therapy. Radiographs showed [id number] arthritis. Due to continued pain and decreased quality of life, she elected to undergo right total knee arthroplasty. Informed consent was obtained from the patient. She understood the risks of surgery included, but were not limited to bleeding, infection, damage to nearby structures, continued pain, need for further surgery, intraoperative fracture, nerve palsy, hardware failure or loosening, knee stiffness, loss of motion, stroke, heart attack, blood clot, and . She wished to proceed. INTRAOPERATIVE FINDINGS: Intraoperatively, the patient was noted to have severe arthritis with complete loss of cartilage in all 3 compartments. She had extensive osteophyte formation. DESCRIPTION OF PROCEDURE: Ms. Kimble was identified in the preanesthesia unit. Her right lower extremity was marked as the correct operative site. Informed consent was signed and placed in the chart. The patient was taken to the operating room and placed under anesthesia without complications. A Rubin catheter was placed. The tourniquet was placed on the right thigh. Right lower extremity was prepped and draped in the usual sterile fashion. Preop time -out was made to correctly identify the patient side and site. Appropriate perioperative antibiotics were given within 1 hour of incision. Tourniquet was inflated. Total tourniquet time for this procedure was 47 minutes. A midline incision was made with a 10 blade and carried down to the extensor mechanism. A new 10 blade was used to make a standard medial parapatellar arthrotomy. The patella was subluxed laterally. Anterior horn of the lateral meniscus and ACL were sharply released. A drill was used to enter the distal femur. Intramedullary distal femoral cutting guide was pinned on the distal femur. Oscillating saw was used to make the distal femoral cut. Next, the external rotation guide was pinned on the distal femur. Distal femur was sized to a size 3. Size 3 multi-cutting jig was pinned on the distal femur. Oscillating saw was used to make the appropriate 4 chamfer cuts. The PCL was completely released. The tibia was subluxed anteriorly. Extramedullary tibial cutting guide was pinned on the proximal tibia. Oscillating saw was used to make the proximal tibial cut perpendicular to the mechanical axis of the tibia. The bone was carefully removed. The knee was brought out into full extension. A spacer block had good fit with the knee in full extension. Medial and lateral ligaments were well balanced. Flexion and extension gaps were well balanced. The knee was flexed up. A lamina corporate law specialist was placed both medially and laterally. Any remaining meniscus was carefully removed using electrocautery. Curved osteotome was used to remove any posterior osteophytes. Tibial tray and drop lissette were placed and once again confirmed a satisfactory tibial cut. A size 3 narrow right femoral trial was impacted onto the distal femur and had excellent fit and stability. The box for the posterior stabilized implant was prepared using a reamer and box cut osteotome. Size 1 tibial tray trial with a 9- mm insert trial was placed and the knee was taken through a range of motion. The knee had full extension to a 130 degrees of flexion. There was satisfactory patellofemoral tracking. The patella was everted and 7 mm of patellar bone and cartilage was carefully removed using an oscillating saw. The patella was sized to a size 29. Three peg holes were drilled through the size 29 guide. A 29 trial patella with 7.5 thickness was placed and the knee was taken through a range of motion. There was satisfactory patellofemoral tracking. The trials were carefully removed. The tibia was subluxed anteriorly and sized to a size 1. Proximal tibia was prepared using a size 1 keel punch. All bony cut surfaces were copiously irrigated and dried. Final implants were cemented into place starting with the tibia, followed by the femur, and last the patella. A 9-mm insert trial was placed and the knee was brought out into full extension. Tourniquet was turned down at 47 minutes. The knee was copiously irrigated with sterile saline and dried. Once the cement had fully cured, the insert trial was removed. Any excess cement was removed from around the capsule and hardware. Final insert chosen was a 9-mm posterior stabilized articular insert size 1/2. This was locked into position on the tibial tray. Stability of the insert was checked and rechecked and noted to be stable. The extensor mechanism was closed using interrupted #1 Vicryls. The rest of the incision was closed in a layered fashion using 0 and 2-0 Vicryls. Skin was closed using running 3-0 nylon suture. Sterile Xeroform, 4x4s, and Webril were used to cover the incision. Claudio wrap and cold pack were placed over this. The patient's anesthesia was reversed without difficulty. She was taken to the PACU in stable condition. Intended weightbearing will be weightbearing as tolerated. Intended DVT prophylaxis will be Eliquis twice a day. [id number]/[facility] #: [id number] [place]
--- NOTE | 2018-04-29 10:17 | PN ---
Progress Note - Progress Note Date of Service: 04/29/18 SOAP: Subjective: []Patient seen OOB in chair. Doing very well, pain under good control with oral narcotics. She denies SOB, CP, palpitations or dizziness. She is looking forward to discharge this afternoon after PT. Requesting hydrocodone instead of oxycodone for pain on discharge. Objective: [] Vital Signs Temp 97.7 F 04/29/18 07:34 Pulse 88 04/29/18 07:34 Resp 18 04/29/18 08:04 BP 117/64 04/29/18 07:34 Pulse Ox 96 04/29/18 07:34 Intake & Output 04/28/18 04/29/18 04/29/18 18:59 06:59 18:59 Intake Total 1800 1350 755 Output Total 2675 300 Balance 1800 -1325 455 Weight 137 lb Intake: IV Fluids 1500 935 545 ABX - CEFAZOLIN 55 LR 935 490 lr 1500 IVPB 55 ABX - CEFAZOLIN 55 Oral 300 360 210 Output: Urine 0 300 Rubin 2675 Laboratory Results - last 24 hr 04/29/18 04/29/18 04/29/18 04:49 04:49 04:49 Hgb 11.2 L Hct 33 L Plt Count 278 MPV 8.8 INR (Anticoag Therapy) 1.05 H Sodium 139 Potassium 4.1 Chloride 106 Carbon Dioxide 27 Anion Gap 6 BUN 13 Creatinine 0.57 Est GFR ( Amer) 132.3 Est GFR (Non-Af Amer) 109.3 BUN/Creatinine Ratio 22.8 H Glucose 165 H Calcium 9.0 Right knee dressings are dry and intact- will change before discharge later today calf NT and soft +DF right ankle sensation/ circulation intact distally Assessment: []s/p RTK arthroplasty POD #1 Plan: []PT session this afternoon Discharge home after PT Eliguis 2.5 mg BID for DVT prophylaxis for 1 month post op Follow up in 10-14 days as scheduled with Dr. Blum
[2018-04-29 11:29] VITALS: BP 114/79
--- NOTE | 2018-04-29 15:13 | PN ---
Subjective Date of Service: 04/29/18 Interval History: Patient seen and examined at bedside. Denies fever, chills, shortness of breath , chest discomfort, N/V/D. Reports that her pain is controlled and she is ready for discharge to home later today. Family History: Unchanged from Admission Social History: Unchanged from Admission Past Medical History: Unchanged from Admission Objective Active Medications: Acetaminophen (Tylenol Tab*) 975 mg PO Q8H MOHAN Albuterol (Ventolin Hfa Inhaler*) 1 puff INH Q4H PRN Reason: SHORTNESS OF BREATH Apixaban (Eliquis*) 2.5 mg PO BID MOHAN Bisacodyl (Dulcolax Supp*) 10 mg FL DAILY PRN Reason: constipation Cyclobenzaprine HCl (Flexeril Tab*) 10 mg PO TID PRN Reason: SPASMS Diphenhydramine HCl (Benadryl Iv*) 12.5 mg IV Q6H PRN Reason: PRURITIS Docusate Sodium (Colace Cap*) 100 mg PO BID MOHAN Lactated Ringer's (Lactated Ringers 1000 Ml Bag*) 1,000 mls @ 100 mls/hr IV PER RATE MOHAN Lactulose (Lactulose*) 30 ml PO Q6H PRN Reason: constipation Lisinopril (Prinivil Tab*) 2.5 mg PO QAM MOHAN Magnesium Hydroxide (Milk Of Magnesia Liq*) 30 ml PO BID MOHAN Magnesium Hydroxide (Milk Of Magnesia Liq*) 30 ml PO Q6H PRN Reason: constipation Morphine Sulfate (Morphine Vial*) 2 mg IV Q2H PRN Reason: PAIN Omeprazole (Prilosec Cap*) 20 mg PO QAM@0730 MOHAN Ondansetron HCl (Zofran Inj*) 4 mg IV Q6H PRN Reason: nausea Ondansetron HCl (Zofran Tab*) 4 mg PO Q6H PRN Reason: NAUSEA Oxycodone HCl (Roxycodone Tab*) 10 mg PO Q4H PRN Reason: SEVERE PAIN Oxycodone/Acetaminophen (Percocet 5/325 Tab*) 1 tab PO Q4H PRN Reason: PAIN Oxycodone/Acetaminophen (Percocet 5/325 Tab*) 2 tab PO Q4H PRN Reason: PAIN Polyethylene Glycol/Electrolytes (Miralax*) 17 gm PO DAILY PRN Reason: Constipation Tramadol HCl (Ultram*) 50 mg PO Q6H PRN Reason: PAIN Vital Signs - 8 hr 04/29/18 04/29/18 04/29/18 07:34 08:00 08:04 Temperature 97.7 F Pulse Rate 88 Respiratory 17 18 18 Rate Blood Pressure 117/64 (mmHg) O2 Sat by Pulse 96 96 Oximetry 04/29/18 04/29/18 04/29/18 11:05 11:08 12:42 Temperature 97.6 F Pulse Rate 83 Respiratory 18 16 18 Rate Blood Pressure 114/79 (mmHg) O2 Sat by Pulse 98 Oximetry Oxygen Devices in Use Now: None Appearance: NAD, sitting up in a chair Ears/Nose/Mouth/Throat: Mucous Membranes Moist Respiratory: Symmetrical Chest Expansion and Respiratory Effort, Clear to Auscultation Cardiovascular: NL Sounds; No Murmurs; No JVD, RRR Abdominal: NL Sounds; No Tenderness; No Distention Extremities: - - Trace to mild edema to right LE Skin: - - Dressing to right knee clean, dry and intact Neurological: Alert and Oriented x 3, NL Muscle Strength and Tone Lines/Tubes/Other Access: Clean, Dry and Intact Peripheral IV - site benign Nutrition: Taking PO's Result Diagrams: 04/29/18 04:49 04/29/18 04:49 Assess/Plan/Problems-Billing Assessment: Ms. Kimlbe is a 58 yo female with PMH significant for HTN, HLD, asthma, and RA who presented to the hospital for an elective right total knee arthroplasty with Dr. Blum. - Patient Problems (1) Status post total right knee replacement Code(s): Z96.651 - PRESENCE OF RIGHT ARTIFICIAL KNEE JOINT SNOMED Code(s): 9817489441225 Comment: - POD #1, management per Orthopedics - HH stable - Continue bowel and pain regimen (2) HTN (hypertension) Code(s): I10 - ESSENTIAL (PRIMARY) HYPERTENSION SNOMED Code(s): 74855471 Comment: - Now normotensive, SBP 100-110's - Suspect post-op HTN was secondary to pain and lisinopril being held the day of surgery - Continue lisinopril (3) HLD (hyperlipidemia) Code(s): E78.5 - HYPERLIPIDEMIA, UNSPECIFIED SNOMED Code(s): 28428706 Comment: - Not currently on a statin (4) Asthma Code(s): J45.909 - UNSPECIFIED ASTHMA, UNCOMPLICATED SNOMED Code(s): 633606810 Comment: - No signs of acute exacerbation - Continue albuterol PRN (5) Rheumatoid arthritis Code(s): M06.9 - RHEUMATOID ARTHRITIS, UNSPECIFIED SNOMED Code(s): 48341903 Comment: - Hold metotrexate and Enbrel for 1 month per Rheumatology (6) Right foot pain Code(s): M79.671 - PAIN IN RIGHT FOOT SNOMED Code(s): 37046509 Comment: - Pain is improving - Right ankle Xray - osteoarthritis and soft tissue swelling - Management per Ortho (7) DVT prophylaxis Code(s): OAR0957 - SNOMED Code(s): 519331853 Comment: - Eliquis per Ortho (8) Full code status Code(s): Z78.9 - OTHER SPECIFIED HEALTH STATUS SNOMED Code(s): 409801987 Status and Disposition: Inpatient. Disposition per Orthopedics. Plan for discharge to home later today. Attending: Jair Barron
--- NOTE | 2018-04-29 20:46 | DS ---
DISCHARGE SUMMARY: DATE OF ADMISSION: 04/28/18 DATE OF DISCHARGE: 04/29/18 ATTENDING PHYSICIAN: Dr. Kirstin Blum.* (DICTATED BY SHANE CHRISTOPHER) ADMISSION DIAGNOSIS: Severe end-stage degenerative osteoarthritis, right knee. DISCHARGE DIAGNOSIS: Severe end-stage degenerative osteoarthritis, right knee. SURGERY PERFORMED: Right total knee arthroplasty. HOSPITAL COURSE: The patient is a 58-year-old female with a history of rheumatoid arthritis and osteoarthritis. Due to increasingly severe right knee pain and failed conservative management with anti-inflammatories, pain medications, intra- articular cortisone injections and physical therapy, she elected to proceed with right total knee arthroplasty. She was taken to the operating room under the care of Dr. Kirstin Blum on the date of 04/28/18, for the aforementioned procedure. She tolerated the procedure well and left the operating room in stable condition. Postoperatively, she progressed very well with her physical therapy and occupational therapy goals, bearing weight as tolerated on the right lower extremity. She had no medical or orthopedic postoperative complications and was found to be stable for discharge to home on the date of 04/29/18. CONDITION ON DISCHARGE: Temperature is 97.6, heart rate 83, respiratory rate 16 , O2 sats 98% on room air, blood pressure 114/79. Her incision is healing without erythema. Her calf is nontender and soft. She has active dorsiflexion of her right ankle. PLAN: The patient will be discharged to home. She will participate in outpatient physical therapy. She will use Eliquis 2.5 mg p.o. b.i.d. for 1 month postoperatively for DVT prophylaxis. She is provided with a prescription of [place] 10/325 half tab to 1 tab p.o. q.4 hours p.r.n. pain #42 tabs, zero refill provided. Both prescriptions sent to [id number] here at [facility] prior to discharge. She will follow up in the office as scheduled with Dr. Blum in 10 to 14 days. SHANE CHRISTOPHER [id number]/[facility] #: [id number] [facility]
== END 2018-04-29 14:05 | disposition home or self-care (01) | DRG 470 ==
LOC: AA 08:16 → SSU 16:57
PROVIDERS: ADMIT Orthopaedic Surgery Adult Reconstructive Orthopaedic Surgery; ATTEND Orthopaedic Surgery Adult Reconstructive Orthopaedic Surgery
PROC: 0SRC069 Replacement of Right Knee Joint with Oxidized Zirconium on Polyethylene Synthetic Substitute, Cemented, Open Approach (ICD-10-PCS; principal; 2018-04-28 11:00)
DX: M17.11 Unilateral primary osteoarthritis, right knee (principal); M06.9 Rheumatoid arthritis, unspecified; J45.909 Unspecified asthma, uncomplicated; I10 Essential (primary) hypertension; Z96.642 Presence of left artificial hip joint; M25.461 Effusion, right knee; M21.161 Varus deformity, not elsewhere classified, right knee; K21.9 Gastro-esophageal reflux disease without esophagitis; M54.5 Low back pain; E78.5 Hyperlipidemia, unspecified; M19.071 Primary osteoarthritis, right ankle and foot; M25.761 Osteophyte, right knee; Z90.49 Acquired absence of other specified parts of digestive tract; Z83.3 Family history of diabetes mellitus; Z80.3 Family history of malignant neoplasm of breast; Z87.891 Personal history of nicotine dependence; Z72.89 Other problems related to lifestyle; Z86.718 Personal history of other venous thrombosis and embolism
CPT/HCPCS: 36415; 80048; 85014; 85018; 85049; 85610; 86850; 86900; 86901; A9270-GY; G8987-GO-CI; G8988-GO-CI; G8989-GO-CI; J0360; J0690; J1100; J1170; J1200; J2250; J2405; J2704; J2795; J3010; J3490